=== PATIENT | female | born 1945 | race Caucasian/White ===

== ENCOUNTER → 2019-08-09 12:19 | Outpatient (BNVA) | payer MEDICARE, SELFPAY | PROVIDERS: Family Provider Nurse Practitioner Family; Visit Provider Nurse Practitioner Family | DX: I10 Essential (primary) hypertension (principal) | CPT/HCPCS: 80053; 85025 ==

== ENCOUNTER → 2020-01-08 10:55 | Outpatient (BNVA) | payer MEDICARE, SELFPAY | PROVIDERS: Family Provider Nurse Practitioner Family; Visit Provider Nurse Practitioner Family | DX: I10 Essential (primary) hypertension (principal); F41.9 Anxiety disorder, unspecified | CPT/HCPCS: 80053; 80061; 84443; 85025 ==

== ENCOUNTER → 2020-04-21 11:12 | Outpatient (BNVA) | payer MEDICARE, SELFPAY | PROVIDERS: Family Provider Nurse Practitioner Family; Visit Provider Nurse Practitioner Family | DX: M19.032 Primary osteoarthritis, left wrist (principal); M25.432 Effusion, left wrist; M25.532 Pain in left wrist; M79.602 Pain in left arm | CPT/HCPCS: 73080; 73110 ==

== ENCOUNTER → 2020-10-07 10:42 | Outpatient (BNVA) | payer MEDICARE, SELFPAY | PROVIDERS: Family Provider Nurse Practitioner Family; PCP Nurse Practitioner Family; Visit Provider Nurse Practitioner Family | DX: I10 Essential (primary) hypertension (principal); F41.9 Anxiety disorder, unspecified; M79.89 Other specified soft tissue disorders; R01.1 Cardiac murmur, unspecified; M15.9 Polyosteoarthritis, unspecified; R26.81 Unsteadiness on feet | CPT/HCPCS: 80053; 80061; 83880; 84443; 85025 ==

== ENCOUNTER 2020-11-03 10:57 | Outpatient (CLI) | payer MEDICARE, SELFPAY ==
--- NOTE | 2020-11-03 11:00 | USCV_ITS ---
Deyanira Yoon Age: 75 Gender: F : 1945 Exam Date: 11/03/2020 11:18 Ordering Phys: Alisa Garcia FOUNTAIN ATTENDANT-Schuyler Technologist: Kiera Philip Exam Location: [facility] [place] Indication: HTN BP: 132 / 56 HR: 68 Rhythm: Sinus Technical Quality: Good MEASUREMENTS (Male / Female) Normal Values 2D ECHO LV Diastolic Diameter PLAX 4.9 cm 4.2 - 5.9 / 3.9 - 5.3 cm LV Systolic Diameter PLAX 2.6 cm IVS Diastolic Thickness 1.1 cm 0.6 - 1.0 / 0.6 - 0.9 cm IVS Systolic Thickness 1.8 cm LVPW Diastolic Thickness 0.8 cm 0.6 - 1.0 / 0.6 - 0.9 cm LVPW Systolic Thickness 1.5 cm LVOT Diameter 2.0 cm LV Ejection Fraction 2D Teich 78.9 % LV Ejection Fraction MOD 2C 73.0 % LV Ejection Fraction 2C AL 73.3 % LA Diameter 3.3 cm LA Width 2.7 cm LA Height 3.6 cm RA Width 3.2 cm RA Height 2.9 cm Aorta at Sinotubular Diameter 2.9 cm M-MODE LV Diastolic Diameter MM 5.2 cm 4.2 - 5.9 / 3.9 - 5.3 cm LV Systolic Diameter MM 2.8 cm LV Ejection Fraction MM Teich 77.3 % IVS Diastolic Thickness MM 0.8 cm 0.6 - 1.0 / 0.6 - 0.9 cm IVS Systolic Thickness MM 1.6 cm LVPW Diastolic Thickness MM 1.0 cm 0.6 - 1.0 / 0.6 - 0.9 cm LVPW Systolic Thickness MM 1.5 cm Aortic Annulus Diameter 2.5 cm LA Ao Ratio MM 1.5 MV E Point Septal Separation 0.1 cm DOPPLER AV Peak Velocity 245.0 cm/s LVOT Peak Velocity 96.0 cm/s AV Area Cont Eq vti 1.5 cm squared AV Area Cont Eq pk 1.3 cm squared MV Area PHT 2.9 cm squared Mitral E to A Ratio 1.0 MV E' Velocity 70.8 cm/s Mitral E to MV E' Ratio 20.0 Mitral E to LV E' Lateral Ratio 26.1 Mitral E to LV E' Septal Ratio 16.4 TR Peak Velocity 262.0 cm/s TR Peak Gradient 27.5 mmHg TV Peak E Velocity 47.0 cm/s Right Atrial Pressure 3.0 mmHg Pulmonary Artery Systolic Pressu 30.5 mmHg PV Peak Velocity 123.0 cm/s RV Acceleration Time 0.1 s RV Ejection Time 0.3 s RV AcT/ET 0.3 FINDINGS Left Ventricle Normal left ventricular size and systolic function, EF 72 %. No regional wall motion abnormalities. Right Ventricle The right ventricle is normal in size and function. Right Atrium The right atrium is normal in size. Left Atrium The left atrium is normal in size. Mitral Valve Trace mitral valve regurgitation. Aortic Valve Thickened aortic valve. Trace to mild aortic valve regurgitation. Tricuspid Valve [id number] tricuspid valve regurgitation. Estimated pulmonary artery peak systolic pressure of 31 mmHg Pulmonic Valve Structurally normal pulmonic valve without significant stenosis. There is no pulmonic regurgitation. Pericardium Normal pericardium without effusion. Aorta Normal ascending aorta dimension. CONCLUSIONS Normal left ventricular size and systolic function, EF 72 %. No regional wall motion abnormalities. Thickened aortic valve. Trace to mild aortic valve regurgitation. Trace mitral valve regurgitation. [id number] tricuspid valve regurgitation. Estimated pulmonary artery peak systolic pressure of 31 mmHg. There is no pericardial effusion. There are no intracardiac masses. No previous study is available for comparison. Dr Alexandr Parry MD [facility] (Electronically Signed) Final Date: 09 Nov 2020 09:05 S
== END 2020-11-03 10:58 | disposition home or self-care (01) ==
LOC: RAD 11:01
PROVIDERS: PCP Nurse Practitioner Family; Visit Provider Nurse Practitioner Family
DX: I10 Essential (primary) hypertension (principal); R01.1 Cardiac murmur, unspecified; M79.89 Other specified soft tissue disorders; I08.3 Combined rheumatic disorders of mitral, aortic and tricuspid valves
CPT/HCPCS: 80053; 80061; 83880; 84443; 85025; 93306

== ENCOUNTER → 2021-01-13 15:32 | Outpatient (BNVA) | payer MEDICARE, SELFPAY | PROVIDERS: PCP Nurse Practitioner Family; Visit Provider Nurse Practitioner | DX: K59.00 Constipation, unspecified (principal); I10 Essential (primary) hypertension | CPT/HCPCS: 74018; 85025 ==

== ENCOUNTER → 2021-01-25 14:18 | Outpatient (BNVA) | payer MEDICARE, SELFPAY | PROVIDERS: PCP Nurse Practitioner Family; Visit Provider Nurse Practitioner | DX: K92.1 Melena (principal); R19.5 Other fecal abnormalities | CPT/HCPCS: 74018 ==

== ENCOUNTER → 2021-02-03 11:42 | Outpatient (BNVA) | payer MEDICARE, SELFPAY | PROVIDERS: PCP Nurse Practitioner Family; Visit Provider Nurse Practitioner | DX: R19.5 Other fecal abnormalities (principal); M19.90 Unspecified osteoarthritis, unspecified site; F41.9 Anxiety disorder, unspecified; I10 Essential (primary) hypertension; M47.894 Other spondylosis, thoracic region; M47.896 Other spondylosis, lumbar region; K56.7 Ileus, unspecified | CPT/HCPCS: 72072; 72100; 74018 ==

== ENCOUNTER 2021-02-21 11:39 | Emergency (ER) | payer MEDICARE, SELFPAY ==
[2021-02-21 11:58] VITALS: BP 119/67; PULSE 80; RESP 18; TEMP 36.9; O2SAT 98; BMI 24.7
[2021-02-21 12:28] VITALS: BP 111/70; PULSE 72; RESP 18; O2SAT 98
--- NOTE | 2021-02-21 12:28 | ED_ITS ---
HPI - General Adult General: Chief complaint: GI Bleed Stated complaint: ABDOMINAL PAIN/ GI BLEEDING Time Seen by Provider: 02/21/21 11:42 History of Present Illness: HPI narrative: Patient is a 75-year-old female with history of anxiety, hypertension, on aspirin who presents the emergency room with complaints of rectal bleeding and passage of clots x1 day. Patient says that over the last month, she has had some lower abdominal pain and she thinks that my bladder in my rectum is hurting. Earlier today, patient says that she cannot control her urine bladder and accidentally released herself. In addition, shortly after, she had the episode of rectal bleeding with bright red blood and dark stool. Patient denies any hemoptysis, melena/abdominal pain, nausea/vomiting, any anticoagulation use. Onset:1 day acutely, 1 month chronically Duration:1 day acutely Location:home Severity:mild/moderate Review of Systems Narrative: Constitutional: No fever, no chills. HEENT: No vision changes CV: No chest pain, no palpitations PULM: no cough, no dyspnea. GI: +lower abdominal pain, no N/V/D. +rectal bleeding : No dysuria, +polyuria MSKEL: No muscle pain SKIN: No new rashes, no lesions. NEURO: No headache, no focal weakness. HEME: No visible bruises PSYCH: Normal mood PFSH ED PFSH: Medical History Anxiety Arthritis Environmental and seasonal allergies Essential hypertension Surgical History Hx of cholecystectomy Hx of hernia repair Hx of total hysterectomy 1996 Family History Mother Diabetes Cancer ovarian, breast, Grandmother Diabetes Father Congestive heart failure Social History Second hand smoke exposure: No Smoking risk assessment/counseling performed?: No Alcohol intake: never Desire information about alcohol rehabilitation?: No Counseling given: No Desire information about substance/drug rehabilitation?: No Counseling given: No Adopted: No Caregiver/support person: No Lives independently: Yes Household members: none Housing: House Marital status: / service: No Current occupational status: retired History of recent travel: No Current gender identity: Female Female Reproductive History: Date of last menstrual period: 09/03/20 Physical Exam Narrative: EXAM NARRATIVE: Head: Atraumatic Eyes: PERRL, conjunctiva without injection ENT: Mucous membrane moist NECK: Supple, ROM intact LUNGS: LCTAB, no crackles/rhonchi CV: RRR ABDOMEN: Soft, +mild lower abdominal tenderness. NO guarding rebound, guarding, rigidity. No CVA tenderness to percussion. Neg Wiseman/Neg McBurney's point tenderness, no suprabupic tenderness to palpation. EXTREMITY: Normal ROM SKIN: No rash or erythema NEURO: Awake and alert, no focal motor deficits PSYCH: Normal mood and affect RECTAL: Rectal exam without evidence of hemorrhoids, fissures. No prostatic enlargment, no tenderness of prostate. +bright blood per rectum Course Vital Signs: Vital signs: Vital Signs Temperature 98.5 F 02/21/21 11:58 Pulse Rate 71 02/21/21 15:29 Respiratory Rate 18 02/21/21 12:28 Blood Pressure 131/72 02/21/21 15:29 Pulse Oximetry 99 02/21/21 15:29 MDM - General Adult MDM Narrative: Medical decision making narrative: 75-year-old female presenting to the emergency room with complaints of lower abdominal pain, blood in stool, and concern for dark stool. On exam, patient is hemodynamically stable with mild tenderness to palpation of the lower abdomen. On rectal exam, patient is noted to have bright red blood. No signs of melena. On reassessment, HDS without any signs of pain or bleeding. Findings of rectal mass concerning for cancer discussed extensively with patient. I discussed case with Dr. Buchanan, who recommended outpatient followup tomorrow morning in his clinic to establish care for for proctoscopy and biopsy. I have discussed this option and have given patient the provider's clinic phone number and contact information. Patient also has Dr. Sims with whom she is scheduled for colonoscopy on 03/11/2021. I also explained to the patient that she can follow upw ith Dr. Sims should she chose to. A copy of her CT report is included in her discharge paperwork. Disposition: Discharge. Patient is given return precautions for any signs of worsening bleed, abdominal complaints, vomiting, dehydration, lightheadedness, or any new or concerning complaints. Lab Data: Labs: Lab Results 02/21/21 02/21/21 02/21/21 Range/Units 11:55 11:55 11:55 WBC 4.9 (4.0-10.0) 10^3/ uL RBC 3.88 L (4.1-5.3) 10^6/u L Hgb 11.8 (11.5-15.3) g/dL Hct 37.1 (37.0-47.0) % MCV 95.6 (81-99) fl MCH 30.4 (28.0-34.0) pg MCHC 31.8 (30.0-36.0) g/dL RDW 14.3 (12.1-15.1) % Plt Count 245 (130-400) 10^3/c mm MPV 9.7 (7.4-10.4) fL Neut % (Auto) 77.7 % Lymph % (Auto) 14.2 % Claiborne % (Auto) 6.7 % Eos % (Auto) 0.8 % Baso % (Auto) 0.4 % Neut # (Auto) 3.82 (1.8-7.7) 10^3/u L Lymph # (Auto) 0.7 L (0.8-4.8) 10^3/u L Claiborne # (Auto) 0.3 (0.2-0.9) 10^3/u L Eos # (Auto) 0.0 (0.0-0.8) 10^3/u L Baso # (Auto) 0.0 (0.0-0.1) 10^3/u L Nucleated RBC % (a uto) 0 % Nucleated RBCs # 0.0 /100WBC PT 14.00 (12.1-14.9) SECO NDS INR 1.05 (0.8-1.2) APTT 28.5 (23.9-36.7) SECO NDS Sodium 140 (136-145) mmol/L Potassium 3.9 (3.5-5.1) mmol/L Chloride 105 (98-107) mmol/L Carbon Dioxide 25 (22-29) mmol/L Anion Gap 13.9 (5-19) BUN 12 (8-23) mg/dL Creatinine 0.4 L (0.5-0.9) mg/dL GFR Calculation Not Reportable Glucose 81 (65-115) mg/dL Calculated Osmolal ity 289 (285-295) mOsm/k g Calcium 8.6 (8.5-10.5) mg/dL Total Bilirubin 0.6 (0.15-1.2) mg/dL AST 17 (0-32) U/L ALT 10 (0-33) U/L Alkaline Phosphata se 63 (35-105) IU/L Total Protein 6.1 L (6.6-8.7) g/dL Albumin 3.5 (3.5-5.2) g/dL Globulin 2.6 (1.3-4.6) g/dL Lipase 29 (13-60) U/L Urine Color (Yellow) Urine Appearance (CLEAR) Urine pH (5-7) Ur Specific Gravit y (1.005-1.030) Urine Protein (Negative) Urine Glucose (UA) (Normal) Urine Ketones (Negative) Urine Blood (Negative) Urine Nitrate (Negative) Urine Bilirubin (Negative) Urine Urobilinogen (Negative) mg/dL Ur Leukocyte Kiki ase (Negative) Urine RBC (0-2) /hpf Urine WBC (0-5) /hpf Ur Squamous Epith Cells (0-5) /hpf Amorphous Sediment Urine Bacteria (NONE) /hpf Blood Type Rho(D) Type Antibody Screen 02/21/21 02/21/21 Range/Units 11:55 14:14 WBC (4.0-10.0) 10^3/ uL RBC (4.1-5.3) 10^6/u L Hgb (11.5-15.3) g/dL Hct (37.0-47.0) % MCV (81-99) fl MCH (28.0-34.0) pg MCHC (30.0-36.0) g/dL RDW (12.1-15.1) % Plt Count (130-400) 10^3/c mm MPV (7.4-10.4) fL Neut % (Auto) % Lymph % (Auto) % Claiborne % (Auto) % Eos % (Auto) % Baso % (Auto) % Neut # (Auto) (1.8-7.7) 10^3/u L Lymph # (Auto) (0.8-4.8) 10^3/u L Claiborne # (Auto) (0.2-0.9) 10^3/u L Eos # (Auto) (0.0-0.8) 10^3/u L Baso # (Auto) (0.0-0.1) 10^3/u L Nucleated RBC % (a uto) % Nucleated RBCs # /100WBC PT (12.1-14.9) SECO NDS INR (0.8-1.2) APTT (23.9-36.7) SECO NDS Sodium (136-145) mmol/L Potassium (3.5-5.1) mmol/L Chloride (98-107) mmol/L Carbon Dioxide (22-29) mmol/L Anion Gap (5-19) BUN (8-23) mg/dL Creatinine (0.5-0.9) mg/dL GFR Calculation Glucose (65-115) mg/dL Calculated Osmolal ity (285-295) mOsm/k g Calcium (8.5-10.5) mg/dL Total Bilirubin (0.15-1.2) mg/dL AST (0-32) U/L ALT (0-33) U/L Alkaline Phosphata se (35-105) IU/L Total Protein (6.6-8.7) g/dL Albumin (3.5-5.2) g/dL Globulin (1.3-4.6) g/dL Lipase (13-60) U/L Urine Color Yellow (Yellow) Urine Appearance Clear (CLEAR) Urine pH 7 (5-7) Ur Specific Gravit y 1.005 (1.005-1.030) Urine Protein Neg (Negative) Urine Glucose (UA) Norm (Normal) Urine Ketones 1+ H (Negative) Urine Blood 3+ H (Negative) Urine Nitrate Negative (Negative) Urine Bilirubin Neg (Negative) Urine Urobilinogen 1 H (Negative) mg/dL Ur Leukocyte Kiki ase Negative (Negative) Urine RBC Rare (0-2) /hpf Urine WBC 0-4 H (0-5) /hpf Ur Squamous Epith Cells 0-4 H (0-5) /hpf Amorphous Sediment Not Reportable Urine Bacteria Trace (NONE) /hpf Blood Type O Positive Rho(D) Type Positive Antibody Screen Negative Imaging Data^: Other Imaging: Radiologist's impression: [facility] [place], [place] [address] Scan ReportSigned Patient: Andreas Yoon #: [id number]: 1945cct#:[id number]/Sex: 75 / FADM Date: 02/21/21Loc: ERRoom/Bed:Attending Dr: Ordering Provider/Ordering MD: Riley Steele MD Date of Service: 02/21/21 Procedure(s): CT abdomen pelvis w con* [id number] Accession Number(s): [id number] Report Number: [id number] PROCEDURE INFORMATION: Exam: CT Abdomen And Pelvis With Contrast Exam date and time: 02/21/2021 12:27 PM Age: 75 years old Clinical indication: Abdominal pain; Colic; Patient HX: Hematochezia; Additional info: Rule out diverticulosis TECHNIQUE: Imaging protocol: Computed tomography of the abdomen and pelvis with contrast. Radiation optimization: All CT scans at this facility use at least one of these dose optimization techniques: automated exposure control; mA and/or kV adjustment per patient size (includes targeted exams where dose is matched to clinical indication); or iterative reconstruction. Contrast material: OMNIPAQUE 300; Contrast volume: 95 ml; Contrast route: INTRAVENOUS (IV); COMPARISON: CR XR abdomen 1V* [id number] 02/03/2021 11:44 AM RADIATION DOSE METRICS: Total DLP (mGy-cm): 1111.14 FINDINGS: Liver: No mass. Gallbladder and bile ducts: Cholecystectomy. Minimal nonspecific extrahepatic ductal dilatation. Pancreas: Normal. No ductal dilation. Spleen: Normal. No splenomegaly. Adrenal glands: Normal. No mass. Kidneys and ureters: Normal. No hydronephrosis. Stomach and bowel: Probably ulcerated rectal mass, approximately 6 cm maximum diameter. Direct extension posteriorly from the mass into the presacral space, no adjacent sacral or coccygeal destruction. The proximal colon is minimally dilated, there is a moderate amount of fecal material. Colonic diverticulosis without acute diverticulitis. Appendix: No evidence of appendicitis. Intraperitoneal space: No free air. No significant fluid collection. Vasculature: No abdominal aortic aneurysm. Lymph nodes: No significant adenopathy. Urinary bladder: Unremarkable as visualized. Reproductive: Unremarkable as visualized. Bones/joints: No acute findings. Lower lumbar fusion. No acute fracture. Soft tissues: No acute findings. Postoperative change in the groin. CT/CT abdomen pelvis w con* [id number] IMPRESSION: Ulcerative rectal mass consistent with carcinoma, direct soft tissue extension posteriorly from the rectal mass into the presacral space. Correlate with proctoscopy. Radiation Dose CTDIVOL = (mGy): DLP = 1111.14 (mGy-cm) Dictated By:Juan Carlos Collier MDSigned By:Juan Carlos Collier MDSigned Date/Time:02/21/21 1441DD/ 1439 Discharge Plan Discharge Patient Disposition: Home Clinical Impression: Abdominal pain, Blood per rectum Condition: Stable Prescriptions: No Action aspirin [Adult Low Dose Aspirin] 81 mg tablet,delayed release (DR/EC) 81 mg PO DAILY RF: 0 loratadine [Claritin] 10 mg tablet 10 mg PO DAILY PRN (Reason: Allergy Symptoms) RF: 0 ibuprofen 200 mg tablet 200 mg PO Q6H PRN (Reason: Pain) RF: 0 Hold Instructions: Doctor's Order metoprolol succinate 25 mg tablet extended release 24 hr 25 mg PO DAILY 90 Days Qty: 90 RF: 1 hydroxyzine pamoate 25 mg capsule 25 mg PO BID PRN (Reason: anxiety) Qty: 60 RF: 2 losartan [Cozaar] 100 mg tablet 100 mg PO DAILY Qty: 30 RF: 2 citalopram 10 mg tablet 10 mg PO DAILY MDD see pharmacy comment RF: 0 Discharge Orders: Discharge ED (Routine); Ordered 02/21/21 Ordered By: Riley Steele Referrals: Alisa Garcia FNP-C [Primary Care Provider] - Patient Instructions: Abdominal Pain (ED) Activity Restrictions/Additional Instructions: Call Dr. Mckeon tomorrow morning to schedule for an appointment. His number is [phone]. Alternatively you can follow up with Dr. Sims. Come back to the emergency room if your symptoms worsen if you have any more rectal bleeding, any other concerning complaints. Here's your CT report: [facility] [place], [place] [address] Scan ReportSigned Patient: Andreas Yoon #: [id number]: 1946Acct#:[id number]/Sex: 75 / FADM Date: 02/21/21Loc: ERRoom/Bed:Attending Dr: Ordering Provider/Ordering MD: Riley Steele MD Date of Service: 02/21/21 Procedure(s): CT abdomen pelvis w con* [id number] Accession Number(s): [id number] Report Number: [id number] PROCEDURE INFORMATION: Exam: CT Abdomen And Pelvis With Contrast Exam date and time: 02/21/2021 12:27 PM Age: 75 years old Clinical indication: Abdominal pain; Colic; Patient HX: Hematochezia; Additional info: Rule out diverticulosis TECHNIQUE: Imaging protocol: Computed tomography of the abdomen and pelvis with contrast. Radiation optimization: All CT scans at this facility use at least one of these dose optimization techniques: automated exposure control; mA and/or kV adjustment per patient size (includes targeted exams where dose is matched to clinical indication); or iterative reconstruction. Contrast material: OMNIPAQUE 300; Contrast volume: 95 ml; Contrast route: INTRAVENOUS (IV); COMPARISON: CR XR abdomen 1V* [id number] 02/03/2021 11:44 AM RADIATION DOSE METRICS: Total DLP (mGy-cm): 1111.14 FINDINGS: Liver: No mass. Gallbladder and bile ducts: Cholecystectomy. Minimal nonspecific extrahepatic ductal dilatation. Pancreas: Normal. No ductal dilation. Spleen: Normal. No splenomegaly. Adrenal glands: Normal. No mass. Kidneys and ureters: Normal. No hydronephrosis. Stomach and bowel: Probably ulcerated rectal mass, approximately 6 cm maximum diameter. Direct extension posteriorly from the mass into the presacral space, no adjacent sacral or coccygeal destruction. The proximal colon is minimally dilated, there is a moderate amount of fecal material. Colonic diverticulosis without acute diverticulitis. Appendix: No evidence of appendicitis. Intraperitoneal space: No free air. No significant fluid collection. Vasculature: No abdominal aortic aneurysm. Lymph nodes: No significant adenopathy. Urinary bladder: Unremarkable as visualized. Reproductive: Unremarkable as visualized. Bones/joints: No acute findings. Lower lumbar fusion. No acute fracture. Soft tissues: No acute findings. Postoperative change in the groin. CT/CT abdomen pelvis w con* [id number] IMPRESSION: Ulcerative rectal mass consistent with carcinoma, direct soft tissue extension posteriorly from the rectal mass into the presacral space. Correlate with proctoscopy. Radiation Dose CTDIVOL = (mGy): DLP = 1111.14 (mGy-cm) Dictated By:Juan Carlos Collier MDSigned By:Juan Carlos Collier MDSigned Date/Time:02/21/21 1441DD/ 1439 Coding Level of Care Code ED Operations Project Manager for g Maryjane
--- NOTE | 2021-02-21 12:28 | W.ED.GIBLEED ---
HPI - GI Bleed General: Chief complaint: GI Bleed Stated complaint: ABDOMINAL PAIN/ GI BLEEDING Time Seen by Provider: 02/21/21 11:42 [facility] ED PFSH: Medical History Anxiety Arthritis Environmental and seasonal allergies Essential hypertension Surgical History Hx of cholecystectomy Hx of hernia repair Hx of total hysterectomy 1996 Family History Mother Diabetes Cancer ovarian, breast, Grandmother Diabetes Father Congestive heart failure Social History Second hand smoke exposure: No Smoking risk assessment/counseling performed?: No Alcohol intake: never Desire information about alcohol rehabilitation?: No Counseling given: No Desire information about substance/drug rehabilitation?: No Counseling given: No Adopted: No Caregiver/support person: No Lives independently: Yes Household members: none Housing: House Marital status: / service: No Current occupational status: retired History of recent travel: No Current gender identity: Female Course Vital Signs: Vital signs: Vital Signs Temperature 98.5 F 02/21/21 11:58 Pulse Rate 80 02/21/21 11:58 Respiratory Rate 18 02/21/21 11:58 Blood Pressure 119/67 02/21/21 11:58 Pulse Oximetry 98 02/21/21 11:58 Discharge Plan Discharge Prescriptions: No Action aspirin [Adult Low Dose Aspirin] 81 mg tablet,delayed release (DR/EC) 81 mg PO DAILY RF: 0 loratadine [Claritin] 10 mg tablet 10 mg PO DAILY PRNRF: 0 ibuprofen 200 mg tablet 200 mg PO Q6H PRNRF: 0 Hold Instructions: Doctor's Order metoprolol succinate 25 mg tablet extended release 24 hr 25 mg PO DAILY 90 Days Qty: 90 RF: 1 citalopram [Celexa] 40 mg tablet 20 mg PO DAILY Qty: 30 RF: 2 hydroxyzine pamoate 25 mg capsule 25 mg PO BID PRN (Reason: anxiety) Qty: 60 RF: 2 furosemide 20 mg tablet 20 mg PO DAILY Qty: 30 RF: 2 losartan [Cozaar] 100 mg tablet 100 mg PO DAILY Qty: 30 RF: 2 Coding Level of Care Code ED Panel Saw Operator for Sofi Wesley
[2021-02-21 12:46] LABS: INR 1.05 (0.8-1.2)
[2021-02-21 12:47] LABS: Partial Thromboplastin Time 28.5 SECONDS (23.9-36.7)
[2021-02-21 12:51] LABS: Alanine Aminotransferase 10 U/L (0-33); Albumin Level 3.5 g/dL (3.5-5.2); Alkaline Phosphatase 63 IU/L (35-105); Anion Gap 13.9 (5-19); Aspartate Amino Transferase 17 U/L (0-32); Blood Urea Nitrogen 12 mg/dL (8-23); Calcium 8.6 mg/dL (8.5-10.5); Carbon Dioxide 25 mmol/L (22-29); Chloride 105 mmol/L (98-107); Globulin 2.6 g/dL (1.3-4.6); Glucose 81 mg/dL (65-115); Lipase 29 U/L (13-60); Osmolality Calculated 289 mOsm/kg (285-295); Potassium 3.9 mmol/L (3.5-5.1); Sodium 140 mmol/L (136-145); Total Bilirubin 0.6 mg/dL (0.15-1.2); Total Protein 6.1 g/dL (6.6-8.7)
[2021-02-21 12:56] LABS: Basophils % 0.4 %; Eosinophils % 0.8 %; Hematocrit 37.1 % (37.0-47.0); Hemoglobin 11.8 g/dL (11.5-15.3); Lymphocytes # 0.7 10^3/uL (0.8-4.8); Lymphocytes % 14.2 %; Mean Corpuscular HGB Conc 31.8 g/dL (30.0-36.0); Mean Corpuscular Hemoglobin 30.4 pg (28.0-34.0); Mean Corpuscular Volume 95.6 fl (81-99); Mean Platelet Volume 9.7 fL (7.4-10.4); Monocytes # 0.3 10^3/uL (0.2-0.9); Monocytes % 6.7 %; Neutrophils # 3.82 10^3/uL (1.8-7.7); Neutrophils % 77.7 %; Nucleated Red Blood Cells % 0 %; Platelet Count 245 10^3/cmm (130-400); Red Blood Count 3.88 10^6/uL (4.1-5.3); Red Cell Distribution Width 14.3 % (12.1-15.1); White Blood Count 4.9 10^3/uL (4.0-10.0)
[2021-02-21] MEDS: iohexol 300 mg/mL 100 mL Btl IV (13:19)
[2021-02-21 15:29] VITALS: BP 131/72; PULSE 71; O2SAT 99
[2021-02-21 15:30] LABS: Glucose Urine UA Norm (Normal); Ketones Urine 1+ (Negative); Protein Urine Neg (Negative); Specific Gravity, Urine 1.005 (1.005-1.030); Urine Appearance Clear (CLEAR); Urine Color Yellow (Yellow); pH Urine 7 (5-7)
[2021-02-21 15:31] LABS: Add Urine Culture? No; Add Urine Microscopic? YES; Bacteria Urine TRACE /hpf; Bilirubin Urine Neg (Negative); Blood Urine 3+ (Negative); Leukocyte Esterase Urine Negative (Negative); Nitrate Urine Negative (Negative); RBC Urine RARE /hpf (0-2); Squamous Epithelial Cell Urine 0-4 /hpf (0-5); Urobilinogen Urine 1 mg/dL (Negative); WBC Urine 0-4 /hpf (0-5)
--- NOTE | 2021-02-22 10:36 | DCPLANNER ---
care transition manager had message to schedule a follow up appointment for patient with GI specialist. care transition manager spoke with patient and she would like for business case analyst to fax patients information to the office of Dr. Sims. care transition manager faxed patients information to the office of Dr. Sims, who will call patient with appointment information.
--- NOTE | 2021-03-02 14:40 | DCPLANNER ---
power plant operations manager called and spoke with Hannah at the office of Dr. Sims, to confirm that patient has been seen. power plant operations manager was told that patient was seen by provider.
== END 2021-02-21 15:29 | disposition home or self-care (01) ==
PROVIDERS: Emergency Provider Emergency Medicine; PCP Nurse Practitioner Family
DX: K62.5 Hemorrhage of anus and rectum (principal); R10.9 Unspecified abdominal pain; Z79.82 Long term (current) use of aspirin; I10 Essential (primary) hypertension
CPT/HCPCS: 74177; 80053; 81001; 83690; 85025; 85610; 85730; 86850; 86900; 99283; Q9967

== ENCOUNTER 2021-03-11 09:55 | Outpatient (CLI) | payer MEDICARE, SELFPAY ==
--- NOTE | 2021-03-11 13:49 | ONC CON_ITS ---
Dr. Amaral New Patient Note Patient: Deyanira Yoon Unit #: [id number]: 1945 Dicatated By: Ana Amaral M.D.Date of Visit: Mar 11, 2021 Onc MED New Patient/Consult Referring Physician: Dr. Radhames Sims M.D. History of Present Illness: Ms. Car Mcmillan, is a 75-year-old female with history of progressive constipation/abdominal fullness due to that weight loss about 30 pounds over the period of 3 months, also occasionally fresh blood in the stool but denies any hemoptysis hematemesis, Went to [facility] on February 21, 2021 with abdominal pain and bleeding per rectum and passing some clots of 1 day duration, she underwent CT scan of abdomen pelvis on February 21, 2021 which showed ulcerative rectal mass consistent with carcinoma, direct soft tissue extension posteriorly from the rectal mass into the presacral space no intra-abdominal lymphadenopathy no splenomegaly or any abnormality in the liver. Patient was referred to Dr. Sims and on February 25, 2021 she underwent colonoscopy which showed in the mid transverse colon, a sessile polyp 7 mm in diameter, was not bleeding. It was completely excised by snare. 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 Patient denies any history of recurrent infections, denies any history of opportunistic infections, denies any history of high risk behavior. Denies any history of jaundice denies any history of immunosuppression therapy. Past Medical History: Ms. Bobo medical history consists of anxiety, arthritis, depression, heart palpitations, hypertension, and renal calculi. Past Surgical History: Ms. Bobo surgical/procedural history consists of back surgery, cholecystectomy, hernia repair, and hysterectomy/bilateral salpingectomy-oophorectomy. Medications: Acetaminophen , Adult Aspirin EC Low Strength 1 Tablet (of 81 mg) Tablet, enteric coated Oral daily, Cholecalciferol 1 Caplet (of 250 mcg ) Capsule Oral daily, Citalopram Hydrobromide 1 Tablet (of 20 mg) Oral daily, Furosemide 1 Tablet (of 20 mg) Oral daily PRN, hydrOXYzine HCl 1 Tablet (of 25 mg) Oral b.i.d. PRN, Ibuprofen 1 Tablet (of 200 mg) Capsule Oral PRN, Loratadine (10 mg) Capsule Oral daily, Losartan Potassium 1 Tablet (of 100 mg) Oral daily, Metoprolol Succinate ER 1 Tablet (of 25 mg) Tablet SR 24 HR Oral daily, Vitamin C 1 Caplet (of 500 mg) Capsule Oral daily Allergies: Lovastatin Social History: Ms. Yoon is . Ms. Yoon has never smoked. She has no history of drinking. Family History: Ms. Yoon's mother at age 73: breast cancer, and type II diabetes. Ms. Yoon's father at age 73: congestive heart failure, and osteoporosis. Ms. Yoon's maternal grandmother is : type II diabetes. Her paternal grandmother is : lung cancer. Review Of Symptoms: Review of Systems is not available for this patient. Vital Signs: Performed on Mar 11, 2021 11:10: 0, 0, 96 %, 64 /min, 18 /min, 153/77 mm(hg) (HIGH), and 99.1 F (HIGH). Performance Status: 1 - No physically strenuous activity, but ambulatory and able to carry out light or sedentary work (e.g. office work, light house work). (ECOG) Physical Examination: ENMT - No mouth sores, no thrush, no jaundice no cervical lymphadenopathy no axillary lymphadenopathy, Respiratory - Lungs are clear to auscultation, Cardiovascular - Regular rate and rhythm of heart, Abdomen - Soft, bowel sounds present, Extremities - No visible edema. Lab/Imaging: Most recent lab results are not available for this patient. Impression: Aggressive B-cell lymphoma per rectal biopsy done on February 25, 2021 CT scan of the abdomen pelvis done on February 21, 2021 shows ulcerative rectal mass consistent with carcinoma, direct soft tissue extension posteriorly from the rectal mass into the presacral space. No abdominal/pelvic lymphadenopathy no splenomegaly no hepatic abnormality. History of hypertension, Anxiety/depression Arthritis Kidney stone. Plan: Discussed with patient regarding her disease status and further work-up and treatment options, case was discussed with pathology this morning, molecular profiling to confirm double hit or triple hit is pending., At this point, we will consider staging work-up with CT PET scan and also request Dr. Sims for Port-A-Cath placement. Consider prechemotherapy echocardiogram. Considering rectal lymphoma being exceedingly rare diagnosis, we will refer her to lymphoma clinic at [facility] in [place] for evaluation for clinical trial or for second opinion. We will also obtain baseline CBC CMP and LDH and patient return to clinic 1 week after her evaluation at [facility]. Signed By: Ana Amaral M.D. <<Signature on File>>
== END 2021-03-11 09:56 | disposition home or self-care (01) ==
LOC: ONCMED 10:04
PROVIDERS: PCP Nurse Practitioner Family; Visit Provider Internal Medicine Hematology & Oncology
DX: C83.30 Diffuse large B-cell lymphoma, unspecified site (principal); I10 Essential (primary) hypertension; F41.9 Anxiety disorder, unspecified; F32.9 Major depressive disorder, single episode, unspecified; M19.90 Unspecified osteoarthritis, unspecified site; N20.0 Calculus of kidney; Z79.899 Other long term (current) drug therapy
CPT/HCPCS: 99205

== ENCOUNTER 2021-03-17 08:42 | Outpatient (CLI) | payer MEDICARE, SELFPAY ==
--- NOTE | 2021-03-17 08:49 | USCV_ITS ---
Deyanira Yoon Age: 75 Gender: F : 1945 Exam Date: 03/17/2021 09:26 Ordering Phys: Ana Amaral MD Technologist: Kiera Philip [place] [facility] [facility] [place]ication: BASELINE, HIGH RISK MEDICATION BP: 140 / 70 HR: 55 Rhythm: Sinus Technical Quality: Adequate MEASUREMENTS (Male / Female) Normal Values 2D ECHO LV Diastolic Diameter PLAX 5.1 cm 4.2 - 5.9 / 3.9 - 5.3 cm LV Systolic Diameter PLAX 3.1 cm IVS Diastolic Thickness 1.3 cm 0.6 - 1.0 / 0.6 - 0.9 cm IVS Systolic Thickness 1.8 cm LVPW Diastolic Thickness 1.1 cm 0.6 - 1.0 / 0.6 - 0.9 cm LVPW Systolic Thickness 1.7 cm LVOT Diameter 2.0 cm LV Ejection Fraction 2D Teich 70.0 % LA Diameter 2.9 cm LA Width 2.9 cm LA Height 5.5 cm RA Width 4.6 cm RA Height 4.6 cm Aorta at Sinotubular Diameter 2.4 cm M-MODE Aortic Annulus Diameter 2.3 cm LA Ao Ratio MM 1.4 MV E Point Septal Separation 0.6 cm FINDINGS Left Ventricle Normal left ventricular size and systolic function, EF 70%.no regional wall motion abnormalities. Mild left ventricular hypertrophy. Right Ventricle Normal right ventricular size and systolic function. Right Atrium Mildly increased right atrial size. Left Atrium Normal left atrial size. Mitral Valve Thickened mitral valve. Aortic Valve Thickened aortic valve with restricted mobility. Tricuspid Valve Gross abnormalities noted Pulmonic Valve No gross abnormalities noted Pericardium Normal pericardium without effusion. Aorta Normal ascending aorta dimension. CONCLUSIONS Normal left ventricular size and systolic function, EF 70%.no regional wall motion abnormalities. Mild left ventricular hypertrophy. Thickened aortic valve with restricted mobility. Thickened mitral valve. Mildly increased right atrial size. Normal right ventricular size and systolic function. There is no pericardial effusion. There are no intracardiac masses. Dr Alexandr Parry MD [facility] (Electronically Signed) Final Date: 17 March 2021 10:19 S
== END 2021-03-17 08:43 | disposition home or self-care (01) ==
LOC: RAD 08:44
PROVIDERS: PCP Nurse Practitioner Family; Visit Provider Internal Medicine Hematology & Oncology
DX: Z79.899 Other long term (current) drug therapy (principal); I08.0 Rheumatic disorders of both mitral and aortic valves
CPT/HCPCS: 93308

== ENCOUNTER → 2021-04-01 11:33 | Outpatient (BNVA) | payer MEDICARE, SELFPAY | PROVIDERS: PCP Nurse Practitioner Family; Visit Provider Surgery | DX: Z01.812 Encounter for preprocedural laboratory examination (principal); Z20.822 Contact with and (suspected) exposure to COVID-19 | CPT/HCPCS: 87635 ==

== ENCOUNTER 2021-04-02 10:16 | Outpatient (CLI) | payer MEDICARE, SELFPAY ==
[2021-04-02 11:13] LABS: Basophils % 0.2 %; Eosinophils % 0.4 %; Hematocrit 36.9 % (37.0-47.0); Hemoglobin 11.8 g/dL (11.5-15.3); Lymphocytes % 18.6 %; Mean Corpuscular Hemoglobin 30.8 pg (28.0-34.0); Mean Corpuscular Volume 96.3 fl (81-99); Mean Platelet Volume 9.3 fL (7.4-10.4); Monocytes # 0.5 10^3/uL (0.2-0.9); Monocytes % 9.4 %; Neutrophils # 3.71 10^3/uL (1.8-7.7); Neutrophils % 71.2 %; Nucleated Red Blood Cells % 0 %; Platelet Count 265 10^3/cmm (130-400); Red Blood Count 3.83 10^6/uL (4.1-5.3); Red Cell Distribution Width 14.6 % (12.1-15.1); White Blood Count 5.2 10^3/uL (4.0-10.0)
[2021-04-02 11:35] LABS: Alanine Aminotransferase 10 U/L (0-33); Albumin Level 3.9 g/dL (3.5-5.2); Alkaline Phosphatase 62 IU/L (35-105); Anion Gap 12.6 (5-19); Aspartate Amino Transferase 15 U/L (0-32); Blood Urea Nitrogen 16 mg/dL (8-23); Calcium 9.5 mg/dL (8.5-10.5); Carbon Dioxide 27 mmol/L (22-29); Chloride 103 mmol/L (98-107); Globulin 2.7 g/dL (1.3-4.6); Glucose 83 mg/dL (65-115); Lactate Dehydrogenase 233 U/L (135-214); Osmolality Calculated 288 mOsm/kg (285-295); Potassium 3.6 mmol/L (3.5-5.1); Sodium 139 mmol/L (136-145); Total Bilirubin 0.6 mg/dL (0.15-1.2); Total Protein 6.6 g/dL (6.6-8.7)
[2021-04-02 12:05] LABS: Hepatitis A Antibody IgM Non-Reactive (Nonreactive); Hepatitis B Core AB, Total Non-Reactive (Nonreactive); Hepatitis B Surface AB 3.5 (11.5-1000); Hepatitis B Surface Antigen Non-Reactive (Nonreactive); Hepatitis C Virus Antibody Non-Reactive (Nonreactive)
== END 2021-04-02 10:17 | disposition home or self-care (01) ==
LOC: ONCMED 10:17
PROVIDERS: PCP Nurse Practitioner Family; Visit Provider Internal Medicine Hematology & Oncology
DX: C83.39 Diffuse large B-cell lymphoma, extranodal and solid organ sites (principal); D64.9 Anemia, unspecified; Z79.899 Other long term (current) drug therapy; Z51.81 Encounter for therapeutic drug level monitoring
CPT/HCPCS: 36415; 80053; 83615; 85025; 86705; 86706; 86709; 86803; 87340

== ENCOUNTER 2021-04-05 14:56 | Outpatient (CLI) | payer MEDICARE, SELFPAY ==
--- NOTE | 2021-04-05 20:03 | ONC CON_ITS ---
Dr. Munoz New Patient Note Patient: Deyanira Yoon Unit #: [id number]: 1945 Dicatated By: Rob Munoz M.D.Date of Visit: Apr 05, 2021 Onc MED New Patient/Consult Referring Physician: Dr. Radhames Sims M.D. Chief Complaint: Lymphoma. 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 She had presented with constipation, change in bowel habit, and weight loss. Her colonoscopy on 02/25/2021 showed a malignant appearing mass in the rectum, biopsy of which was consistent with high-grade large B-cell lymphoma, germinal center immunophenotype. Her CT abdomen/pelvis showed a rectal mass measuring 6 cm with direct extension into the presacral space. There was no associated adenopathy. PET/CT on 03/27/2021 showed FDG avid eccentric rectal wall thickening measuring 3.2 x 47.7 cm, SUV 47.7. There was some prominent cecal uptake which was thought to likely be physiologic. There was no evidence of raman disease or other areas of involvement. She had second opinion evaluation with Dr. Bustillo at [facility] on 03/31/2021. The overall findings were consistent with diffuse large B-cell lymphoma, germinal center phenotype, stage I E. She was recommended to undergo treatment with 4 cycles of R-CHOP chemotherapy followed by consolidation radiation as indicated. She was recommended to begin on immediate steroid therapy with prednisone 80 mg daily and it was also recommended that with her first cycle of treatment the rituximab be administered 7 to 14 days prior to the CHOP chemotherapy. She is seen now for a follow-up visit. She began on her prednisone therapy last week. She did have a bowel movement after the first dosage, and since then she has continued to have constipation. She has had no further rectal bleeding, though. She has limited activity tolerance, that seems to be due largely to chronic knee pain. She is able to live independently and care for an invalid daughter. Her ECOG score is 1. Her appetite has been okay. She has been eating smaller meals more frequently. She does not have fever or night sweats. She has not had sore mouth or throat. She has no shortness of breath, cough, or chest pain. She is not having any nausea or acid reflux symptoms. She does word having some burning across her lower abdomen/perineal area. Her urination has been more frequent. She does not complain of headache or dizziness. She has had some numbness in both hands. Past Medical History: Her medical history includes anxiety, arthritis, depression, heart palpitations, hypertension, and renal calculi. Past Surgical History: Her surgical/procedural history includes back surgery, cholecystectomy, hernia repair, and hysterectomy/bilateral salpingectomy-oophorectomy. Medications: Acetaminophen , Adult Aspirin EC Low Strength 1 Tablet (of 81 mg) Tablet, enteric coated Oral daily, Cholecalciferol 1 Caplet (of 250 mcg ) Capsule Oral daily, Citalopram Hydrobromide 1 Tablet (of 20 mg) Oral daily, Furosemide 1 Tablet (of 20 mg) Oral daily PRN, hydrOXYzine HCl 1 Tablet (of 25 mg) Oral b.i.d. PRN, Ibuprofen 1 Tablet (of 200 mg) Capsule Oral PRN, Loratadine (10 mg) Capsule Oral daily, Losartan Potassium 1 Tablet (of 100 mg) Oral daily, Metoprolol Succinate ER 1 Tablet (of 25 mg) Tablet SR 24 HR Oral daily, Vitamin C 1 Caplet (of 500 mg) Capsule Oral daily Allergies: Lovastatin Social History: Ms. Yoon is . Ms. Yoon has never smoked. She has no history of drinking. Family History: Ms. Yoon's mother at age 73: breast cancer, and type II diabetes. Ms. Yoon's father at age 73: congestive heart failure, and osteoporosis. Ms. Yoon's maternal grandmother is : type II diabetes. Her paternal grandmother is : lung cancer. Vital Signs: Performed on Apr 05, 2021 15:18: 3, 0, 24.64, 1.58 sq.m, 61 in, 95 % (LOW), 54 /min (LOW), 18 /min, 139/70 mm(hg), 97.4 F (LOW), and 130.4 lbs (HIGH). Physical Examination: Constitutional - She does not appear acutely ill, Eyes - Sclerae nonicteric. Conjunctivae clear, ENMT - No lesions noted in the oral cavity, Hematologic/Lymphatic - No cervical, clavicular, or axillary adenopathy, Respiratory - Lungs are clear with good air movement bilaterally, Cardiovascular - Heart rhythm is regular. There is no murmur, gallop, or rub noted, Abdomen - Soft. Liver and spleen are not enlarged. There is no abdominal mass or ascites noted and there is no inguinal adenopathy, Extremities - Slight edema, Neurologic - No focal neurologic deficits noted. Lab/Imaging: CBC shows hemoglobin 11.8 g, white blood cell count 5200, and platelet count 265,000. Comprehensive metabolic profile shows normal renal function with BUN 16 and creatinine 0.5 mg/dL. Bilirubin and liver enzymes are normal. LDH is just slightly elevated at 233/214 U/L. Problem List: 1. Diffuse large B-cell lymphoma, germinal center subtype, involving the rectum, by clinical evaluation stage IE. 2. Hypertension. 3. Degenerative arthritis. 4. Anxiety/depression. Problems Addressed with this Encounter and Plan: Patient with diffuse large B-cell lymphoma, germinal center subtype, involving the rectum, by clinical evaluation stage IE. She has had second opinion evaluation at [facility], and she has been advised to undergo treatment with 4 cycles of R-CHOP chemotherapy followed by consolidation radiation, as indicated. She has started treatment with prednisone 80 mg daily. She will return tomorrow to begin her cycle 1 rituximab 375 mg/m??? by IV infusion. With cycle 1 it is recommended to be administered 7 to 14 days prior to the chemotherapy. She is scheduled to undergo placement of Port-A-Cath venous access device later this week. Her baseline echocardiogram showed normal LV function. I reviewed anticipated side effects with the rituximab, mainly the risk of fever/chills or other symptoms of infusion reaction. She is advised that it may cause a low blood count and it may cause some suppression of her immune system which will put her at increased risk of infection and it will impair her ability to respond to vaccinations. We previously had an extensive discussion as to whether she should have COVID-19 vaccination prior to starting treatment. She opted against it as she did not want to cause any further delays in her treatment. I also reviewed anticipated side effects with the CHOP chemotherapy which may include nausea/vomiting, fatigue, alopecia, low blood counts, and neuropathy, among others. She is advised that the steroid therapy may increase her blood sugar, and I will have that rechecked tomorrow when she comes in for treatment. She initially was given a prescription to continue prednisone 80 mg daily for 7 days, I will have that continued at 40 mg daily until she returns for the CHOP chemotherapy, at which time she also will have a follow-up visit with Dr. Amaral. Signed By: Rob Munoz M.D. <<Signature on File>>
== END 2021-04-05 14:57 | disposition home or self-care (01) ==
LOC: ONCMED 15:00
PROVIDERS: PCP Nurse Practitioner Family; Visit Provider Internal Medicine Medical Oncology
DX: C83.35 Diffuse large B-cell lymphoma, lymph nodes of inguinal region and lower limb (principal); I10 Essential (primary) hypertension; M19.90 Unspecified osteoarthritis, unspecified site; F41.9 Anxiety disorder, unspecified; F32.9 Major depressive disorder, single episode, unspecified; Z79.899 Other long term (current) drug therapy
CPT/HCPCS: 99215

== ENCOUNTER 2021-04-06 08:01 | Outpatient (CLI) | payer MEDICARE, SELFPAY ==
[2021-04-06] MEDS: acetaminophen 325 mg Tablet 650 MG PO (09:25)
[2021-04-06] MEDS: diphenhydrAMINE 50 mg/mL SDV 1mL IVP (09:27)
[2021-04-06] MEDS: sodium chloride 0.9% 500 ML 999 ML IV (09:27)
== END 2021-04-06 08:02 | disposition home or self-care (01) ==
PROVIDERS: PCP Nurse Practitioner Family; Visit Provider Internal Medicine Medical Oncology
DX: Z51.12 Encounter for antineoplastic immunotherapy (principal); C83.35 Diffuse large B-cell lymphoma, lymph nodes of inguinal region and lower limb
CPT/HCPCS: 96375; 96413; 96415; J1200; J7040; J9312

== ENCOUNTER 2021-04-08 07:23 | Day surgery (SDC) | payer MEDICARE, SELFPAY ==
[2021-04-07 13:22] VITALS: BMI 24.5
--- NOTE | 2021-04-08 | SC_ITS ---
WS: [id number] Exam: C-arm FL for CVA [id number] Date/Time of Exam: 04/08/2021 12:00 AM Reason For Exam: Portacath Single limited anterior-posterior C-arm image of the upper left chest is submitted for evaluation. A left subclavian port has been placed and appears to end in the midportion of the SVC in good positi on. No pneumothorax or other obvious complication noted on this limited study.
--- NOTE | 2021-04-08 | SCC_ITS ---
Procedure Done: Portacath placement into the left subclavian vein with intraoperative fluoroscopy interpretation. 3.4 seconds of fluoroscopic guidance, for a cumulative dose of .049 mGy, was provided to Dr. Sims by the radiology department. C-arm images of the chest were saved for the patient's permanent record. [place]
[2021-04-08 07:57] VITALS: BP 184/90; PULSE 63; RESP 18; TEMP 37.1; O2SAT 98
[2021-04-08] MEDS: sodium chloride 0.9% 1,000 ML 30 ML IV (08:14)
--- NOTE | 2021-04-08 08:31 | ANES.PREANE2 ---
Pre-Anesthetic Assessment Pre-Anesthetic Assessment: Height/Weight: Height 1.55 m Weight 58.967 kg Temp Pulse Resp BP Pulse Ox 98.8 F 63 18 184/90 98 04/08/21 07:57 04/08/21 07:57 04/08/21 07:57 04/08/21 07:57 04/08/21 07:57 Proposed Procedure: Operation Date: 04/08/21 09:00 Proposed Procedures p Portacath Placement 23621 C85.10(Not Applicable) - Radhames Sims MD Was Beta Christopher taken within 24 hours: Yes Was Clonidine taken within 24 hours: N/A Last intake: Intake Last Liquid Date 04/07/21 Last Liquid Time 18:00 Last Solid Date 04/07/21 Last Solid Time 18:00 Social: Social History: No tobacco Exam: Pre-Anes Outpt Exam: alert, oriented x 3, clear to auscultation bilaterally and regular rate & rhythm Airway: Submandibular: WNL Cervical ROM: WNL MP: 2 Dentition: Chipped Additional comments: Broken & Missing teeth CV/HEM: CV/HEM: HTN Anesthetic Plan: ASA status: 3 Anesthesia: Anesthesia Evaluation and MAC Risk of > 500 ml blood loss (7ml/kg in children): No Meds/Allergies Current Medications: Current Medications Generic Name Dose Route Start Last Admin Trade Name Freq PRN Reason Stop Dose Admin Sodium Chloride 1,000 mls @ 30 ml s/hr 04/08/21 07:45 04/08/21 08:14 Sodium Chloride 0.9% IV 04/09/21 07:44 30 mls/hr .Q24H MARIAM Administration PFSH Anesthesia PFSH: Medical History Anxiety Arthritis Environmental and seasonal allergies Essential hypertension Surgical History Hx of cholecystectomy Hx of hernia repair Hx of total hysterectomy 1996 Family History Mother Diabetes Cancer ovarian, breast, Grandmother Diabetes Father Congestive heart failure Social History Second hand smoke exposure: No Smoking risk assessment/counseling performed?: No Alcohol intake: never Desire information about alcohol rehabilitation?: No Counseling given: No Desire information about substance/drug rehabilitation?: No Counseling given: No Adopted: No Caregiver/support person: No Lives independently: Yes Household members: none Housing: House Marital status: / service: No Current occupational status: retired History of recent travel: No Current gender identity: Female Female Reproductive History: Date of last menstrual period: 09/03/20 Data Anesthesia Cardiac Studies: No Data to Display
--- NOTE | 2021-04-08 09:37 | W.PM.OPSUD ---
Surgery/Procedure H&P Update DATE OF PROCEDURE: April 08, 2021 DATE H&P PERFORMED: 03/23/21 H&P UPDATE INFORMATION: No changes to prior documentation PREOP DIAGNOSIS: Rectal B-cell lymphoma. PLANNED PROCEDURE: Operation Date: 04/08/21 09:00 Proposed Procedures p Portacath Placement 83862 C85.10(Not Applicable) - Radhames Sims MD
--- NOTE | 2021-04-08 09:38 | PM.OP ---
Operative Report Date of procedure: April 08, 2021 Pre-op Diagnosis: Rectal B-cell lymphoma. Post-op diagnosis: same Procedure Done: Portacath placement into the left subclavian vein with intraoperative fluoroscopy interpretation. Pathology: none sent Surgeon: Radhames Sims Anesthesia: MAC Estimated blood loss (mL): 2 Complications: None. Condition: stable Disposition: same day Procedure: The patient was brought to the Operating Room and was placed in a supine position on the operating room table. A monitored anesthetic was induced. The shoulders were extended by means of a posterior shoulder roll. The anterior surface of the chest and neck were prepped and draped in a sterile fashion. 1% lidocaine was used to anesthetize a small area underneath the left clavicle. The subclavian vein was accessed on the first pass with a needle and syringe as evidenced by the return of dark nonpulsatile blood. The J-wire was passed down the needle and the needle was removed. The C-arm was positioned and showed the wire extending down the vena cava. A site just inferiorly on the chest wall was anesthetized using a combination of 1% lidocaine and 0.5% bupivacaine with 1:200,000 parts of epinephrine. A transverse incision was made and an inferior pocket was created in the subcutaneous layer using cautery in preparation for port placement. The Port-A-Cath tubing was passed from the incision through the subcutaneous layer to the exit point of the J-wire. The tubing was attached to the port and was cut to an appropriate length. The introducer and sheath were passed over the J-wire, and the introducer and J-wire were removed. The Port-A-Cath tubing was passed down the sheath, which was torn away. The C-arm was positioned and showed good placement of the Port-A-Cath tubing tip in the superior vena cava. The port aspirated easily and flushed well with hep flush solution. The port was sewn in place with some interrupted sutures of 3-0 PDS. The transverse incision was closed at the dermis using a single inverted suture of 3-0 Vicryl and the skin was approximated using a running subcuticular suture of 4-0 Vicryl. The small incision under the clavicle at the previous insertion site of the J wire was closed using a single inverted suture of 4-0 Vicryl. Benzoin and Steri-Strips were placed over the incisions and a sterile bandage followed. The patient was taken to the recovery area in stable condition postoperatively. INTRAOPERATIVE FLUOROSCOPY interpretation: FINDINGS: Intraoperative fluoroscopic images of a Port-A-Cath placement were reviewed. An initial image reveals a J-wire entering the left subclavian vein and extending down the vena cava. Subsequent images reveal a Port-A-Cath on that side of the chest with its tubing tip in good location in the superior vena cava. No obvious pneumothorax is identified.
[2021-04-08 09:42] VITALS: BP 123/63; PULSE 58; RESP 16; TEMP 36.2; O2SAT 92
[2021-04-08 09:45] VITALS: BP 127/64; PULSE 61; RESP 17; TEMP 36.5; O2SAT 94
[2021-04-08 09:52] VITALS: BP 138/74; PULSE 58; RESP 18; TEMP 36.2; O2SAT 98
[2021-04-08 10:07] VITALS: BP 157/71; PULSE 59; RESP 18; TEMP 36.7; O2SAT 98
--- NOTE | 2021-04-08 15:34 | ANE.PACU2 ---
Inpatient post-anesthesia follow up: Airway intact: Yes Vital signs: Temperature 98.1 F Pulse Rate 59 Respiratory Rate 18 Blood Pressure 157/71 Pulse Oximetry 98 Oxygen Delivery Me thod Room Air Oxygen Flow Rate Fraction of Inspir ed Oxygen Hydration adequate: Yes Nausea and vomiting: No Pain level: 1 Mental status: Baseline
== END 2021-04-08 10:44 | disposition home or self-care (01) ==
PROVIDERS: PCP Nurse Practitioner Family; Visit Provider Surgery
PROC: (CPT 36571; principal; 2021-04-08 09:00)
DX: C85.10 Unspecified B-cell lymphoma, unspecified site (principal); I10 Essential (primary) hypertension; Z86.010 Personal history of colon polyps; Z90.49 Acquired absence of other specified parts of digestive tract; Z79.82 Long term (current) use of aspirin; Z80.0 Family history of malignant neoplasm of digestive organs
CPT/HCPCS: 36571; 77001; 96365; C1788; J0690; J2704; J3010; J3490; J7030

== ENCOUNTER 2021-04-19 14:10 | Outpatient (CLI) | payer MEDICARE, SELFPAY ==
[2021-04-19 15:50] LABS: Hematocrit 36.9 % (37.0-47.0); Hemoglobin 11.8 g/dL (11.5-15.3); Lymphocytes # 0.2 10^3/uL (0.8-4.8); Lymphocytes % 2.9 %; Mean Corpuscular Hemoglobin 30.8 pg (28.0-34.0); Mean Corpuscular Volume 96.3 fl (81-99); Mean Platelet Volume 9.8 fL (7.4-10.4); Monocytes # 0.2 10^3/uL (0.2-0.9); Monocytes % 2.3 %; Neutrophils % 94.3 %; Nucleated Red Blood Cells % 0 %; Platelet Count 249 10^3/cmm (130-400); Red Blood Count 3.83 10^6/uL (4.1-5.3); Red Cell Distribution Width 15.7 % (12.1-15.1); White Blood Count 6.6 10^3/uL (4.0-10.0)
[2021-04-19 16:21] LABS: Alanine Aminotransferase 14 U/L (0-33); Albumin Level 3.6 g/dL (3.5-5.2); Alkaline Phosphatase 69 IU/L (35-105); Anion Gap 12.3 (5-19); Aspartate Amino Transferase 16 U/L (0-32); Blood Urea Nitrogen 15 mg/dL (8-23); Calcium 8.7 mg/dL (8.5-10.5); Carbon Dioxide 26 mmol/L (22-29); Chloride 103 mmol/L (98-107); Globulin 2.2 g/dL (1.3-4.6); Glucose 117 mg/dL (65-115); Osmolality Calculated 286 mOsm/kg (285-295); Potassium 4.3 mmol/L (3.5-5.1); Sodium 137 mmol/L (136-145); Total Bilirubin 0.5 mg/dL (0.15-1.2); Total Protein 5.8 g/dL (6.6-8.7)
== END 2021-04-19 14:11 | disposition home or self-care (01) ==
LOC: ONCMED 14:12
PROVIDERS: PCP Nurse Practitioner Family; Visit Provider Internal Medicine Hematology & Oncology
DX: C83.39 Diffuse large B-cell lymphoma, extranodal and solid organ sites (principal)
CPT/HCPCS: 36415; 36593; 80053; 85025; 96374

== ENCOUNTER 2021-04-20 06:27 | Outpatient (CLI) | payer MEDICARE, SELFPAY ==
[2021-04-20] MEDS: sodium chloride 0.9% 250 ML 75 ML IV (10:00)
[2021-04-20] MEDS: diphenhydrAMINE 50 mg/mL SDV 1mL 25 MG IV (10:00)
[2021-04-20] MEDS: palonosetron 0.25 mg/5 mL SDV IV (10:04)
[2021-04-20] MEDS: fosaprepitant 150 MG in sodium chloride 0.9% 150 ML 300 MG IV (10:21)
[2021-04-20] MEDS: pegfilgrastim 6 mg/0.6 mL Kit (onpro) SUBCUT (13:00)
--- NOTE | 2021-04-25 19:28 | ONC FU_ITS ---
Dr. 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 She had presented with constipation, change in bowel habit, and weight loss. Her colonoscopy on 02/25/2021 showed a malignant appearing mass in the rectum, biopsy of which was consistent with high-grade large B-cell lymphoma, germinal center immunophenotype. Her CT abdomen/pelvis showed a rectal mass measuring 6 cm with direct extension into the presacral space. There was no associated adenopathy. PET/CT on 03/27/2021 showed FDG avid eccentric rectal wall thickening measuring 3.2 x 47.7 cm, SUV 47.7. There was some prominent cecal uptake which was thought to likely be physiologic. There was no evidence of raman disease or other areas of involvement. She had second opinion evaluation with Dr. Bustillo at [facility] on 03/31/2021. The overall findings were consistent with diffuse large B-cell lymphoma, germinal center phenotype, stage I E. She was recommended to undergo treatment with 4 cycles of R-CHOP chemotherapy followed by consolidation radiation as indicated. She was recommended to begin on immediate steroid therapy with prednisone 80 mg daily and it was also recommended that with her first cycle of treatment the rituximab be administered 7 to 14 days prior to the CHOP chemotherapy., She received her first dose of Rituxan on April 06, 2021 and first dose of chemotherapy with CHOP on April 19, 2021 Came for follow-up, denies any specific complaints, no fever chills, no nausea or vomiting, no diarrhea and her constipation is improving since she is on steroids overall feeling much better with prednisone and also tolerated Rituxan well, now to proceed with systemic chemotherapy with CHOP regimen Medications: Acetaminophen , Adult Aspirin EC Low Strength 1 Tablet (of 81 mg) Tablet, enteric coated Oral daily, Allopurinol 1 Tablet (of 100 mg) Oral daily, Cholecalciferol 1 Caplet (of 250 mcg ) Capsule Oral daily, Citalopram Hydrobromide 1 Tablet (of 20 mg) Oral daily, Loratadine (10 mg) Capsule Oral daily, Losartan Potassium 1 Tablet (of 100 mg) Oral daily, Metoprolol Succinate ER 1 Tablet (of 25 mg) Tablet SR 24 HR Oral daily, Vitamin C 1 Caplet (of 500 mg) Capsule Oral daily Allergies: Lovastatin Review of Systems: Review of Systems is not available for this patient. Vital Signs: Performed on Apr 20, 2021 14:14 Height - 61.00 in Weight - 129.6 lbs (LOW) BSA - 1.57 sq.m BMI - 24.49 Temperature - 98.3 F (LOW) Pulse - 66 /min Respiration - 18 /min BP - 151/70 mm(hg) (HIGH) O2 Sat - 98 % Pain - 7 Fatigue - 0 Performance Status: 0 - Fully active, able to carry on all predisease activities without restrictions. (ECOG) Physical Examination: ENMT - No mouth sores, no thrush, no jaundice no cervical lymphadenopathy, Respiratory - Lungs are clear to auscultation, Cardiovascular - Regular rate and rhythm of heart, Abdomen - Soft, bowel sounds present, Extremities - No visible edema. Lab/Imaging: Most recent lab results are not available for this patient. Impression: 1. Diffuse large B-cell lymphoma, germinal center subtype, involving the rectum, by clinical evaluation stage IE. 2. Hypertension. 3. Degenerative arthritis. 4. Anxiety/depression. Started on Prednisone 80 mg p.o. daily For 1 week Then decrease to 40 mg because of progressive constipation due to lymphoma involving the rectum and R-CHOP on April 06, 2021, patient received rituximab alone on April 06, 2021 and chemotherapy was started on April 19, 2021, Planning is to give her 4 cycles of R-CHOP followed by radiation therapy to the involved field Plan: .Discussed with patient regarding her labs white blood count 6.6 hemoglobin 11.8 hematocrit 36.9 platelets 249,000 CMP within normal limits Clinically, patient is doing well with no new signs symptoms in fact her constipation is improving since she is on prednisone and also received a dose of Rituxan about 2 weeks ago, today we will proceed with her first cycle of CHOP minus prednisone with this cycle only as patient has been taking prednisone initially 80 mg p.o. daily for 1 week now 40 mg p.o. daily and she will stop taking prednisone in 4 days. She will return to clinic in 1 week with CBC CMP Signed By: Ana Amaral M.D. <<Signature on File>>
== END 2021-04-20 06:28 | disposition home or self-care (01) ==
LOC: ONCMED 06:27
PROVIDERS: PCP Nurse Practitioner Family; Visit Provider Internal Medicine Hematology & Oncology
DX: Z51.12 Encounter for antineoplastic immunotherapy (principal); Z51.11 Encounter for antineoplastic chemotherapy; C83.39 Diffuse large B-cell lymphoma, extranodal and solid organ sites; I10 Essential (primary) hypertension; M19.90 Unspecified osteoarthritis, unspecified site; F41.9 Anxiety disorder, unspecified; F32.9 Major depressive disorder, single episode, unspecified; Z79.52 Long term (current) use of systemic steroids; Z79.899 Other long term (current) drug therapy
CPT/HCPCS: 96367; 96372; 96375; 96377; 96411; 96413; 96417; 99215; J1100; J1200; J1453; J2469; J2505; J7040; J7050; J9000; J9070; J9370

== ENCOUNTER 2021-05-11 06:28 | Outpatient (RCR) | payer MEDICARE, SELFPAY ==
[2021-04-26] MEDS: alteplase 1 mg/mL SDV 2 mL 2 MG IV (14:55)
[2021-04-26 15:16] LABS: Hematocrit 34.3 % (37.0-47.0); Hemoglobin 11.1 g/dL (11.5-15.3); Lymphocytes # 0.1 10^3/uL (0.8-4.8); Mean Corpuscular HGB Conc 32.4 g/dL (30.0-36.0); Mean Corpuscular Hemoglobin 30.7 pg (28.0-34.0); Mean Corpuscular Volume 94.8 fl (81-99); Mean Platelet Volume 10.4 fL (7.4-10.4); Nucleated Red Blood Cells % 0 %; Platelet Count 103 10^3/cmm (130-400); Red Blood Count 3.62 10^6/uL (4.1-5.3); Red Cell Distribution Width 14.3 % (12.1-15.1)
[2021-04-26 15:35] LABS: Alanine Aminotransferase 19 U/L (0-33); Albumin Level 3.7 g/dL (3.5-5.2); Alkaline Phosphatase 76 IU/L (35-105); Anion Gap 15.9 (5-19); Aspartate Amino Transferase 18 U/L (0-32); Blood Urea Nitrogen 13 mg/dL (8-23); Calcium 8.6 mg/dL (8.5-10.5); Carbon Dioxide 24 mmol/L (22-29); Chloride 101 mmol/L (98-107); Glucose 132 mg/dL (65-115); Osmolality Calculated 286 mOsm/kg (285-295); Potassium 3.9 mmol/L (3.5-5.1); Sodium 137 mmol/L (136-145); Total Bilirubin 0.4 mg/dL (0.15-1.2); Total Protein 5.7 g/dL (6.6-8.7)
[2021-04-26 15:39] LABS: Neutrophils # 0.08 10^3/uL (1.8-7.7); White Blood Count 0.2 10^3/uL (4.0-10.0)
[2021-04-26 15:40] LABS: Slide Review Slide Review Perform
[2021-04-27] MEDS: levofloxacin-dextrose 5 % 500 MG/100 ML PREMIX 100 MG IV (09:45)
[2021-05-04] MEDS: alteplase 1 mg/mL SDV 2 mL 2 MG IV (10:03)
[2021-05-04 10:15] LABS: Basophils # 0.1 10^3/uL (0.0-0.1); Basophils % 0.5 %; Hematocrit 35.9 % (37.0-47.0); Hemoglobin 12.1 g/dL (11.5-15.3); Lymphocytes # 0.2 10^3/uL (0.8-4.8); Lymphocytes % 1.3 %; Mean Corpuscular HGB Conc 33.7 g/dL (30.0-36.0); Mean Corpuscular Hemoglobin 31.3 pg (28.0-34.0); Mean Platelet Volume 9.3 fL (7.4-10.4); Monocytes # 0.3 10^3/uL (0.2-0.9); Monocytes % 2.4 %; Neutrophils # 11.64 10^3/uL (1.8-7.7); Neutrophils % 90.4 %; Nucleated Red Blood Cells % 0 %; Platelet Count 248 10^3/cmm (130-400); Red Blood Count 3.86 10^6/uL (4.1-5.3); Red Cell Distribution Width 15.5 % (12.1-15.1); White Blood Count 12.9 10^3/uL (4.0-10.0)
[2021-05-04 10:39] LABS: Slide Review Slide Review Perform
[2021-05-04 10:40] LABS: Alanine Aminotransferase 18 U/L (0-33); Albumin Level 3.7 g/dL (3.5-5.2); Alkaline Phosphatase 69 IU/L (35-105); Aspartate Amino Transferase 19 U/L (0-32); Blood Urea Nitrogen 11 mg/dL (8-23); Calcium 8.8 mg/dL (8.5-10.5); Carbon Dioxide 27 mmol/L (22-29); Chloride 98 mmol/L (98-107); Globulin 2.1 g/dL (1.3-4.6); Glucose 116 mg/dL (65-115); Osmolality Calculated 278 mOsm/kg (285-295); Sodium 134 mmol/L (136-145); Total Bilirubin 0.3 mg/dL (0.15-1.2); Total Protein 5.8 g/dL (6.6-8.7)
--- NOTE | 2021-05-10 14:47 | ONC FU_ITS ---
[facility] Patient Note Patient: Deyanira Yoon Unit #: [id number]: 1945 Dictated By: Oliva EnriquezDate of Visit: Apr 27, 2021 Onc MED Follow-Up/Prog Note Chief Complaint: Lymphoma. 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 She had presented with constipation, change in bowel habit, and weight loss. Her colonoscopy on 02/25/2021 showed a malignant appearing mass in the rectum, biopsy of which was consistent with high-grade large B-cell lymphoma, germinal center immunophenotype. Her CT abdomen/pelvis showed a rectal mass measuring 6 cm with direct extension into the presacral space. There was no associated adenopathy. PET/CT on 03/27/2021 showed FDG avid eccentric rectal wall thickening measuring 3.2 x 47.7 cm, SUV 47.7. There was some prominent cecal uptake which was thought to likely be physiologic. There was no evidence of raman disease or other areas of involvement. She had second opinion evaluation with Dr. Bustillo at [facility] on 03/31/2021. The overall findings were consistent with diffuse large B-cell lymphoma, germinal center phenotype, stage I E. She was recommended to undergo treatment with 4 cycles of R-CHOP chemotherapy followed by consolidation radiation as indicated. She was recommended to begin on immediate steroid therapy with prednisone 80 mg daily and it was also recommended that with her first cycle of treatment the rituximab be administered 7 to 14 days prior to the CHOP chemotherapy. She received her first dose of Rituxan on April 06, 2021 and first dose of chemotherapy with CHOP on April 19, 2021. Ms. Yoon is here today for follow-up. She completed her first cycle of R-CHOP on 04/20/2021. She did receive Neulasta support. She did have Rituxan on 04/06/2021. She did have a placement of a left subclavian venous access device with a Port-A-Cath per Dr. Sims on April 08, 2021. Ms. Yoon tolerated her first cycle of chemotherapy well. She states that her eating is down some due to taste concerns. She states she does not have much taste in her appetite is minimal. She states however her bowels are moving much better already. She states she had a large bowel movement on Monday that was not painful and was relatively soft. She denies any nausea or vomiting. She denies any vision changes, headaches. She states she has not had any fever or chills. She denies any signs of infection. She states her breathing is the same and does not have any new shortness of breath orthopnea. She denies any chest pain or palpitations. She denies any diarrhea. She states her energy is marginal but she feels overall it is better. She states she feels some better overall. Her ECOG is 1. Past Medical History: Anxiety Arthritis Depression Heart palpitations Hypertension Renal calculi Past Surgical History: Back surgery Cholecystectomy Hernia repair Hysterectomy/bilateral salpingectomy-oophorectomy Allergies: Lovastatin Medications: Acetaminophen Adult Aspirin EC Low Strength 1 Tablet (of 81 mg) Tablet, enteric coated Oral daily Allopurinol 1 Tablet (of 300 mg) Oral daily Cholecalciferol 1 Caplet (of 250 mcg ) Capsule Oral daily Citalopram Hydrobromide 1 Tablet (of 20 mg) Oral daily Furosemide 1 Tablet (of 20 mg) Oral daily hydrOXYzine Pamoate 1 Tablet (of 25 mg) Capsule Oral daily PRN Loratadine (10 mg) Capsule Oral daily Losartan Potassium 1 Tablet (of 100 mg) Oral daily Metoprolol Succinate ER 1 Tablet (of 25 mg) Tablet SR 24 HR Oral daily predniSONE 2 Tablet (of 20 mg) Oral daily Vitamin C 1 Caplet (of 500 mg) Capsule Oral daily Family History: Ms. Yoon's mother at age 73: breast cancer, and type II diabetes. Ms. Yoon's father at age 73: congestive heart failure, and osteoporosis. Ms. Yoon's maternal grandmother is : type II diabetes. Her paternal grandmother is : lung cancer. Social History: Ms. Yoon is . Ms. Yoon has never smoked. She has no history of drinking. Review Of Symptoms: <See Above> Vital Signs: Performed on Apr 27, 2021 08:43 Height - 61.00 in Weight - 121.2 lbs (LOW) BSA - 1.53 sq.m BMI - 22.90 Temperature - 97.9 F (LOW) Pulse - 66 /min Respiration - 18 /min BP - 129/72 mm(hg) O2 Sat - 99 % Pain - 4 Fatigue - 7,1 - No physically strenuous activity, but ambulatory and able to carry out light or sedentary work (e.g. office work, light house work). (ECOG) Physical Examination: Constitutional Alert, oriented, no acute distress. Skin pink, warm and dry. Head Normocephalic; atraumatic. Eyes Conjunctivae and sclerae are clear and without icterus. Pupils are reactive and equal. Neck Supple without masses or thyromegaly. No jugular venous distension. Hematologic/Lymphatic No petechiae or purpura. No tender or palpable lymph nodes in the cervical or supraclavicular areas. Respiratory Lungs are clear to auscultation without rhonchi or wheezing. Cardiovascular Regular rate and rhythm of heart without murmurs,clicks, gallops or rubs. Chest Chest is symmetric without chest wall deformities. Left chest wall venous access device insertion site is unremarkable. Abdomen Non-tender, non-distended, no masses or ascites. Good bowel sounds noted in all quads. No guarding or rebound tenderness. No pulsatile masses. Back/Spine Non-tender to palpation. Extremities No visible deformities, no cyanosis, clubbing or edema. Musculoskeletal No tenderness or swelling, normal range of motion without obvious weakness. Integumentary No rashes or lesions. Neurologic No sensory or motor deficits, normal cerebellar function, normal gait. Psychiatric Alert and oriented times three. Coherent speech. Verbalizes understanding of our discussions today. Laboratory: Impression: 1. Diffuse large B-cell lymphoma, germinal center subtype, involving the rectum, by clinical evaluation stage IE. 2. Hypertension. 3. Degenerative arthritis. 4. Anxiety/depression. Plan/Problems Addressed at this Visit: 1. Diffuse large B-cell lymphoma, germinal center subtype, involving the rectum, by clinical evaluation stage IE. She has had second opinion evaluation at [facility], and she has been advised to undergo treatment with 4 cycles of R-CHOP chemotherapy followed by consolidation radiation, as indicated. She has started treatment with prednisone 80 mg daily on 04/05/2021. She began cycle 1 rituximab 375 mg/m??? by IV infusion on 04/06/2021. With cycle 1 it is recommended to be administered 7 to 14 days prior to the chemotherapy. She began her first dose of CHOP on 04/20/2021. She was supported with Neulasta. Her baseline echocardiogram showed normal LV function. She had a left venous access device placed on 04/08/[address] Sims. A. April 26, 2021 labs reviewed in detail discussed with Ms. Yoon and a copy was given to her. WBC 0.2 hemoglobin 11.1 platelets 103,000, ANC is 80. Potassium 3.9 random glucose 132 creatinine 0.4 LFTs are normal. Her weight is down 8 pounds to 121.2. B. Given her severe neutropenia and Neulasta support we will start her with levofloxacin 500 mg IV today. I did offer her hydration but she did not feel that she needed at this time. C. Tomorrow she will start Levaquin 750 mg daily for 6 days given her severe neutropenia. D. She is been advised to report any signs or symptoms of infection to include fever 100.4 or greater, productive cough, discolored sinus drainage, UTI symptoms or any concerns. E. We will plan to recheck her CBC CMP in 1 week. F. We will plan to see her back in 2 weeks with CBC CMP LDH for consideration of cycle 2 R-CHOP. G. Mrs. Yoon has been instructed to contact us in the interim should questions or problems arise. H. Total time spent face to face in regards of her plan of care review of labs and answering questions as well as previsit chart review and post visit documentation was 60 minutes. Signed By: Oliva Enriquez-, [facility] Ana Amaral MD <<Signature on File>>
[2021-05-11 08:42] LABS: Basophils # 0.1 10^3/uL (0.0-0.1); Basophils % 1.1 %; Eosinophils % 0.3 %; Hematocrit 33.8 % (37.0-47.0); Hemoglobin 11.3 g/dL (11.5-15.3); Lymphocytes # 0.7 10^3/uL (0.8-4.8); Lymphocytes % 9.2 %; Mean Corpuscular HGB Conc 33.4 g/dL (30.0-36.0); Mean Corpuscular Hemoglobin 31.7 pg (28.0-34.0); Mean Corpuscular Volume 94.9 fl (81-99); Monocytes # 0.7 10^3/uL (0.2-0.9); Monocytes % 9.6 %; Neutrophils # 5.86 10^3/uL (1.8-7.7); Neutrophils % 79.1 %; Nucleated Red Blood Cells % 0 %; Platelet Count 330 10^3/cmm (130-400); Red Blood Count 3.56 10^6/uL (4.1-5.3); Red Cell Distribution Width 15.7 % (12.1-15.1); White Blood Count 7.4 10^3/uL (4.0-10.0)
[2021-05-11 09:13] LABS: Alanine Aminotransferase 16 U/L (0-33); Albumin Level 3.4 g/dL (3.5-5.2); Alkaline Phosphatase 53 IU/L (35-105); Anion Gap 15.3 (5-19); Aspartate Amino Transferase 15 U/L (0-32); Blood Urea Nitrogen 9 mg/dL (8-23); Calcium 8.5 mg/dL (8.5-10.5); Carbon Dioxide 23 mmol/L (22-29); Chloride 104 mmol/L (98-107); Globulin 1.6 g/dL (1.3-4.6); Glucose 76 mg/dL (65-115); Lactate Dehydrogenase 219 U/L (135-214); Osmolality Calculated 283 mOsm/kg (285-295); Potassium 4.3 mmol/L (3.5-5.1); Sodium 138 mmol/L (136-145); Total Bilirubin 0.3 mg/dL (0.15-1.2)
[2021-05-11] MEDS: sodium chloride 0.9% 500 ML 999 ML IV (10:50)
[2021-05-11] MEDS: diphenhydrAMINE 50 mg/mL SDV 1mL 25 MG IV (10:50)
[2021-05-11] MEDS: sodium chloride 0.9% 250 ML 75 ML IV (10:50)
[2021-05-11] MEDS: acetaminophen 325 mg Tablet 650 MG PO (10:50)
[2021-05-11] MEDS: fosaprepitant 150 MG in sodium chloride 0.9% 150 ML 300 MG IV (14:15)
[2021-05-11 14:24] LABS: Add Urine Microscopic? NO; Charge for UA Resulting for Rev
[2021-05-11 14:29] LABS: Bilirubin Urine Neg (Negative); Blood Urine Neg (Negative); Glucose Urine UA Norm (Normal); Ketones Urine Negative (Negative); Leukocyte Esterase Urine Negative (Negative); Nitrate Urine Negative (Negative); Protein Urine Neg (Negative); Specific Gravity, Urine 1.005 (1.005-1.030); Urine Appearance Clear (CLEAR); Urine Color Yellow (Yellow); Urobilinogen Urine Norm (Negative); pH Urine 7 (5-7)
[2021-05-11] MEDS: palonosetron 0.25 mg/5 mL SDV IV (14:45)
--- NOTE | 2021-05-11 15:36 | ONC FU_ITS ---
Dr. 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 She had presented with constipation, change in bowel habit, and weight loss. Her colonoscopy on 02/25/2021 showed a malignant appearing mass in the rectum, biopsy of which was consistent with high-grade large B-cell lymphoma, germinal center immunophenotype. Her CT abdomen/pelvis showed a rectal mass measuring 6 cm with direct extension into the presacral space. There was no associated adenopathy. PET/CT on 03/27/2021 showed FDG avid eccentric rectal wall thickening measuring 3.2 x 47.7 cm, SUV 47.7. There was some prominent cecal uptake which was thought to likely be physiologic. There was no evidence of raman disease or other areas of involvement. She had second opinion evaluation with Dr. Bustillo at [facility] on 03/31/2021. The overall findings were consistent with diffuse large B-cell lymphoma, germinal center phenotype, stage I E. She was recommended to undergo treatment with 4 cycles of R-CHOP chemotherapy followed by consolidation radiation as indicated. She was recommended to begin on immediate steroid therapy with prednisone 80 mg daily and it was also recommended that with her first cycle of treatment the rituximab be administered 7 to 14 days prior to the CHOP chemotherapy. She received her first dose of Rituxan on April 06, 2021 and . She completed her first cycle of R-CHOP on 04/20/2021. She did receive Neulasta support. Came for follow-up, denies any specific complaint except generalized weakness and fatigue as per patient 3 to 4 days after chemotherapy, she did well up generalized weakness and fatigue and then progressive bone pain in the hips, ribs and chest wall and then the back felt like something expanding in the bones, it was self-limiting and about 1 week later it improved. Patient was also having some mild nausea but responded well to antiemetics and also developed constipation 3 to 4 days, finally responded to Senokot. Also noted mouth sores especially in the right side, as per patient she has bad dentition may be rubbing on her inner cheek and today she denies any fever chills denies any nausea or vomiting denies any bony pain denies any night sweats, denies any melena hematochezia or hemoptysis or hematemesis or night sweats or peripheral neuropathy. Medications: Acetaminophen , Adult Aspirin EC Low Strength 1 Tablet (of 81 mg) Tablet, enteric coated Oral daily, Allopurinol 1 Tablet (of 300 mg) Oral daily, Cholecalciferol 1 Caplet (of 250 mcg ) Capsule Oral daily, Citalopram Hydrobromide 1 Tablet (of 20 mg) Oral daily, hydrOXYzine Pamoate 1 Tablet (of 25 mg) Capsule Oral daily PRN, Loratadine (10 mg) Capsule Oral daily, Losartan Potassium 1 Tablet (of 100 mg) Oral daily, Metoprolol Succinate ER 1 Tablet (of 25 mg) Tablet SR 24 HR Oral daily, predniSONE 2 Tablet (of 20 mg) Oral daily PRN, Vitamin C 1 Caplet (of 500 mg) Capsule Oral daily Allergies: Lovastatin Review of Systems: Review of Systems is not available for this patient. Vital Signs: Performed on May 11, 2021 15:02 Height - 61.00 in Weight - 115.8 lbs (LOW) BSA - 1.50 sq.m BMI - 21.88 Temperature - 98.4 F Pulse - 63 /min Respiration - 16 /min BP - 150/75 mm(hg) (HIGH) O2 Sat - 98 % Pain - 5 Fatigue - 4 Performance Status: 1 - No physically strenuous activity, but ambulatory and able to carry out light or sedentary work (e.g. office work, light house work). (ECOG) Physical Examination: ENMT - No mouth sores, no thrush, no jaundice, no cervical lymphadenopathy, Respiratory - Lungs are clear to auscultation, Cardiovascular - Regular rate and rhythm of heart, Abdomen - Soft, bowel sounds present, Extremities - No visible edema. Lab/Imaging: Most recent lab results are not available for this patient. Impression: 1. Diffuse large B-cell lymphoma, germinal center subtype, involving the rectum, by clinical evaluation stage IE. 2. Hypertension. 3. Degenerative arthritis. 4. Anxiety/depression. Plan: Discussed with patient regarding her labs white blood count 7.4 hemoglobin 11.3 hematocrit 33.8 platelets 330,000 CMP within normal limits LDH 219 Clinically, patient doing reasonably well, will proceed with cycle #2/4 treatment with R-CHOP with Neulasta today and then she will return to clinic in 2 weeks with CBC CMP Patient was advised that her posttreatment symptoms could be due to bone marrow expansion due to Neulasta, she was advised to try Claritin or take Percocet on as-needed basis and maintain good hydration and also advised to maintain good oral hygiene. Signed By: Ana Amaral M.D. <<Signature on File>>
[2021-05-11] MEDS: pegfilgrastim 6 mg/0.6 mL Kit (onpro) SUBCUT (16:45)
== END 2021-05-11 23:59 | disposition home or self-care (01) ==
LOC: ONCMED 06:28
PROVIDERS: PCP Nurse Practitioner Family; Visit Provider Internal Medicine Hematology & Oncology
DX: Z51.12 Encounter for antineoplastic immunotherapy (principal); Z51.11 Encounter for antineoplastic chemotherapy; C83.39 Diffuse large B-cell lymphoma, extranodal and solid organ sites; I10 Essential (primary) hypertension; M19.90 Unspecified osteoarthritis, unspecified site; F41.9 Anxiety disorder, unspecified; F32.9 Major depressive disorder, single episode, unspecified; Z79.899 Other long term (current) drug therapy
CPT/HCPCS: 36415; 36593; 80053; 81003; 83615; 85025; 96365; 96367; 96374; 96375; 96377; 96411; 96413; 96415; 96417; 99215; J1100; J1200; J1453; J1956; J2469; J2505; J2997; J7040; J7050; J9000; J9070; J9312; J9370

== ENCOUNTER 2021-06-07 06:23 | Outpatient (RCR) | payer MEDICARE, SELFPAY ==
[2021-05-18 14:20] LABS: Eosinophils % 4.5 %; Hematocrit 29.1 % (37.0-47.0); Hemoglobin 9.9 g/dL (11.5-15.3); Lymphocytes # 0.1 10^3/uL (0.8-4.8); Lymphocytes % 27.3 %; Mean Corpuscular Volume 94.2 fl (81-99); Mean Platelet Volume 10.2 fL (7.4-10.4); Monocytes # 0.1 10^3/uL (0.2-0.9); Monocytes % 27.3 %; Neutrophils % 40.9 %; Nucleated Red Blood Cells % 0 %; Platelet Count 108 10^3/cmm (130-400); Red Blood Count 3.09 10^6/uL (4.1-5.3); Red Cell Distribution Width 14.7 % (12.1-15.1)
[2021-05-18 14:48] LABS: Alanine Aminotransferase 22 U/L (0-33); Albumin Level 3.6 g/dL (3.5-5.2); Alkaline Phosphatase 66 IU/L (35-105); Anion Gap 16.1 (5-19); Aspartate Amino Transferase 14 U/L (0-32); Blood Urea Nitrogen 15 mg/dL (8-23); Calcium 8.4 mg/dL (8.5-10.5); Carbon Dioxide 23 mmol/L (22-29); Chloride 99 mmol/L (98-107); Globulin 1.6 g/dL (1.3-4.6); Glucose 105 mg/dL (65-115); Osmolality Calculated 279 mOsm/kg (285-295); Potassium 4.1 mmol/L (3.5-5.1); Sodium 134 mmol/L (136-145); Total Bilirubin 0.4 mg/dL (0.15-1.2); Total Protein 5.2 g/dL (6.6-8.7)
[2021-05-18 14:49] LABS: Slide Review Slide Review Perform
[2021-05-18 14:51] LABS: Neutrophils # 0.09 10^3/uL (1.8-7.7); White Blood Count 0.2 10^3/uL (4.0-10.0)
[2021-05-20 09:33] LABS: Basophils # 0.1 10^3/uL (0.0-0.1); Basophils % 1.7 %; Eosinophils % 0.2 %; Hematocrit 29.6 % (37.0-47.0); Hemoglobin 9.8 g/dL (11.5-15.3); Lymphocytes # 0.2 10^3/uL (0.8-4.8); Lymphocytes % 3.6 %; Mean Corpuscular HGB Conc 33.1 g/dL (30.0-36.0); Mean Corpuscular Hemoglobin 31.4 pg (28.0-34.0); Mean Corpuscular Volume 94.9 fl (81-99); Mean Platelet Volume 10.1 fL (7.4-10.4); Monocytes # 0.5 10^3/uL (0.2-0.9); Monocytes % 10.1 %; Neutrophils # 4.09 10^3/uL (1.8-7.7); Neutrophils % 77.7 %; Nucleated Red Blood Cells % 0.4 %; Platelet Count 134 10^3/cmm (130-400); Red Blood Count 3.12 10^6/uL (4.1-5.3); Red Cell Distribution Width 14.9 % (12.1-15.1); White Blood Count 5.3 10^3/uL (4.0-10.0)
[2021-05-20 10:18] LABS: Slide Review Slide Review Perform
--- NOTE | 2021-05-21 08:42 | ONC FU_ITS ---
Dr. 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 She had presented with constipation, change in bowel habit, and weight loss. Her colonoscopy on 02/25/2021 showed a malignant appearing mass in the rectum, biopsy of which was consistent with high-grade large B-cell lymphoma, germinal center immunophenotype. Her CT abdomen/pelvis showed a rectal mass measuring 6 cm with direct extension into the presacral space. There was no associated adenopathy. PET/CT on 03/27/2021 showed FDG avid eccentric rectal wall thickening measuring 3.2 x 47.7 cm, SUV 47.7. There was some prominent cecal uptake which was thought to likely be physiologic. There was no evidence of raman disease or other areas of involvement. She had second opinion evaluation with Dr. Bustillo at [facility] on 03/31/2021. The overall findings were consistent with diffuse large B-cell lymphoma, germinal center phenotype, stage I E. She was recommended to undergo treatment with 4 cycles of R-CHOP chemotherapy followed by consolidation radiation as indicated. She was recommended to begin on immediate steroid therapy with prednisone 80 mg daily and it was also recommended that with her first cycle of treatment the rituximab be administered 7 to 14 days prior to the CHOP chemotherapy. She received her first dose of Rituxan on April 06, 2021 and . She completed her first cycle of R-CHOP on 04/20/2021. She did receive Neulasta support. Came for follow-up, denies any specific complaint fever chills, no nausea or vomiting, no diarrhea or constipation, no abdominal pain, no jaundice, no peripheral neuropathy, no mouth sores, tolerating R-CHOP well otherwise. Her labs checked on May 18, 2021 showed severe neutropenia/leukopenia her white blood count was 200, she was started on Levaquin as prophylaxis, but patient never spiked any fever Medications: Acetaminophen , Adult Aspirin EC Low Strength 1 Tablet (of 81 mg) Tablet, enteric coated Oral daily, Citalopram Hydrobromide 1 Tablet (of 10 mg) Oral daily, [facility] Tablet Oral PRN, Levaquin 1 Tablet (of 500 mg) Oral daily for 7 days, Loratadine (10 mg) Capsule Oral daily, Losartan Potassium 1 Tablet (of 100 mg) Oral daily, Metoprolol Succinate ER 1 Tablet (of 25 mg) Tablet SR 24 HR Oral daily, predniSONE 3 Tablet (of 20 mg) Oral daily PRN, Vitamin C 1 Caplet (of 500 mg) Capsule Oral daily Allergies: Lovastatin Review of Systems: Review of Systems is not available for this patient. Vital Signs: Performed on May 20, 2021 09:39 Height - 61.00 in Temperature - 98.4 F Pulse - 71 /min Respiration - 16 /min BP - 124/70 mm(hg) O2 Sat - 96 % Pain - 9 Fatigue - 5 Performance Status: 1 - No physically strenuous activity, but ambulatory and able to carry out light or sedentary work (e.g. office work, light house work). (ECOG) Physical Examination: ENMT - No mouth sores, no thrush, no jaundice, no cervical lymphadenopathy, Respiratory - Lungs are clear to auscultation, Cardiovascular - Regular rate and rhythm of heart, Abdomen - Soft, bowel sounds present, Extremities - No visible edema. Lab/Imaging: Most recent lab results are not available for this patient. Impression: 1. Diffuse large B-cell lymphoma, germinal center subtype, involving the rectum, by clinical evaluation stage IE. 2. Hypertension. 3. Degenerative arthritis. 4. Anxiety/depression. Plan: Discussed with patient regarding her labs white blood count 5.3 hemoglobin 9.8 hematocrit 29.6 platelets 134,000 ANC 4090 Clinically, patient is doing well with no new signs symptom her repeat CBC done today shows resolution of severe neutropenia/leukopenia, at this point we will discontinue her Levaquin. Patient is due for her next chemotherapy on June 01, 2021 but patient is requesting if she can take her next cycle after [place] so she will return to clinic on June 07, 2021 with CBC CMP for cycle #3/4 R-CHOP. As far as anemia is a concern, hemoglobin is stable, etiology could be multifactorial, will check iron studies B12 folic acid, if needed will supplement otherwise monitor. Signed By: Ana Amaral M.D. <<Signature on File>>
[2021-06-07] MEDS: alteplase 1 mg/mL SDV 2 mL 2 MG INTRACATH (08:35)
[2021-06-07 08:41] LABS: Basophils % 0.1 %; Eosinophils % 0.3 %; Hematocrit 32.6 % (37.0-47.0); Hemoglobin 10.6 g/dL (11.5-15.3); Lymphocytes # 0.6 10^3/uL (0.8-4.8); Mean Corpuscular HGB Conc 32.5 g/dL (30.0-36.0); Mean Corpuscular Hemoglobin 31.9 pg (28.0-34.0); Mean Corpuscular Volume 98.2 fl (81-99); Mean Platelet Volume 9.3 fL (7.4-10.4); Monocytes # 0.9 10^3/uL (0.2-0.9); Monocytes % 7.9 %; Neutrophils # 10.07 10^3/uL (1.8-7.7); Neutrophils % 86.1 %; Nucleated Red Blood Cells % 0 %; Platelet Count 232 10^3/cmm (130-400); Red Blood Count 3.32 10^6/uL (4.1-5.3); Red Cell Distribution Width 17.3 % (12.1-15.1); White Blood Count 11.7 10^3/uL (4.0-10.0)
[2021-06-07 09:02] LABS: Alanine Aminotransferase 15 U/L (0-33); Albumin Level 3.4 g/dL (3.5-5.2); Alkaline Phosphatase 62 IU/L (35-105); Anion Gap 11.6 (5-19); Aspartate Amino Transferase 15 U/L (0-32); Blood Urea Nitrogen 15 mg/dL (8-23); Calcium 8.3 mg/dL (8.5-10.5); Carbon Dioxide 26 mmol/L (22-29); Chloride 104 mmol/L (98-107); Globulin 1.8 g/dL (1.3-4.6); Glucose 84 mg/dL (65-115); Osmolality Calculated 286 mOsm/kg (285-295); Potassium 3.6 mmol/L (3.5-5.1); Sodium 138 mmol/L (136-145); Total Bilirubin 0.4 mg/dL (0.15-1.2); Total Protein 5.2 g/dL (6.6-8.7)
[2021-06-07] MEDS: diphenhydrAMINE 50 mg/mL SDV 1mL 25 MG IV (10:28)
[2021-06-07] MEDS: sodium chloride 0.9% 1,000 ML 999 ML IV (10:30)
[2021-06-07] MEDS: acetaminophen 325 mg Tablet 650 MG PO (10:30)
[2021-06-07] MEDS: sodium chloride 0.9% 500 ML 999 ML IV (10:30)
[2021-06-07] MEDS: palonosetron 0.25 mg/5 mL SDV IV (10:35)
[2021-06-07] MEDS: fosaprepitant 150 MG in sodium chloride 0.9% 150 ML 300 MG IV (11:00)
--- NOTE | 2021-06-07 15:35 | ONC FU_ITS ---
Dr. 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 She had presented with constipation, change in bowel habit, and weight loss. Her colonoscopy on 02/25/2021 showed a malignant appearing mass in the rectum, biopsy of which was consistent with high-grade large B-cell lymphoma, germinal center immunophenotype. Her CT abdomen/pelvis showed a rectal mass measuring 6 cm with direct extension into the presacral space. There was no associated adenopathy. PET/CT on 03/27/2021 showed FDG avid eccentric rectal wall thickening measuring 3.2 x 47.7 cm, SUV 47.7. There was some prominent cecal uptake which was thought to likely be physiologic. There was no evidence of raman disease or other areas of involvement. She had second opinion evaluation with Dr. Bustillo at [facility] on 03/31/2021. The overall findings were consistent with diffuse large B-cell lymphoma, germinal center phenotype, stage I E. She was recommended to undergo treatment with 4 cycles of R-CHOP chemotherapy followed by consolidation radiation as indicated. She was recommended to begin on immediate steroid therapy with prednisone 80 mg daily and it was also recommended that with her first cycle of treatment the rituximab be administered 7 to 14 days prior to the CHOP chemotherapy. She received her first dose of Rituxan on April 06, 2021 and . She completed her first cycle of R-CHOP on 04/20/2021. She did receive Neulasta support. Came for follow-up, denies any specific complaints, no fever chills, no nausea or vomiting, no diarrhea, as per patient her constipation is gone, now the best ever daily bowel movement since November 2020. No new bony pains, no mouth sores, no thrush, no jaundice, tolerating systemic therapy with R-CHOP well Medications: Acetaminophen , Adult Aspirin EC Low Strength 1 Tablet (of 81 mg) Tablet, enteric coated Oral daily, Citalopram Hydrobromide 1 Tablet (of 10 mg) Oral daily, [facility] Senna Tablet Oral PRN, Levaquin 1 Tablet (of 500 mg) Oral daily for 7 days, Loratadine (10 mg) Capsule Oral daily, Losartan Potassium 1 Tablet (of 100 mg) Oral daily, Metoprolol Succinate ER 1 Tablet (of 25 mg) Tablet SR 24 HR Oral daily, predniSONE 3 Tablet (of 20 mg) Oral daily PRN, Vitamin C 1 Caplet (of 500 mg) Capsule Oral daily Allergies: Lovastatin Review of Systems: Review of Systems is not available for this patient. Vital Signs: Performed on Jun 07, 2021 09:40 Height - 61.00 in Weight - 125.8 lbs (HIGH) BSA - 1.55 sq.m BMI - 23.77 Temperature - 97.8 F (LOW) Pulse - 62 /min Respiration - 18 /min BP - 142/72 mm(hg) (HIGH) O2 Sat - 98 % Pain - 5 Fatigue - 7 Performance Status: 0 - Fully active, able to carry on all predisease activities without restrictions. (ECOG) Physical Examination: ENMT - No mouth, no thrush, no jaundice, Respiratory - Lungs are clear to auscultation, Cardiovascular - Regular rate and rhythm of heart, Abdomen - Soft, bowel sounds present, Extremities - 1+ edema bilaterally. Lab/Imaging: Most recent lab results are not available for this patient. Impression: 1. Diffuse large B-cell lymphoma, germinal center subtype, involving the rectum, by clinical evaluation stage IE. 2. Hypertension. 3. Degenerative arthritis. 4. Anxiety/depression. Plan: Discussed with patient regarding her labs white blood count 11.7 hemoglobin 10.6 hematocrit 32.6 platelets 222,000 CMP within normal limits Clinically, patient doing well with no new signs symptom suggestive of disease progression. In fact, she is feeling much better, her constipation has resolved, at this point, we will proceed with cycle #3/4 with R-CHOP followed by Marina and then return to clinic in 2 weeks with CBC CMP. And will consider follow-up CT PET scan after 4 cycles of R-CHOP. Patient has mild to moderate bilateral lower extremity edema, which is chronic as per patient she was given diuretics by PMD but she is not taking on a regular basis, patient was advised to take diuretics as prescribed by PMD and keep legs elevated while in bed and also cut down her salt intake, will monitor Signed By: Ana Amaral M.D. <<Signature on File>>
[2021-06-07] MEDS: pegfilgrastim 6 mg/0.6 mL Kit (onpro) SUBCUT (16:25)
== END 2021-06-11 23:59 | disposition home or self-care (01) ==
LOC: ONCMED 06:23
PROVIDERS: PCP Nurse Practitioner Family; Visit Provider Internal Medicine Hematology & Oncology
DX: Z51.12 Encounter for antineoplastic immunotherapy (principal); Z51.11 Encounter for antineoplastic chemotherapy; C83.35 Diffuse large B-cell lymphoma, lymph nodes of inguinal region and lower limb; I10 Essential (primary) hypertension; M19.90 Unspecified osteoarthritis, unspecified site; F41.9 Anxiety disorder, unspecified; F32.9 Major depressive disorder, single episode, unspecified; R60.0 Localized edema; Z79.899 Other long term (current) drug therapy
CPT/HCPCS: 36415; 36591; 36593; 80053; 85025; 96367; 96368; 96372; 96375; 96411; 96413; 96415; 96417; 99214; 99215; J1100; J1200; J1453; J2469; J2505; J2997; J7030; J7040; J9000; J9070; J9370

== ENCOUNTER 2021-07-05 08:09 | Outpatient (RCR) | payer MEDICARE, SELFPAY ==
[2021-07-05] MEDS: alteplase 1 mg/mL SDV 2 mL 2 MG IV (08:39)
[2021-07-05 08:53] LABS: Basophils % 0.3 %; Eosinophils # 0.1 10^3/uL (0.0-0.8); Eosinophils % 0.6 %; Hematocrit 32.8 % (37.0-47.0); Hemoglobin 10.5 g/dL (11.5-15.3); Lymphocytes # 0.7 10^3/uL (0.8-4.8); Lymphocytes % 6.7 %; Mean Corpuscular Hemoglobin 32.9 pg (28.0-34.0); Mean Corpuscular Volume 102.8 fl (81-99); Mean Platelet Volume 9.2 fL (7.4-10.4); Monocytes # 0.7 10^3/uL (0.2-0.9); Monocytes % 6.9 %; Neutrophils # 8.95 10^3/uL (1.8-7.7); Neutrophils % 84.8 %; Nucleated Red Blood Cells % 0 %; Platelet Count 236 10^3/cmm (130-400); Red Blood Count 3.19 10^6/uL (4.1-5.3); Red Cell Distribution Width 16.3 % (12.1-15.1); White Blood Count 10.6 10^3/uL (4.0-10.0)
[2021-07-05 09:19] LABS: Alanine Aminotransferase 17 U/L (0-33); Albumin Level 3.4 g/dL (3.5-5.2); Alkaline Phosphatase 67 IU/L (35-105); Anion Gap 15.2 (5-19); Aspartate Amino Transferase 24 U/L (0-32); Blood Urea Nitrogen 18 mg/dL (8-23); Calcium 9.4 mg/dL (8.5-10.5); Carbon Dioxide 25 mmol/L (22-29); Chloride 104 mmol/L (98-107); Globulin 1.8 g/dL (1.3-4.6); Glucose 84 mg/dL (65-115); Osmolality Calculated 291 mOsm/kg (285-295); Potassium 4.2 mmol/L (3.5-5.1); Sodium 140 mmol/L (136-145); Total Bilirubin 0.3 mg/dL (0.15-1.2); Total Protein 5.2 g/dL (6.6-8.7)
[2021-07-05] MEDS: acetaminophen 325 mg Tablet 650 MG PO (10:50)
[2021-07-05] MEDS: diphenhydrAMINE 50 mg/mL SDV 1mL 25 MG IV (10:51)
[2021-07-05] MEDS: palonosetron 0.25 mg/5 mL SDV IV (10:53)
[2021-07-05] MEDS: fosaprepitant 150 MG in sodium chloride 0.9% 150 ML 300 MG IV (11:11)
[2021-07-05] MEDS: sodium chloride 0.9% 500 ML 999 ML IV (11:37)
[2021-07-05] MEDS: pegfilgrastim 6 mg/0.6 mL Kit (onpro) SUBCUT (15:43)
== END 2021-07-12 23:59 | disposition home or self-care (01) ==
LOC: ONCMED 08:09
PROVIDERS: Nurse Practitioner Family; PCP Nurse Practitioner Family; Visit Provider Internal Medicine Hematology & Oncology
DX: Z51.12 Encounter for antineoplastic immunotherapy (principal); Z51.11 Encounter for antineoplastic chemotherapy; C83.39 Diffuse large B-cell lymphoma, extranodal and solid organ sites; I10 Essential (primary) hypertension; M19.90 Unspecified osteoarthritis, unspecified site; F41.9 Anxiety disorder, unspecified; F32.9 Major depressive disorder, single episode, unspecified; Z79.899 Other long term (current) drug therapy
CPT/HCPCS: 80053; 85025; 96367; 96372; 96375; 96377; 96411; 96413; 96415; 96417; 99215; J1100; J1200; J1453; J2469; J2506; J2997; J7040; J9000; J9070; J9312; J9370

== ENCOUNTER 2021-07-26 07:48 | Outpatient (RCR) | payer MEDICARE, SELFPAY ==
--- NOTE | 2021-07-26 | IR_ITS ---
WS: [id number] Fluoroscopy device check. HISTORY: LEFT subclavian Mediport not aspirating well. Fluoroscopy time: 0.3 minutes. There is some oncology access the Mediport and injected Omnipaque 300. The injection was performed wi thout difficulty. Contrast is noted flowing from the distal tip of the Mediport into the SVC. No thro mbus or occlusion. The tip of the Mediport is now in the mid SVC. IR/[place] [id number] IMPRESSION: 1. No MediPort or occlusion. 2. Tip of the Mediport terminates in the mid SVC. Mediport has slightly retract ed since the placement on 04/08/2021. Mediport port tubing has become more redu ndant and the tip has retracted.
[2021-07-26] MEDS: alteplase 1 mg/mL SDV 2 mL 2 MG IV ×2 (08:25→09:40)
[2021-07-26 08:54] LABS: Basophils % 0.3 %; Eosinophils % 0.1 %; Hematocrit 34.5 % (37.0-47.0); Hemoglobin 10.5 g/dL (11.5-15.3); Lymphocytes # 0.7 10^3/uL (0.8-4.8); Lymphocytes % 5.8 %; Mean Corpuscular HGB Conc 30.4 g/dL (30.0-36.0); Mean Corpuscular Hemoglobin 32.6 pg (28.0-34.0); Mean Corpuscular Volume 107.1 fl (81-99); Mean Platelet Volume 9.1 fL (7.4-10.4); Monocytes # 0.9 10^3/uL (0.2-0.9); Monocytes % 7.4 %; Neutrophils # 10.68 10^3/uL (1.8-7.7); Neutrophils % 85.4 %; Nucleated Red Blood Cells % 0 %; Platelet Count 281 10^3/cmm (130-400); Red Blood Count 3.22 10^6/uL (4.1-5.3); Red Cell Distribution Width 15.2 % (12.1-15.1); White Blood Count 12.5 10^3/uL (4.0-10.0)
[2021-07-26 09:20] LABS: Alanine Aminotransferase 38 U/L (0-33); Albumin Level 3.4 g/dL (3.5-5.2); Alkaline Phosphatase 68 IU/L (35-105); Anion Gap 12.7 (5-19); Aspartate Amino Transferase 28 U/L (0-32); Blood Urea Nitrogen 26 mg/dL (8-23); Calcium 9.3 mg/dL (8.5-10.5); Carbon Dioxide 25 mmol/L (22-29); Chloride 105 mmol/L (98-107); Globulin 2.2 g/dL (1.3-4.6); Glucose 89 mg/dL (65-115); Osmolality Calculated 292 mOsm/kg (285-295); Potassium 3.7 mmol/L (3.5-5.1); Sodium 139 mmol/L (136-145); Total Bilirubin 0.2 mg/dL (0.15-1.2); Total Protein 5.6 g/dL (6.6-8.7)
[2021-07-26] MEDS: iohexol 300 mg/mL 50 mL Btl IV (13:05)
--- NOTE | 2021-07-26 18:17 | ONC FU_ITS ---
Dr. 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 She had presented with constipation, change in bowel habit, and weight loss. Her colonoscopy on 02/25/2021 showed a malignant appearing mass in the rectum, biopsy of which was consistent with high-grade large B-cell lymphoma, germinal center immunophenotype. Her CT abdomen/pelvis showed a rectal mass measuring 6 cm with direct extension into the presacral space. There was no associated adenopathy. PET/CT on 03/27/2021 showed FDG avid eccentric rectal wall thickening measuring 3.2 x 4.7 cm, SUV 47.7. There was some prominent cecal uptake which was thought to likely be physiologic. There was no evidence of raman disease or other areas of involvement. She had second opinion evaluation with Dr. Bustillo at [facility] on 03/31/2021. The overall findings were consistent with diffuse large B-cell lymphoma, germinal center phenotype, stage I E. She was recommended to undergo treatment with 4 cycles of R-CHOP chemotherapy followed by consolidation radiation as indicated. She was recommended to begin on immediate steroid therapy with prednisone 80 mg daily and it was also recommended that with her first cycle of treatment the rituximab be administered 7 to 14 days prior to the CHOP chemotherapy. She received her first dose of Rituxan on April 06, 2021 and Completed recommended 4 cycles of R-CHOP on July 05, 2021. Came for follow-up, complaining of persistent bilateral lower extremities edema, now being treated with diuretics, as per patient she was seen by her PMD who gave her antibiotics and now lower extremity edema/swelling is improving. No melena or hematochezia, no mouth sores, no jaundice, no abdominal pain, no peripheral lymphadenopathy, no numbness, no chest pain, no palpitation or shortness of breath at rest., Has completed recommended 4 cycles of chemotherapy with R-CHOP, well Medications: Acetaminophen , Adult Aspirin EC Low Strength 1 Tablet (of 81 mg) Tablet, enteric coated Oral daily, Citalopram Hydrobromide 1 Tablet (of 10 mg) Oral daily, [employer] Senna Tablet Oral PRN, Levaquin 1 Tablet (of 500 mg) Oral daily for 7 days, Loratadine (10 mg) Capsule Oral daily, Losartan Potassium 1 Tablet (of 100 mg) Oral daily, Metoprolol Succinate ER 1 Tablet (of 25 mg) Tablet SR 24 HR Oral daily, predniSONE 3 Tablet (of 20 mg) Oral daily PRN, Vitamin C 1 Caplet (of 500 mg) Capsule Oral daily Allergies: Lovastatin Review of Systems: Review of Systems is not available for this patient. Vital Signs: Performed on Jul 26, 2021 12:59 Height - 61.00 in Weight - 117.4 lbs (LOW) BSA - 1.51 sq.m BMI - 22.18 Temperature - 98.4 F Pulse - 74 /min Respiration - 16 /min BP - 130/70 mm(hg) O2 Sat - 97 % Pain - 7 Fatigue - 7 Performance Status: 2 - Ambulatory/capable of all self-care, unable to perform any work activities. Up and about more than 50% of waking hours. (ECOG) Physical Examination: ENMT - No mouth sores, no thrush, no jaundice, Respiratory - Lungs are clear to auscultation, Cardiovascular - Regular rate and rhythm of heart, Abdomen - Soft, bowel sounds present, Extremities - 3+ edema bilaterally. Lab/Imaging: Test performed on Jul 05, 2021 07:41 Glucose 84 mg/dL BUN 18 mg/dL Creatinine 0.4 mg/dL Cr Clearance (Est) 107.09 mL/min Sodium 140 mmol/L Potassium 4.2 mmol/L Chloride 104 mmol/L CO2 25 mmol/L Calcium 9.4 mg/dL Protein, Total 5.2 g/dL Albumin 3.4 g/dL Globulin 1.8 g/dL Bilirubin, Total 0.3 mg/dL Alkaline Phosphatase 67 International Units/L AST (SGOT) 24 International Units/L ALT (SGPT) 17 International Units/L WBC 10.6 10^9/L RBC 3.19 10^12/L HGB 10.5 g/dL HCT 32.8 % MCV 102.8 fl MCH 32.9 pg MCHC 32.0 g/dL RDW 16.3 % Platelet Count 236 10^9/L MPV 9.2 fL Neutrophils (Gran) 8.95 10^9/L Lymphocytes 0.7 10^9/L Monocytes 0.7 10^9/L Eosinophils 0.0 10^9/L Basophils 0.0 10^9/L Impression: 1. Diffuse large B-cell lymphoma, germinal center subtype, involving the rectum, by clinical evaluation stage IE. Status post 4 cycles of chemotherapy with R-CHOP ,Completed on July 05, 2021 Follow-up CT PET scan done on July 10, 2021 shows resolution of rectal wall thickening and uptake consistent with complete response to therapy resolution of probable physiological sickle activity. 2. Hypertension. 3. Degenerative arthritis. 4. Anxiety/depression. Plan: Discussed with patient regarding her labs white blood count 12.5 hemoglobin 10.5 hematocrit 34.5 platelets 281,000 ANC 10,680, CMP within normal limit except ALT 38 compared to 17 previously Follow-up CT PET scan done on July 10, 2021 shows resolution of rectal wall thickening and uptake, consistent with a complete response to therapy Clinically, patient is doing well, with persistent but improving bilateral lower extremity edema, etiology unclear, could be bilateral DVT, will check venous Doppler study and also consider echocardiogram to rule out Adriamycin induced cardiotoxicity. Patient return to clinic after above-mentioned work-up with CBC CMP As far as mild anemia is concerned, will consider anemia work-up including iron studies, B12 folic acid. As patient has completed recommended 4 cycles of chemotherapy with R-CHOP for diffuse large B-cell lymphoma involving rectum only, We will refer her to radiation oncology for evaluation for consolidation radiation therapy to rectum if needed^, As patient presented with progressive constipation indicating ?bulky disease] Signed By: Ana Amaral M.D. <<Signature on File>>
[2021-07-26 21:31] LABS: Ferritin 366 ng/mL (15-150); Iron 53 ug/dL (37-145); Percent Saturation 25.2 % (20-50); Total Iron Binding Capacity 210 mcg/dl; Unsaturated Iron Binding 157 ug/dL (112-347)
[2021-07-26 21:46] LABS: Vitamin B12 1089 pg/mL (232-1245)
== END 2021-08-09 23:59 | disposition home or self-care (01) ==
LOC: ONCMED 07:48
PROVIDERS: PCP Nurse Practitioner Family; Visit Provider Internal Medicine Hematology & Oncology
DX: C83.35 Diffuse large B-cell lymphoma, lymph nodes of inguinal region and lower limb (principal); I10 Essential (primary) hypertension; M19.90 Unspecified osteoarthritis, unspecified site; F41.9 Anxiety disorder, unspecified; F32.9 Major depressive disorder, single episode, unspecified; Z79.899 Other long term (current) drug therapy; Z92.21 Personal history of antineoplastic chemotherapy
CPT/HCPCS: 36593; 36598; 80053; 82607; 82728; 83540; 83550; 85025; 96374; 96376; 99215; J2997; Q9967

== ENCOUNTER 2021-08-16 11:43 | Outpatient (CLI) | payer MEDICARE, SELFPAY ==
--- NOTE | 2021-08-16 07:15 | USCV_ITS ---
Deyanira Yoon Age: 76 Gender: F : 1945 Exam Date: 08/16/2021 13:01 Ordering Phys: Jonathan Pearl Technologist: SARAY Exam Location: [facility] [place] Indication: right and left leg pain PROCEDURES: Venous duplex imaging was performed in only the right lower extremity. Bilaterally, the common femoral, superficial femoral, profunda femoral, popliteal, posterior tibial, greater saphenous veins, and the peroneal trunk were identified and interrogated in the standard fashion. FINDINGS: There is thrombus within the right proximal greater saphenous vein. There is also thrombus noted in the right proximal femoral vein. Complex cystic mass with low level echos and no vascularity measuring 2.3 x 4.4 in the right popliteal fossa. There is also thrombus noted within the left gsv junction extedning to the thigh. All other veins appear free of thrombus at this time. Bilateral subcutaneous edema. CONCLUSIONS Bilateral superficial thrombophlebitis. Within a few centimeters of the CFV's. Right Farr cysst. Dr. Vania Abdul DO (Electronically Signed) Final Date: 16 August 2021 15:22 S
== END 2021-08-16 11:44 | disposition home or self-care (01) ==
LOC: RAD 11:45
PROVIDERS: PCP Nurse Practitioner Family; Visit Provider Nurse Practitioner
DX: I80.03 Phlebitis and thrombophlebitis of superficial vessels of lower extremities, bilateral (principal); M71.21 Synovial cyst of popliteal space [Baker], right knee; M79.661 Pain in right lower leg; M79.662 Pain in left lower leg
CPT/HCPCS: 93970

== ENCOUNTER 2021-08-19 09:33 | Outpatient (CLI) | payer MEDICARE, SELFPAY ==
--- NOTE | 2021-08-19 09:47 | USCV_ITS ---
Deyanira Yoon Age: 76 Gender: F : 1945 Exam Date: 08/19/2021 10:05 Ordering Phys: Ana Amaral MD Technologist: CA Exam Location: [facility] [place] Indication: B CELL BP: 135 / 60 HR: 59 Rhythm: Sinus Technical Quality: Adequate MEASUREMENTS (Male / Female) Normal Values 2D ECHO LV Diastolic Diameter PLAX 4.0 cm 4.2 - 5.9 / 3.9 - 5.3 cm LV Systolic Diameter PLAX 2.4 cm IVS Diastolic Thickness 1.6 cm 0.6 - 1.0 / 0.6 - 0.9 cm IVS Systolic Thickness 1.8 cm LVPW Diastolic Thickness 1.2 cm 0.6 - 1.0 / 0.6 - 0.9 cm LVPW Systolic Thickness 1.6 cm LVOT Diameter 2.0 cm LV Ejection Fraction 2D Teich 71.7 % LV Ejection Fraction MOD 2C 75.0 % LV Ejection Fraction 2C AL 74.7 % LA Diameter 2.3 cm LA Width 2.6 cm LA Height 4.8 cm RA Width 4.3 cm RA Height 5.1 cm Aorta at Sinotubular Diameter 2.3 cm M-MODE Aortic Annulus Diameter 2.5 cm LA Ao Ratio MM 1.0 MV E Point Septal Separation 0.2 cm DOPPLER AV Peak Velocity 285.5 cm/s LVOT Peak Velocity 111.0 cm/s AV Area Cont Eq vti 1.4 cm squared AV Area Cont Eq pk 1.2 cm squared MV Peak Velocity 118.0 cm/s MV Area PHT 2.9 cm squared Mitral E to A Ratio 0.6 MV E' Velocity 36.0 cm/s Mitral E to MV E' Ratio 11.7 Mitral E to LV E' Lateral Ratio 15.8 Mitral E to LV E' Septal Ratio 9.3 TR Peak Velocity 283.6 cm/s TR Peak Gradient 32.2 mmHg TR Mean Velocity 210.1 cm/s TR Mean Gradient 19.4 mmHg TR Velocity Time Integral 84.0 cm TV Peak E Velocity 53.0 cm/s Right Atrial Pressure 3.0 mmHg Pulmonary Artery Systolic Pressu 35.2 mmHg PV Peak Velocity 108.0 cm/s RV Acceleration Time 0.1 s RV Ejection Time 0.3 s RV AcT/ET 0.4 FINDINGS Left Ventricle Normal left ventricular size. LV systolic function is normal with EF of 55-60%. No regional wall motion abnormalities. Grade 1 diastolic dysfunction Right Ventricle The right ventricle is normal in size and function. Right Atrium The right atrium is normal in size. Left Atrium The left atrium is normal in size. Mitral Valve Structurally normal mitral valve without significant stenosis or prolapse. There is trace mitral regurgitation. Aortic Valve Aortic valve is thickened. Mild aortic stenosis is noted. Mean gradient across aortic valve is 15.9 mmHg with aortic valve area of 1.41 cm squared.There is mild aortic regurgitation. Tricuspid Valve Structurally normal tricuspid valve without significant stenosis. Mild Tricuspid regurgitation. RVSP is 35-40mmHg. Mild pulmonary hypertension Pulmonic Valve Structurally normal pulmonic valve without significant stenosis. There is no pulmonic regurgitation. Pericardium Normal pericardium without effusion. Aorta Normal ascending aorta dimension. CONCLUSIONS LV systolic function is normal with EF 55 to 60%. Grade 1 diastolic dysfunction. Trace mitral regurgitation. Aortic valve is thickened. Mild aortic stenosis is noted. Mean gradient across aortic valve is 15.9 mmHg with aortic valve area of 1.41 cm squared. There is mild aortic regurgitation. Mild tricuspid regurgitation. Mild pulmonary hypertension. Compared to prior echocardiogram from 11/03/2020, patient now has mild aortic stenosis. Jacobo Greenberg MD (Electronically Signed) Final Date: 20 August 2021 16:44 S
== END 2021-08-19 09:34 | disposition home or self-care (01) ==
LOC: RAD 09:34
PROVIDERS: PCP Nurse Practitioner Family; Visit Provider Internal Medicine Hematology & Oncology
DX: C83.39 Diffuse large B-cell lymphoma, extranodal and solid organ sites (principal); I27.20 Pulmonary hypertension, unspecified; I08.2 Rheumatic disorders of both aortic and tricuspid valves
CPT/HCPCS: 93306

== ENCOUNTER 2021-08-23 08:08 | Outpatient (RCR) | payer MEDICARE, SELFPAY ==
[2021-08-23 08:41] LABS: Basophils % 0.1 %; Eosinophils % 0.1 %; Hematocrit 35.1 % (37.0-47.0); Hemoglobin 10.7 g/dL (11.5-15.3); Lymphocytes # 0.6 10^3/uL (0.8-4.8); Lymphocytes % 5.8 %; Mean Corpuscular HGB Conc 30.5 g/dL (30.0-36.0); Mean Corpuscular Hemoglobin 31.3 pg (28.0-34.0); Mean Corpuscular Volume 102.6 fl (81-99); Monocytes # 0.4 10^3/uL (0.2-0.9); Monocytes % 4.1 %; Neutrophils # 8.48 10^3/uL (1.8-7.7); Neutrophils % 88.7 %; Nucleated Red Blood Cells % 0 %; Platelet Count 273 10^3/cmm (130-400); Red Blood Count 3.42 10^6/uL (4.1-5.3); Red Cell Distribution Width 13.9 % (12.1-15.1); White Blood Count 9.6 10^3/uL (4.0-10.0)
[2021-08-23 08:59] LABS: Alanine Aminotransferase 21 U/L (0-33); Albumin Level 3.4 g/dL (3.5-5.2); Alkaline Phosphatase 84 IU/L (35-105); Anion Gap 14.7 (5-19); Aspartate Amino Transferase 17 U/L (0-32); Blood Urea Nitrogen 17 mg/dL (8-23); Calcium 8.1 mg/dL (8.5-10.5); Carbon Dioxide 24 mmol/L (22-29); Chloride 104 mmol/L (98-107); Globulin 1.7 g/dL (1.3-4.6); Glucose 110 mg/dL (65-115); Osmolality Calculated 290 mOsm/kg (285-295); Potassium 3.7 mmol/L (3.5-5.1); Sodium 139 mmol/L (136-145); Total Bilirubin 0.3 mg/dL (0.15-1.2); Total Protein 5.1 g/dL (6.6-8.7)
--- NOTE | 2021-08-23 16:11 | ONC FU_ITS ---
Dr. 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 She had presented with constipation, change in bowel habit, and weight loss. Her colonoscopy on 02/25/2021 showed a malignant appearing mass in the rectum, biopsy of which was consistent with high-grade large B-cell lymphoma, germinal center immunophenotype. Her CT abdomen/pelvis showed a rectal mass measuring 6 cm with direct extension into the presacral space. There was no associated adenopathy. PET/CT on 03/27/2021 showed FDG avid eccentric rectal wall thickening measuring 3.2 x 47.7 cm, SUV 47.7. There was some prominent cecal uptake which was thought to likely be physiologic. There was no evidence of raman disease or other areas of involvement. She had second opinion evaluation with Dr. Bustillo at [facility] on 03/31/2021. The overall findings were consistent with diffuse large B-cell lymphoma, germinal center phenotype, stage I E. She was recommended to undergo treatment with 4 cycles of R-CHOP chemotherapy followed by consolidation radiation as indicated. She was recommended to begin on immediate steroid therapy with prednisone 80 mg daily and it was also recommended that with her first cycle of treatment the rituximab be administered 7 to 14 days prior to the CHOP chemotherapy. She received her first dose of Rituxan on April 06, 2021 and Completed recommended 4 cycles of R-CHOP on July 05, 2021. , Patient was referred to radiation oncology for evaluation for consolidation radiation therapy to the involved field, as per patient, due to bad weather she could not go to radiation oncology clinic but did talk to Dr. Anaya on the phone and as per patient it was concluded not to consider radiation therapy rather observation. Her follow-up echocardiogram done on August 20, 2021 showed ejection fraction within normal range e.g. 55 to 60% no wall motion abnormality seen. Because of bilateral lower extremity edema, patient's PMD did a venous Doppler study on August 16, 2021 which showed bilateral superficial thrombophlebitis, as per patient she was started on Xarelto for 3 months and a repeat study, now being followed by PMD. Came for follow-up, complaining of generalized weakness and fatigue but no nausea or vomiting, no diarrhea constipation, no fever chills, no mouth sores, no jaundice, no night sweats, no weight loss, no recurrent fever, still has persistent lower extremity edema but now improving, she was recently diagnosed with superficial thrombophlebitis involving lower extremities and now being treated with Xarelto per PMD. Medications: Acetaminophen , Adult Aspirin EC Low Strength 1 Tablet (of 81 mg) Tablet, enteric coated Oral daily, Citalopram Hydrobromide 1 Tablet (of 10 mg) Oral daily, Furosemide 1 Tablet (of 20 mg) Oral daily PRN, Loratadine (10 mg) Capsule Oral daily, Losartan Potassium 1 Tablet (of 100 mg) Oral daily, Metoprolol Succinate ER 1 Tablet (of 25 mg) Tablet SR 24 HR Oral daily, predniSONE 3 Tablet (of 20 mg) Oral daily PRN, Vitamin C 1 Caplet (of 500 mg) Capsule Oral daily, Xarelto 1 Tablet (of 10 mg) Oral daily Allergies: Lovastatin Review of Systems: Review of Systems is not available for this patient. Vital Signs: Performed on Aug 23, 2021 11:47 Height - 61.00 in Weight - 117.2 lbs (LOW) BSA - 1.51 sq.m BMI - 22.14 Temperature - 98.4 F Pulse - 82 /min Respiration - 16 /min BP - 144/81 mm(hg) (HIGH) O2 Sat - 99 % Pain - 8 Fatigue - 5 Performance Status: 2 - Ambulatory/capable of all self-care, unable to perform any work activities. Up and about more than 50% of waking hours. (ECOG) Physical Examination: ENMT - No mouth sores, no thrush, no jaundice, Respiratory - Lungs are clear to auscultation, Cardiovascular - Regular rate and rhythm of heart, Abdomen - Soft, bowel sounds present, Extremities - No visible edema. Lab/Imaging: Test performed on Jul 05, 2021 07:41 Glucose 84 mg/dL BUN 18 mg/dL Creatinine 0.4 mg/dL Cr Clearance (Est) 107.09 mL/min Sodium 140 mmol/L Potassium 4.2 mmol/L Chloride 104 mmol/L CO2 25 mmol/L Calcium 9.4 mg/dL Protein, Total 5.2 g/dL Albumin 3.4 g/dL Globulin 1.8 g/dL Bilirubin, Total 0.3 mg/dL Alkaline Phosphatase 67 International Units/L AST (SGOT) 24 International Units/L ALT (SGPT) 17 International Units/L WBC 10.6 10^9/L RBC 3.19 10^12/L HGB 10.5 g/dL HCT 32.8 % MCV 102.8 fl MCH 32.9 pg MCHC 32.0 g/dL RDW 16.3 % Platelet Count 236 10^9/L MPV 9.2 fL Neutrophils (Gran) 8.95 10^9/L Lymphocytes 0.7 10^9/L Monocytes 0.7 10^9/L Eosinophils 0.0 10^9/L Basophils 0.0 10^9/L Impression: 1. Diffuse large B-cell lymphoma, germinal center subtype, involving the rectum, by clinical evaluation stage IE. Status post 4 cycles of chemotherapy with R-CHOP ,Completed on July 05, 2021, Was referred to radiation oncology for evaluation for involved field radiation therapy, as per patient she did discuss her case with Dr. Anaya, radiation oncologist on phone and it was concluded not to consider radiation therapy rather observation Follow-up CT PET scan done on July 10, 2021 shows resolution of rectal wall thickening and uptake consistent with complete response to therapy resolution of probable physiological sickle activity. Bilateral lower extremity edema, venous Doppler study done on August 16, 2021 showed evidence of superficial thrombophlebitis, patient was started on Xarelto per PMD and planning to continue for 3 months and then reevaluate. Anemia, anemia work-up inconclusive, could be multifactorial including underlying MDS 2. Hypertension. 3. Degenerative arthritis. 4. Anxiety/depression. Plan: Discussed with patient regarding her labs white blood count 9.6 hemoglobin 10.7 g compared to 10.5 g previously hematocrit 35.1 platelets 273 MCV 102.6 anemia work-up done on July 26, 2021 showed iron studies including B12 within normal range Follow-up echocardiogram done on August 19, 2021 showed ejection fraction within normal range at 55 to 60% Clinically, patient doing well with no new signs suggestive of recurrence of disease, no B symptoms her lab work-up is within normal range except persistent mild anemia, anemia work-up was inconclusive, we will continue to monitor, considering her age underlying myelodysplasia cannot be ruled out Her posttreatment echocardiogram shows ejection fraction within normal range Recently diagnosed with superficial thrombophlebitis involving lower extremities and now being treated with Xarelto per PMD. We will continue monthly port maintenance and she will return to clinic in 1 month with CBC and for port maintenance, if her hemoglobin continue to improve we will monitor otherwise may consider bone marrow evaluation to rule out underlying MDS. Signed By: Ana Amaral M.D. <<Signature on File>>
== END 2021-09-09 23:59 | disposition home or self-care (01) ==
LOC: ONCMED 08:08
PROVIDERS: PCP Nurse Practitioner Family; Visit Provider Internal Medicine Hematology & Oncology
DX: C83.35 Diffuse large B-cell lymphoma, lymph nodes of inguinal region and lower limb (principal); R60.0 Localized edema; I80.3 Phlebitis and thrombophlebitis of lower extremities, unspecified; D64.9 Anemia, unspecified; I10 Essential (primary) hypertension; M19.90 Unspecified osteoarthritis, unspecified site; F41.9 Anxiety disorder, unspecified; F32.9 Major depressive disorder, single episode, unspecified; Z79.01 Long term (current) use of anticoagulants; Z79.899 Other long term (current) drug therapy
CPT/HCPCS: 80053; 85025; 96523; 99214

== ENCOUNTER 2021-10-04 06:55 | Outpatient (RCR) | payer MEDICARE, SELFPAY ==
[2021-09-23 11:30] LABS: Basophils % 0.7 %; Eosinophils % 0.9 %; Hematocrit 34.2 % (37.0-47.0); Hemoglobin 10.4 g/dL (11.5-15.3); Lymphocytes # 1.3 10^3/uL (0.8-4.8); Lymphocytes % 30.1 %; Mean Corpuscular HGB Conc 30.4 g/dL (30.0-36.0); Mean Corpuscular Hemoglobin 29.7 pg (28.0-34.0); Mean Corpuscular Volume 97.7 fl (81-99); Mean Platelet Volume 9.1 fL (7.4-10.4); Monocytes # 0.5 10^3/uL (0.2-0.9); Monocytes % 12.1 %; Neutrophils # 2.21 10^3/uL (1.8-7.7); Neutrophils % 52.4 %; Nucleated Red Blood Cells % 0 %; Platelet Count 239 10^3/cmm (130-400); Red Cell Distribution Width 13.3 % (12.1-15.1); White Blood Count 4.2 10^3/uL (4.0-10.0)
[2021-09-23 11:57] LABS: Alanine Aminotransferase 14 U/L (0-33); Albumin Level 3.7 g/dL (3.5-5.2); Alkaline Phosphatase 103 IU/L (35-105); Aspartate Amino Transferase 19 U/L (0-32); Blood Urea Nitrogen 21 mg/dL (8-23); Calcium 9.2 mg/dL (8.5-10.5); Carbon Dioxide 25 mmol/L (22-29); Chloride 103 mmol/L (98-107); Globulin 1.8 g/dL (1.3-4.6); Glucose 92 mg/dL (65-115); Osmolality Calculated 287 mOsm/kg (285-295); Sodium 137 mmol/L (136-145); Total Bilirubin 0.2 mg/dL (0.15-1.2); Total Protein 5.5 g/dL (6.6-8.7)
--- NOTE | 2021-09-23 16:15 | ONC FU_ITS ---
Trudy Clemnos Progress Note Patient: Deyanira Yoon Unit #: [id number]: 1945 Dicatated By: Trudy Clemons N.P.Date of Visit:Sep 23, 2021 Onc MED Follow-up/Prog Note Chief Complaint: Lymphoma. 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 She had presented with constipation, change in bowel habit, and weight loss. Her colonoscopy on 02/25/2021 showed a malignant appearing mass in the rectum, biopsy of which was consistent with high-grade large B-cell lymphoma, germinal center immunophenotype. Her CT abdomen/pelvis showed a rectal mass measuring 6 cm with direct extension into the presacral space. There was no associated adenopathy. PET/CT on 03/27/2021 showed FDG avid eccentric rectal wall thickening measuring 3.2 x 47.7 cm, SUV 47.7. There was some prominent cecal uptake which was thought to likely be physiologic. There was no evidence of raman disease or other areas of involvement. She had second opinion evaluation with Dr. Bustillo at [facility] on 03/31/2021. The overall findings were consistent with diffuse large B-cell lymphoma, germinal center phenotype, stage I E. She was recommended to undergo treatment with 4 cycles of R-CHOP chemotherapy followed by consolidation radiation as indicated. She was recommended to begin on immediate steroid therapy with prednisone 80 mg daily and it was also recommended that with her first cycle of treatment the rituximab be administered 7 to 14 days prior to the CHOP chemotherapy. She received her first dose of Rituxan on April 06, 2021 and Completed recommended 4 cycles of R-CHOP on July 05, 2021. , Patient was referred to radiation oncology for evaluation for consolidation radiation therapy to the involved field, as per patient, due to bad weather she could not go to radiation oncology clinic but did talk to Dr. Anaya on the phone and as per patient it was concluded not to consider radiation therapy rather observation. Her follow-up echocardiogram done on August 20, 2021 showed ejection fraction within normal range e.g. 55 to 60% no wall motion abnormality seen. Because of bilateral lower extremity edema, patient's PMD did a venous Doppler study on August 16, 2021 which showed bilateral superficial thrombophlebitis, as per patient she was started on Xarelto for 3 months and a repeat study, now being followed by PMD. Patient presents today for follow-up complaining of generalized weakness and fatigue. She states her appetite is good. No fever, chills, night sweats. No sinus drainage or mouth sores. No shortness of breath, cough, chest pain. No nausea or vomiting. No joint or muscle pain. She does have bilateral lower extremity edema secondary to bilateral superficial thrombophlebitis and is being followed by her PCP. Review Of Symptoms: See above. Past Medical History: Anxiety Arthritis Depression Heart palpitations Hypertension Renal calculi Past Surgical History: Back surgery Cholecystectomy Hernia repair Hysterectomy/bilateral salpingectomy-oophorectomy Allergies: Lovastatin Medications: Acetaminophen Adult Aspirin EC Low Strength 1 Tablet (of 81 mg) Tablet, enteric coated Oral daily Citalopram Hydrobromide 1 Tablet (of 10 mg) Oral daily Furosemide 1 Tablet (of 20 mg) Oral daily PRN Loratadine (10 mg) Capsule Oral daily Losartan Potassium 1 Tablet (of 100 mg) Oral daily Metoprolol Succinate ER 1 Tablet (of 25 mg) Tablet SR 24 HR Oral daily predniSONE 3 Tablet (of 20 mg) Oral daily PRN Vitamin C 1 Caplet (of 500 mg) Capsule Oral daily Xarelto 1 Tablet (of 10 mg) Oral daily Xarelto 1 Tablet (of 10 mg) Oral daily Family History: Ms. Yoon's mother at age 73: breast cancer, and type II diabetes. Ms. Yoon's father at age 73: congestive heart failure, and osteoporosis. Ms. Yoon's maternal grandmother is : type II diabetes. Her paternal grandmother is : lung cancer. Social History: Ms. Yoon is . Ms. Yoon has never smoked. She has no history of drinking. Physical Examination: Performed on Sep 23, 2021 13:18: Height - 61.00 in, Weight - 122.6 lbs (HIGH), BSA - 1.53 sq.m, BMI - 23.17, Temperature - 97.6 F (LOW), Pulse - 67 /min, Respiration - 18 /min, BP - 129/76 mm(hg), O2 Sat - 98 %, Pain - 0, and Fatigue - 5. Performance Status: 2 - Ambulatory/capable of all self-care, unable to perform any work activities. Up and about more than 50% of waking hours. (ECOG) Constitutional Alert, cooperative, oriented. Mood and affect appropriate. Appears close to chronological age. Well nourished. Well developed. Head Normocephalic; no scars. Respiratory Lungs are clear to auscultation without rhonchi or wheezing. Cardiovascular Regular rate and rhythm of heart without murmurs, gallops or rubs. Abdomen Non-tender, non-distended, no masses, ascites or hepatosplenomegaly. Good bowel sounds. No guarding or rebound tenderness. Extremities 2+ pitting edema bilateral lower extremities Musculoskeletal Generalized weakness. Able to ambulate short distances Psychiatric Alert and oriented times three. Coherent speech. Verbalizes understanding of our discussions today. Laboratory: Test performed on Sep 23, 2021 11:23 Sodium 137 mmol/L Potassium 4.0 mmol/L Chloride 103 mmol/L CO2 25 mmol/L Anion Gap 13.0 BUN 21 mg/dL Creatinine 0.4 mg/dL Cr Clearance (Est) 105.4700 mL/min Glucose 92 mg/dL Osmolality - Calculated 287 mOsm/kg Calcium 9.2 mg/dL Protein, Total 5.5 g/dL Albumin 3.7 g/dL Globulin 1.8 g/dL Bilirubin, Total 0.2 mg/dL ALT (SGPT) 14 U/L AST (SGOT) 19 U/L Alkaline Phosphatase 103 IU/L WBC 4.2 10 3/uL RBC 3.50 10 6/uL HGB 10.4 g/dL HCT 34.2 % MCV 97.7 fl MCH 29.7 pg MCHC 30.4 g/dL RDW 13.3 % Platelet Count 239 10 3/cmm MPV 9.1 fL Neutrophils 2.21 10 3/uL Lymphocytes 1.3 10 3/uL Monocytes 0.5 10 3/uL Eosinophils 0.0 10 3/uL Basophils 0.0 10 3/uL Neutrophil % 52.4 % Lymphocyte % 30.1 % Monocyte % 12.1 % Eosinophil % 0.9 % Basophils % 0.7 % NRBC % 0 % Impression: 1. Diffuse large B-cell lymphoma, germinal center subtype, involving the rectum, by clinical evaluation stage IE. Status post 4 cycles of chemotherapy with R-CHOP ,Completed on July 05, 2021, Was referred to radiation oncology for evaluation for involved field radiation therapy, as per patient she did discuss her case with Dr. Anaya, radiation oncologist on phone and it was concluded not to consider radiation therapy rather observation Follow-up CT PET scan done on July 10, 2021 shows resolution of rectal wall thickening and uptake consistent with complete response to therapy resolution of probable physiological sickle activity. Bilateral lower extremity edema, venous Doppler study done on August 16, 2021 showed evidence of superficial thrombophlebitis, patient was started on Xarelto per PMD and planning to continue for 3 months and then reevaluate. Anemia, anemia work-up inconclusive, could be multifactorial including underlying MDS 2. Hypertension. 3. Degenerative arthritis. 4. Anxiety/depression. Plan: Follow-up echocardiogram done on August 19, 2021 showed ejection fraction within normal range at 55 to 60% Labs were reviewed with patient. With hemoglobin at 10.4 and hematocrit at 34.2. We will recheck iron studies although they have been normal in the past. It was recommended that patient have a bone marrow biopsy to rule out MDS. Patient is agreeable. She will follow-up in 1 month to discuss results of bone marrow biopsy with a CBC and CMP. Recently diagnosed with superficial thrombophlebitis involving lower extremities and now being treated with Xarelto per PMD. Signed By: Trudy Clemons N.P. <<Signature on File>>
[2021-09-23 16:39] LABS: Iron 47 ug/dL (37-145); Percent Saturation 17.6 % (20-50); Total Iron Binding Capacity 266 mcg/dl; Unsaturated Iron Binding 219 ug/dL (112-347)
[2021-09-23 17:06] LABS: Ferritin 90 ng/mL (15-150)
== END 2021-10-09 23:59 | disposition home or self-care (01) ==
LOC: ONCMED 06:55
PROVIDERS: Nurse Practitioner Family; PCP Nurse Practitioner Family; Visit Provider Internal Medicine Hematology & Oncology
DX: C83.36 Diffuse large B-cell lymphoma, intrapelvic lymph nodes (principal); R60.0 Localized edema; I80.3 Phlebitis and thrombophlebitis of lower extremities, unspecified; D64.9 Anemia, unspecified; Z79.01 Long term (current) use of anticoagulants; Z79.899 Other long term (current) drug therapy
CPT/HCPCS: 36415; 80053; 82728; 83540; 83550; 85025; 96523; 99214

== ENCOUNTER 2021-10-04 10:56 | Day surgery (SDC) | payer MEDICARE, SELFPAY ==
[2021-10-01 12:24] VITALS: BMI 23.0
[2021-10-04 11:29] VITALS: PULSE 65; RESP 16; TEMP 36.3; O2SAT 97
[2021-10-04 12:05] LABS: Basophils % 0.9 %; Eosinophils # 0.1 10^3/uL (0.0-0.8); Eosinophils % 1.3 %; Hematocrit 34.8 % (37.0-47.0); Lymphocytes # 1.4 10^3/uL (0.8-4.8); Lymphocytes % 30.2 %; Mean Corpuscular HGB Conc 31.6 g/dL (30.0-36.0); Mean Corpuscular Hemoglobin 30.3 pg (28.0-34.0); Mean Corpuscular Volume 95.9 fl (81-99); Mean Platelet Volume 9.6 fL (7.4-10.4); Monocytes # 0.5 10^3/uL (0.2-0.9); Monocytes % 11.6 %; Neutrophils % 53.3 %; Nucleated Red Blood Cells % 0 %; Platelet Count 221 10^3/cmm (130-400); Red Blood Count 3.63 10^6/uL (4.1-5.3); Red Cell Distribution Width 13.4 % (12.1-15.1); White Blood Count 4.5 10^3/uL (4.0-10.0)
--- NOTE | 2021-10-04 12:10 | ANES.PREANE2 ---
Pre-Anesthetic Assessment Height/Weight: Height 1.55 m Weight 55.338 kg Temp Pulse Resp Pulse Ox 97.4 F L 65 16 97 10/04/21 11:29 10/04/21 11:29 10/04/21 11:29 10/04/21 11:29 Preop Diagnosis: Rectal B-cell lymphoma. Operation Date: 10/04/21 12:30 Proposed Procedures p Bone Marrow Biospy With Aspiration(Not Applicable) - Ana Amaral MD Familial anesthetic complications: none Was Beta Christopher taken within 24 hours: Yes Was Clonidine taken within 24 hours: N/A Last intake: Intake Last Liquid Date 10/03/21 Last Liquid Time 18:00 Last Solid Date 10/03/21 Last Solid Time 18:00 Last Intake: 18:00 Social No alcohol and No tobacco Exam alert, oriented x 3, clear to auscultation bilaterally and regular rate & rhythm Airway Submandibular: within normal limits Cervical ROM: within normal limits Mallampati: Class II Dentition: full (poor missing) Pulmonary None reported CV/HEM Anemia, Arrythmia, Hypertension, Murmur and Palpitations None reported Hepatic None reported GI None reported Metabolic None reported Musc/skel Lower Back Pain and Osteoarthritis/DJD Neuropsych Anxiety and Depression Anesthetic Plan ASA status: 3 Anesthesia: MAC Risk of > 500 ml blood loss (7ml/kg in children): No Medications/Allergies Home Medications Medication Instructions Recorded Confirmed Last Taken Type aspirin 81 mg tablet,delayed 81 mg PO DAILY 08/09/19 10/04/21 09/29/21 History release (Adult Low Dose Aspirin) loratadine 10 mg tablet (Claritin) 10 mg PO DAILY PRN 08/09/19 10/04/21 10/04/21 History metoprolol succinate 25 mg 25 mg PO DAILY 90 Days #90 tab 04/12/21 10/04/21 10/04/21 Rx tablet,extended release 24 hr losartan 100 mg tablet (Cozaar) 100 mg PO DAILY #90 tab 04/30/21 10/04/21 10/03/21 Rx rivaroxaban 10 mg tablet (Xarelto) 10 mg PO DAILY #30 tab 08/16/21 10/04/21 09/29/21 Rx furosemide 20 mg tablet 20 mg PO DAILY #30 tab 09/23/21 10/04/21 10/03/21 Rx potassium chloride 8 mEq 8 meq PO DAILY #30 cap 09/23/21 10/04/21 10/03/21 Rx capsule,extended release Allergies Allergy/AdvReac Type Severity Reaction Status Date / Time No Known Allergies Allergy Verified 10/04/21 11:38 [facility] Anesthesia Medical History (Updated 09/27/21 @ 11:36 by Alethea Nguyễn LPN) Anxiety Arthritis Colon cancer Diffuse large b-cell lymphoma, extranodal and solid organ sites Environmental and seasonal allergies Essential hypertension Surgical History Hx of cholecystectomy Hx of hernia repair Hx of total hysterectomy 1996 Family History Mother Diabetes Cancer ovarian, breast, Grandmother Diabetes Father Congestive heart failure Social History Smoking and tobacco status: never smoked Second hand smoke exposure: No Smoking risk assessment/counseling performed?: No Alcohol intake: never Desire information about alcohol rehabilitation?: No Counseling given: No Desire information about substance/drug rehabilitation?: No Counseling given: No Adopted: No Caregiver/support person: No Lives independently: Yes Household members: none Housing: House Marital status: / service: No Current occupational status: retired History of recent travel: No Current gender identity: Female Female Reproductive History Date of last menstrual period: 09/03/20 Data Anesthesia : 10/04/21 11:50 Short CBC 10/04/21 Range/Units 11:50 WBC 4.5 (4.0-10.0) 10^3/uL Hgb 11.0 L (11.5-15.3) g/dL Hct 34.8 L (37.0-47.0) % MCV 95.9 (81-99) fl Plt Count 221 (130-400) 10^3/cmm Neut % (Auto) 53.3 % Neut # (Auto) 2.40 (1.8-7.7) 10^3/uL Cardiac Studies: Echocardiogram 08/19/21 Echocardiogram Limited Views 03/17/21 Echocardiogram Ultrasound 11/03/20
[2021-10-04] MEDS: sodium chloride 0.9% 1,000 ML 30 ML IV (12:12)
--- NOTE | 2021-10-04 12:47 | W.PM.OPSUD ---
Surgery/Procedure H&P Update DATE OF PROCEDURE: October 04, 2021 DATE H&P PERFORMED: 08/23/21 PREOP DIAGNOSIS: Rectal B-cell lymphoma. PRIMARY INDICATION FOR PROCEDURE: History of lymphoma status post chemotherapy, now with persistent anemia, generalized weakness and fatigue PLANNED PROCEDURE: Operation Date: 10/04/21 12:30 Proposed Procedures p Bone Marrow Biospy With Aspiration(Not Applicable) - Ana Amaral MD
--- NOTE | 2021-10-04 13:08 | P.PCN_ITS ---
Bone Marrow Biopsy Bone Marrow Biopsy: I was consulted by [] office regarding bone marrow biopsy on []. Briefly, the patient is a [] year old [] with []. In the Outpatient Services Department, with nursing staff and laboratory technologists in attendance, the procedure was discussed with the patient. Appropriate consent form had been signed. Appropriate alternatives, benefits and risks of procedure were discussed with the patient and she was pre- operatively assessed with a history and physical by myself and cleared for the biopsy procedure. The patient did request IV sedation and that was provided by the Anesthesia Department. Under aseptic condition right posterior iliac area was cleaned and prepped, local anesthesia was given, about 15 cc of bone marrow aspirate and core biopsy was obtained, patient tolerated procedure well, specimen was sent for routine histopathology, flow cytometry/cytogenetics, FISH for MDS. Postprocedure nurse instruction were given Thank you for allowing me to participate in this patient's care and diagnosis. Coding Level of Care Code Acute Location Manager for Chg Fwd History Problem Focused Exam Problem Focused Medical Decision Making Straight Forward
[2021-10-04 13:11] VITALS: BP 86/48; PULSE 60; RESP 16; TEMP 36.5; O2SAT 100
[2021-10-04 13:26] VITALS: BP 97/53; PULSE 63; RESP 18; O2SAT 99
[2021-10-04 13:43] VITALS: BP 151/81; PULSE 62; RESP 18; O2SAT 99
--- NOTE | 2021-10-04 14:49 | ANE.PACU2 ---
Inpatient post-anesthesia follow up: Airway intact: Yes Vital signs: Temperature 97.7 F Pulse Rate 62 Respiratory Rate 18 Blood Pressure 151/81 Pulse Oximetry 99 Oxygen Delivery Me thod Room Air Oxygen Flow Rate 2 Fraction of Inspir ed Oxygen Hydration adequate: Yes Nausea and vomiting: No Pain level: 1 Mental status: Baseline
[2021-10-05 13:18] LABS: Leukemia Profile (BBPL) See Report; Lymphoma Profile (BBPL) See Report
[2021-10-12 13:23] LABS: Miscellaneous Test See Scanned Lab Rpt
[2021-10-15 08:16] LABS: Miscellaneous Test See Scanned Lab Rpt
== END 2021-10-04 14:00 | disposition home or self-care (01) ==
PROVIDERS: PCP Nurse Practitioner Family; Visit Provider Internal Medicine Hematology & Oncology
PROC: 07DT3ZX Extraction of Bone Marrow, Percutaneous Approach, Diagnostic (ICD-10-PCS; CPT 38222; principal; 2021-10-04 12:30)
DX: C83.39 Diffuse large B-cell lymphoma, extranodal and solid organ sites (principal); D64.9 Anemia, unspecified; I10 Essential (primary) hypertension; M19.90 Unspecified osteoarthritis, unspecified site; Z79.82 Long term (current) use of aspirin; F41.9 Anxiety disorder, unspecified; Z85.038 Personal history of other malignant neoplasm of large intestine
CPT/HCPCS: 36415; 38222; 85025; 88184; 88185; 88237; 88264; 88305; 88311; 88367; 88374; J2704; J7030

== ENCOUNTER → 2021-11-05 11:30 | Outpatient (BNVA) | payer MEDICARE, SELFPAY | PROVIDERS: PCP Nurse Practitioner Family; Visit Provider Nurse Practitioner | DX: C83.39 Diffuse large B-cell lymphoma, extranodal and solid organ sites (principal); I10 Essential (primary) hypertension | CPT/HCPCS: 80053; 80061; 82607; 84443; 85007; 85025 ==

== ENCOUNTER 2021-11-09 09:11 | Oncology outpatient (recurring) (ONCR) | payer MEDICARE, SELFPAY ==
[2021-11-09 09:55] LABS: Basophils % 0.8 %; Eosinophils # 0.1 10^3/uL (0.0-0.8); Eosinophils % 2.4 %; Hematocrit 34.4 % (37.0-47.0); Hemoglobin 11.1 g/dL (11.5-15.3); Lymphocytes # 1.1 10^3/uL (0.8-4.8); Lymphocytes % 30.1 %; Mean Corpuscular HGB Conc 32.3 g/dL (30.0-36.0); Mean Corpuscular Hemoglobin 29.5 pg (28.0-34.0); Mean Corpuscular Volume 91.5 fl (81-99); Mean Platelet Volume 9.3 fL (7.4-10.4); Monocytes # 0.5 10^3/uL (0.2-0.9); Monocytes % 12.5 %; Neutrophils # 1.87 10^3/uL (1.8-7.7); Neutrophils % 50.7 %; Nucleated Red Blood Cells % 0 %; Platelet Count 211 10^3/cmm (130-400); Red Blood Count 3.76 10^6/uL (4.1-5.3); Red Cell Distribution Width 13.9 % (12.1-15.1); White Blood Count 3.7 10^3/uL (4.0-10.0)
[2021-11-09 10:31] LABS: Alanine Aminotransferase 15 U/L (0-33); Albumin Level 3.9 g/dL (3.5-5.2); Alkaline Phosphatase 100 IU/L (35-105); Anion Gap 11.4 (5-19); Aspartate Amino Transferase 23 U/L (0-32); Blood Urea Nitrogen 23 mg/dL (8-23); Calcium 9.1 mg/dL (8.5-10.5); Carbon Dioxide 26 mmol/L (22-29); Chloride 102 mmol/L (98-107); Globulin 2.1 g/dL (1.3-4.6); Glucose 91 mg/dL (65-115); Osmolality Calculated 283 mOsm/kg (285-295); Potassium 4.4 mmol/L (3.5-5.1); Sodium 135 mmol/L (136-145); Total Bilirubin 0.3 mg/dL (0.15-1.2)
[2021-11-09] MEDS: cyanocobalamin 1,000 mcg/mL SDV 1000 MCG IM (12:26)
== END 2021-11-09 23:59 | disposition home or self-care (01) ==
PROVIDERS: Nurse Practitioner Family; PCP Nurse Practitioner Family; Visit Provider Internal Medicine Hematology & Oncology
DX: C83.39 Diffuse large B-cell lymphoma, extranodal and solid organ sites (principal); I82.813 Embolism and thrombosis of superficial veins of lower extremities, bilateral; Z79.01 Long term (current) use of anticoagulants; D64.9 Anemia, unspecified; D72.819 Decreased white blood cell count, unspecified; E53.8 Deficiency of other specified B group vitamins
CPT/HCPCS: 36415; 80053; 85025; 96372; 99214; 99999; J3420

== ENCOUNTER 2021-12-07 09:14 | Oncology outpatient (recurring) (ONCR) | payer MEDICARE, SELFPAY ==
[2021-12-07 09:49] LABS: Basophils % 0.6 %; Eosinophils # 0.1 10^3/uL (0.0-0.8); Eosinophils % 1.5 %; Hematocrit 33.5 % (37.0-47.0); Hemoglobin 11.1 g/dL (11.5-15.3); Lymphocytes % 20.6 %; Mean Corpuscular HGB Conc 33.1 g/dL (30.0-36.0); Mean Corpuscular Hemoglobin 30.2 pg (28.0-34.0); Mean Platelet Volume 9.5 fL (7.4-10.4); Monocytes # 0.5 10^3/uL (0.2-0.9); Monocytes % 9.9 %; Neutrophils # 3.16 10^3/uL (1.8-7.7); Neutrophils % 66.6 %; Nucleated Red Blood Cells % 0 %; Platelet Count 219 10^3/cmm (130-400); Red Blood Count 3.68 10^6/uL (4.1-5.3); Red Cell Distribution Width 14.6 % (12.1-15.1); White Blood Count 4.8 10^3/uL (4.0-10.0)
[2021-12-07 10:11] LABS: Alanine Aminotransferase 13 U/L (0-33); Albumin Level 3.8 g/dL (3.5-5.2); Alkaline Phosphatase 104 IU/L (35-105); Anion Gap 13.3 (5-19); Aspartate Amino Transferase 20 U/L (0-32); Blood Urea Nitrogen 19 mg/dL (8-23); Calcium 8.8 mg/dL (8.5-10.5); Carbon Dioxide 26 mmol/L (22-29); Chloride 102 mmol/L (98-107); Globulin 2.4 g/dL (1.3-4.6); Glucose 96 mg/dL (65-115); Osmolality Calculated 286 mOsm/kg (285-295); Potassium 4.3 mmol/L (3.5-5.1); Sodium 137 mmol/L (136-145); Total Bilirubin 0.4 mg/dL (0.15-1.2); Total Protein 6.2 g/dL (6.6-8.7)
[2021-12-07 12:02] VITALS: BP 163/68; PULSE 62; RESP 18; TEMP 36.4; O2SAT 99
[2021-12-07] MEDS: cyanocobalamin 1,000 mcg/mL SDV 1000 MCG IM (12:11)
[2021-12-07 12:12] VITALS: BP 152/50; PULSE 58; RESP 18; TEMP 36.4; O2SAT 98
== END 2021-12-09 23:59 | disposition home or self-care (01) ==
PROVIDERS: PCP Nurse Practitioner Family; Visit Provider Internal Medicine Hematology & Oncology
DX: C83.39 Diffuse large B-cell lymphoma, extranodal and solid organ sites (principal); I82.813 Embolism and thrombosis of superficial veins of lower extremities, bilateral; Z79.01 Long term (current) use of anticoagulants; D64.9 Anemia, unspecified; E53.8 Deficiency of other specified B group vitamins
CPT/HCPCS: 36415; 80053; 85025; 96372; 96523; 99214; J3420

== ENCOUNTER 2022-01-05 11:40 | Oncology outpatient (recurring) (ONCR) | payer MEDICARE, SELFPAY | END 2022-01-09 23:59 | disposition home or self-care (01) | LOC: ONCMED 11:41 | PROVIDERS: PCP Nurse Practitioner Family; Visit Provider Internal Medicine Hematology & Oncology | DX: Z45.2 Encounter for adjustment and management of vascular access device (principal) | CPT/HCPCS: 96523 ==

== ENCOUNTER 2022-03-10 08:52 | Oncology outpatient (recurring) (ONCR) | payer MEDICARE, SELFPAY ==
[2022-03-10 09:19] LABS: Basophils % 0.4 %; Eosinophils # 0.1 10^3/uL (0.0-0.8); Eosinophils % 1.5 %; Hematocrit 36.2 % (37.0-47.0); Hemoglobin 11.5 g/dL (11.5-15.3); Lymphocytes # 1.1 10^3/uL (0.8-4.8); Lymphocytes % 22.4 %; Mean Corpuscular HGB Conc 31.8 g/dL (30.0-36.0); Mean Corpuscular Hemoglobin 30.6 pg (28.0-34.0); Mean Corpuscular Volume 96.3 fl (81-99); Mean Platelet Volume 9.2 fL (7.4-10.4); Monocytes # 0.5 10^3/uL (0.2-0.9); Monocytes % 10.1 %; Neutrophils % 65.4 %; Nucleated Red Blood Cells % 0 %; Platelet Count 205 10^3/cmm (130-400); Red Blood Count 3.76 10^6/uL (4.1-5.3); Red Cell Distribution Width 14.2 % (12.1-15.1); White Blood Count 4.7 10^3/uL (4.0-10.0)
[2022-03-10 10:17] LABS: Alanine Aminotransferase 16 U/L (0-33); Albumin Level 3.6 g/dL (3.5-5.2); Alkaline Phosphatase 111 U/L (35-105); Anion Gap 13.2 (5-19); Aspartate Amino Transferase 23 U/L (0-32); Blood Urea Nitrogen 16 mg/dL (8-23); Calcium 9.2 mg/dL (8.5-10.5); Carbon Dioxide 27 mmol/L (22-29); Chloride 104 mmol/L (98-107); Globulin 2.6 g/dL (1.3-4.6); Glucose 86 mg/dL (65-115); Lactate Dehydrogenase 204 U/L (135-214); Osmolality Calculated 290 mOsm/kg (285-295); Potassium 4.2 mmol/L (3.5-5.1); Sodium 140 mmol/L (136-145); Total Bilirubin 0.3 mg/dL (0.15-1.2); Total Protein 6.2 g/dL (6.6-8.7)
[2022-03-10 10:32] LABS: Vitamin B12 324 pg/mL (232-1245)
== END 2022-03-11 23:59 | disposition home or self-care (01) ==
PROVIDERS: PCP Nurse Practitioner Family; Visit Provider Internal Medicine Hematology & Oncology
DX: C83.39 Diffuse large B-cell lymphoma, extranodal and solid organ sites (principal); D64.9 Anemia, unspecified; E80.6 Other disorders of bilirubin metabolism; Z86.718 Personal history of other venous thrombosis and embolism; Z79.899 Other long term (current) drug therapy; Z92.21 Personal history of antineoplastic chemotherapy; Z92.25 Personal history of immunosuppression therapy
CPT/HCPCS: 36415; 80053; 82607; 83615; 85025; 96523; 99214

== ENCOUNTER 2022-04-01 09:25 | Emergency (ER) | payer MEDICARE, SELFPAY ==
[2022-04-01 09:28] VITALS: BP 166/84; PULSE 74; RESP 16; TEMP 36.6; O2SAT 97; BMI 24.0
[2022-04-01 09:33] VITALS: BP 166/84; PULSE 67; RESP 18; TEMP 37.1; O2SAT 97
--- NOTE | 2022-04-01 09:38 | ECG_ITS ---
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 Measurements Intervals [place] Rate: 65 P: 53 [place]: 152 QRS: -8 QRSD: 89 T: 12 QT: 421 QTc: 439 Interpretive Statements SINUS RHYTHM Compared to ECG 03/05/2018 18:22:07 No significant changes Electronically Signed On 04-01-2022 16:49:21 CDT by Alexandr Parry M.D. [email or web address] ([id number]
--- NOTE | 2022-04-01 09:38 | PC.NURSE ---
C/O in lower legs due to neuropathy
--- NOTE | 2022-04-01 09:41 | CTR_ITS ---
PROCEDURE INFORMATION: Exam: CT Cervical Spine Without Contrast Exam date and time: 04/01/2022 9:53 AM Age: 76 years old Clinical indication: Fall with blunt trauma. TECHNIQUE: Imaging protocol: Computed tomography of the cervical spine without contrast. Radiation optimization: All CT scans at this facility use at least one of these dose optimization techniques: automated exposure control; mA and/or kV adjustment per patient size (includes targeted exams where dose is matched to clinical indication); or iterative reconstruction. COMPARISON: CT cervical spin wo con* [id number] 03/27/2017 12:36 PM RADIATION DOSE METRICS: Total DLP (mGy-cm): 194.8 FINDINGS: Grade 1 anterolisthesis of C2 and C3. C4, C5 and C6 are fused. 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 Probable degenerative cyst in the right glenoid. No prevertebral soft tissue swelling is seen. Moderate degenerative disc disease is seen in the cervical spine. No acute fracture is identified. The atlantoaxial interval and craniocervical junction are maintained. Small, scattered cervical lymph nodes are noted. The lung apices are unremarkable. Probable incompletely visualized left port. CT/CT cervical spin wo con* [id number] IMPRESSION: 1. No acute cervical fracture. 2. Moderate degenerative disc disease is seen in the cervical spine.
--- NOTE | 2022-04-01 09:42 | CTR_ITS ---
PROCEDURE INFORMATION: Exam: CT Head Without Contrast Exam date and time: 04/01/2022 9:53 AM Age: 76 years old Clinical indication: Fall with blunt trauma and closed head injury. TECHNIQUE: Imaging protocol: Computed tomography of the head without contrast. Radiation optimization: All CT scans at this facility use at least one of these dose optimization techniques: automated exposure control; mA and/or kV adjustment per patient size (includes targeted exams where dose is matched to clinical indication); or iterative reconstruction. COMPARISON: CT head wo con* [id number] 03/05/2018 6:33 PM RADIATION DOSE METRICS: Total DLP (mGy-cm): 194.8 FINDINGS: Brain: No acute intracranial hemorrhage. No mass, mass effect or midline shift. There is mild patchy subcortical and periventricular hypodensity, most commonly associated with small vessel ischemic disease of indeterminate age. The posterior fossa is grossly unremarkable; however, it is partially obscurred by beam hardening artifact. Cerebral ventricles: The ventricles are normal in configuration. Paranasal sinuses: The visualized paranasal sinuses are clear. Mastoid air cells: No mastoid effusion. Orbital cavities: The visualized orbits are unremarkable. Bones/joints: No acute fracture is seen. Soft tissues: Small left frontal scalp/bridge of nose hematoma. Vasculature: There is no evidence of acute large vessel infarct. CT/CT head wo con* [id number] IMPRESSION: 1. Small left frontal scalp/bridge of nose hematoma. 2. Mild presumed small vessel ischemic disease of indeterminate age. 3. No acute intracranial hemorrhage.
[2022-04-01 09:57] LABS: Basophils % 0.4 %; Eosinophils # 0.1 10^3/uL (0.0-0.8); Hematocrit 37.1 % (37.0-47.0); Hemoglobin 12.3 g/dL (11.5-15.3); Lymphocytes # 0.9 10^3/uL (0.8-4.8); Lymphocytes % 12.4 %; Mean Corpuscular HGB Conc 33.2 g/dL (30.0-36.0); Mean Corpuscular Hemoglobin 31.4 pg (28.0-34.0); Mean Corpuscular Volume 94.6 fl (81-99); Mean Platelet Volume 9.6 fL (7.4-10.4); Monocytes # 0.6 10^3/uL (0.2-0.9); Monocytes % 8.1 %; Neutrophils # 5.35 10^3/uL (1.8-7.7); Neutrophils % 77.8 %; Nucleated Red Blood Cells % 0 %; Platelet Count 226 10^3/cmm (130-400); Red Blood Count 3.92 10^6/uL (4.1-5.3); Red Cell Distribution Width 13.8 % (12.1-15.1); White Blood Count 6.9 10^3/uL (4.0-10.0)
--- NOTE | 2022-04-01 10:08 | W.ED.FALL ---
HPI - Fall General: Chief Complaint: Fall Stated Complaint: dizziness, fall Time Seen by Provider: 04/01/22 09:41 Source: patient Mode of arrival: ambulatory History of Present Illness: 76-year-old female who presents to the emergency room with complaints of falling out of bed this morning she fell out of bed and hit her head on the nightstand. There is no loss of consciousness. Patient states that since she had chemotherapy several years ago for rectal cancer she has had peripheral neuropathy and balance problems it was quite a bit worse this morning. There was no prolonged downtime. She does some bruising on her face but states that not really what is bothering her. She has some arthritic pain in her hips particularly her right hip that is unchanged. MD complaint: fall Onset (ago): hour(s) Fall from: out of bed Fall witnessed: no Place fall occurred: home Loss of consciousness: None Prolonged down time: unclear Symptoms prior to fall: none Context: tripped/slipped (Rolled out of bed) Location of injury: face Quality: dull Associated symptoms-after fall: Denies abdominal pain, chest pain, confusion, difficulty walking, headache(s), hematuria, lightheadedness, neck pain, numbness, short of breath, vertigo or weakness Review of Systems Const: Denies: fever(s), chills, body aches, change in appetite, fatigue or malaise ENMT: Denies: throat pain, ear or mastoid pain, nasal discharge or nasal congestion Card: Denies: chest pain, palpitations, irregular heart rhythm or lightheadedness Resp: Denies: dyspnea, productive cough, non-productive cough or wheezing GI: Denies: abdominal pain, nausea or vomiting : Denies: hematuria Musc: Denies: neck pain Skin/Breast: Denies: rash or pruritus Neuro: Denies: headache(s), difficulty walking, vertigo or confusion PFS ED PFSH: Medical History Anemia Anxiety Arthritis Colon cancer Diffuse large b-cell lymphoma, extranodal and solid organ sites Environmental and seasonal allergies Essential hypertension Scoliosis (and kyphoscoliosis), idiopathic Surgical History Hx of cholecystectomy Hx of hernia repair Hx of total hysterectomy 1996 Family History Mother Diabetes Cancer ovarian, breast, Grandmother Diabetes Father Congestive heart failure Social History Smoking and tobacco status: never smoked Second hand smoke exposure: No Smoking risk assessment/counseling performed?: No Alcohol intake: never Desire information about alcohol rehabilitation?: No Counseling given: No Desire information about substance/drug rehabilitation?: No Counseling given: No Adopted: No Caregiver/support person: No Lives independently: Yes Household members: none Housing: House Marital status: / service: No Current occupational status: retired History of recent travel: No Current gender identity: Female Female Reproductive History: Date of last menstrual period: 09/03/20 Physical Exam Const: COMMON NORMALS: no acute distress GENERAL APPEARANCE: cooperative and comfortable ORIENTATION/CONSCIOUSNESS: Yes awake, Yes oriented to person, Yes oriented to place and Yes oriented to time HENMT: COMMON NORMALS: normocephalic, hearing grossly normal bilaterally, external ears normal, EAC's normal, TM's normal bilaterally, Normal nasal mucous membranes and turbinates present, moist oral mucous membranes and oropharynx normal HEAD & SCALP: normocephalic NOSE: Normal nasal mucous membranes and turbinates present EXTERNAL EAR: Yes external ears normal EXTERNAL AUDITORY CANAL: EAC's normal TYMPANIC MEMBRANE: TM's normal bilaterally OTHER: Small area of ecchymosis no deformity no bony crepitus superior and inferior orbital ridge is intact Eye: COMMON NORMALS: Equal, round and reactive pupils present, EOMs intact bilaterally, conjunctivae normal and no scleral icterus CONJUNCTIVA: Yes conjunctivae normal PUPIL: Yes Equal, round and reactive pupils present Neck/C-Spine: COMMON NORMALS: full ROM, no lymphadenopathy and supple Resp: COMMON NORMALS: normal respiratory effort, No retractions, No use of accessory muscles and clear to auscultation bilaterally AUSCULTATION: clear to auscultation bilaterally Cardio: COMMON NORMALS: regular rate, regular rhythm and No murmurs present (Cardio) RATE: regular rate RHYTHM: regular rhythm GI: COMMON NORMALS: Soft to palpation and No hepatosplenomegaly present AUSCULTATION: Yes normoactive bowel sounds PALPATION: Yes Soft to palpation, No Tenderness to palpation present (GI), No Guarding due to palpation present (GI) and Yes No hepatosplenomegaly present Extremity: COMMON NORMALS: normal to inspection, capillary refill normal, no clubbing, cyanosis or edema, no calf tenderness and no pedal edema Neuro: SENSORIUM/ORIENTATION: Yes oriented to person, Yes oriented to place and Yes oriented to time Skin: COMMON NORMALS: no rashes or lesions noted GENERAL SKIN EXAM: no rashes or lesions noted Course Vital Signs: Vital signs: Vital Signs Temperature 98.7 F 04/01/22 09:33 Pulse Rate 68 04/01/22 10:28 Respiratory Rate 20 H 04/01/22 10:28 Blood Pressure 142/81 04/01/22 12:51 Pulse Oximetry 94 04/01/22 10:28 Oxygen Delivery Me thod 04/01/22 10:28 MDM - Fall Medical Decision Making Labs and imaging unremarkable and head CT negative discharge home. Patient has known pre-existing peripheral neuropathy which still causes difficulty with falls which occur relatively frequently. She has some dizziness suggestive labyrinthitis which is new. Meclizine to use as needed Medical Records I reviewed the patient's medical records. Lab Data I reviewed the patient's lab results. : 04/01/22 09:45 04/01/22 09:45 Radiology Impressions Cervical Spine CT 04/01/22 09:41 IMPRESSION: 1. No acute cervical fracture. 2. Moderate degenerative disc disease is seen in the cervical spine. Head CT 04/01/22 09:42 IMPRESSION: 1. Small left frontal scalp/bridge of nose hematoma. 2. Mild presumed small vessel ischemic disease of indeterminate age. 3. No acute intracranial hemorrhage. Laboratory Results WBC 6.9 10^3/uL (4.0-10.0) 04/01/22 09:45 RBC 3.92 10^6/uL (4.1-5.3) L 04/01/22 09:45 Hgb 12.3 g/dL (11.5-15.3) 04/01/22 09:45 Hct 37.1 % (37.0-47.0) 04/01/22 09:45 MCV 94.6 fl (81-99) 04/01/22 09:45 MCH 31.4 pg (28.0-34.0) 04/01/22 09:45 MCHC 33.2 g/dL (30.0-36.0) 04/01/22 09:45 RDW 13.8 % (12.1-15.1) 04/01/22 09:45 Plt Count 226 10^3/cmm (130-400) 04/01/22 09:45 MPV 9.6 fL (7.4-10.4) 04/01/22 09:45 Neut % (Auto) 77.8 % 04/01/22 09:45 Lymph % (Auto) 12.4 % 04/01/22 09:45 Bonner % (Auto) 8.1 % 04/01/22 09:45 Eos % (Auto) 1.0 % 04/01/22 09:45 Baso % (Auto) 0.4 % 04/01/22 09:45 Neut # (Auto) 5.35 10^3/uL (1.8-7.7) 04/01/22 09:45 Lymph # (Auto) 0.9 10^3/uL (0.8-4.8) 04/01/22 09:45 Bonner # (Auto) 0.6 10^3/uL (0.2-0.9) 04/01/22 09:45 Eos # (Auto) 0.1 10^3/uL (0.0-0.8) 04/01/22 09:45 Baso # (Auto) 0.0 10^3/uL (0.0-0.1) 04/01/22 09:45 Nucleated RBC % (auto) 0 % 04/01/22 09:45 Nucleated RBCs # 0.0 /100WBC 04/01/22 09:45 Sodium 138 mmol/L (136-145) 04/01/22 09:45 Potassium 4.0 mmol/L (3.5-5.1) 04/01/22 09:45 Chloride 103 mmol/L (98-107) 04/01/22 09:45 Carbon Dioxide 24 mmol/L (22-29) 04/01/22 09:45 Anion Gap 15.0 (5-19) 04/01/22 09:45 BUN 18 mg/dL (8-23) 04/01/22 09:45 Creatinine 0.4 mg/dL (0.5-0.9) L 04/01/22 09:45 GFR Calculation Not Reportable 04/01/22 09:45 Glucose 95 mg/dL (65-115) 04/01/22 09:45 Calculated Osmolality 288 mOsm/kg (285-295) 04/01/22 09:45 Calcium 9.4 mg/dL (8.5-10.5) 04/01/22 09:45 Total Bilirubin 0.4 mg/dL (0.15-1.2) 04/01/22 09:45 AST 24 U/L (0-32) 04/01/22 09:45 ALT 18 U/L (0-33) 04/01/22 09:45 Alkaline Phosphatase 113 U/L (35-105) H 04/01/22 09:45 Total Protein 6.5 g/dL (6.6-8.7) L 04/01/22 09:45 Albumin 3.8 g/dL (3.5-5.2) 04/01/22 09:45 Globulin 2.7 g/dL (1.3-4.6) 04/01/22 09:45 Discharge Plan Discharge Patient Disposition: Home Clinical Impression: Labyrinthitis, Peripheral neuropathy, Fall Condition: Stable Prescriptions: New meclizine 25 mg tablet 25 mg PO QID PRN (Reason: dizziness) Qty: 20 0RF No Action aspirin [Adult Low Dose Aspirin] 81 mg tablet,delayed release (DR/EC) 81 mg PO DAILY loratadine [Claritin] 10 mg tablet 10 mg PO DAILY PRN (Reason: Allergy Symptoms) citalopram 10 mg tablet 10 mg PO DAILY Qty: 90 1RF acetaminophen [Tylenol Arthritis Pain] 650 mg tablet extended release 650 mg PO Q8H furosemide 20 mg tablet 20 mg PO DAILY Qty: 90 1RF Hold Instructions: Holding monitor potassium chloride 8 mEq capsule, extended release 8 meq PO DAILY Qty: 30 2RF Hold Instructions: Holding monitor BP and edema Rx Instructions: Take with Lasix cyanocobalamin (vitamin B-12) 1,000 mcg/mL solution 1,000 mcg SUBCUT .monthly Qty: 10 0RF Discharge Orders: Discharge ED (Routine); Ordered 04/01/22 Ordered By: Jose A Meredith Referrals: Alisa Garcia FNP-C [Primary Care Provider] - Patient Instructions: Opioid Safety, Pain Management Activity Restrictions/Additional Instructions: Follow-up with your primary care doctor if not improving. Coding Level of Care Code ED Field Operator for Sofi Wesley
[2022-04-01 10:24] LABS: Alanine Aminotransferase 18 U/L (0-33); Albumin Level 3.8 g/dL (3.5-5.2); Alkaline Phosphatase 113 U/L (35-105); Aspartate Amino Transferase 24 U/L (0-32); Blood Urea Nitrogen 18 mg/dL (8-23); Calcium 9.4 mg/dL (8.5-10.5); Carbon Dioxide 24 mmol/L (22-29); Chloride 103 mmol/L (98-107); Globulin 2.7 g/dL (1.3-4.6); Glucose 95 mg/dL (65-115); Osmolality Calculated 288 mOsm/kg (285-295); Sodium 138 mmol/L (136-145); Total Bilirubin 0.4 mg/dL (0.15-1.2); Total Protein 6.5 g/dL (6.6-8.7)
[2022-04-01 10:28] VITALS: BP 139/65; PULSE 68; RESP 20; O2SAT 94
[2022-04-01 11:24] VITALS: BP 139/90; BP 157/84; BP 172/107
[2022-04-01] MEDS: meclizine 25 mg tablet PO (11:52)
[2022-04-01 11:53] VITALS: BP 142/81
[2022-04-01 12:51] VITALS: BP 142/81
== END 2022-04-01 12:52 | disposition home or self-care (01) ==
PROVIDERS: Emergency Provider Family Medicine; PCP Nurse Practitioner Family
DX: H83.09 Labyrinthitis, unspecified ear (principal); G62.9 Polyneuropathy, unspecified; W06.XXXA Fall from bed, initial encounter; Z79.82 Long term (current) use of aspirin; Z85.038 Personal history of other malignant neoplasm of large intestine; Z85.72 Personal history of non-Hodgkin lymphomas; I10 Essential (primary) hypertension
CPT/HCPCS: 70450; 72125; 80053; 85025; 93005; 99285; J8597

== ENCOUNTER 2022-04-07 14:22 | Oncology outpatient (recurring) (ONCR) | payer MEDICARE, SELFPAY ==
[2022-04-07] MEDS: cyanocobalamin 1,000 mcg/mL SDV 1000 MCG IM (14:54)
== END 2022-04-11 23:59 | disposition home or self-care (01) ==
PROVIDERS: PCP Nurse Practitioner Family; Visit Provider Internal Medicine Hematology & Oncology
DX: Z79.899 Other long term (current) drug therapy (principal); C83.39 Diffuse large B-cell lymphoma, extranodal and solid organ sites
CPT/HCPCS: 96372; 96523; J3420

== ENCOUNTER 2022-05-09 13:54 | Oncology outpatient (recurring) (ONCR) | payer MEDICARE, SELFPAY ==
[2022-05-09 14:21] VITALS: BP 115/69; PULSE 71; RESP 18; TEMP 37; O2SAT 97
[2022-05-09] MEDS: alteplase 1 mg/mL SDV 2 mL 2 MG INTRACATH (14:32)
--- NOTE | 2022-05-09 15:33 | PC.NURSE ---
Patient refused B12 and states she is receiving at the [facility] tomorrow.
== END 2022-05-11 23:59 | disposition home or self-care (01) ==
PROVIDERS: PCP Nurse Practitioner Family; Visit Provider Internal Medicine Hematology & Oncology
DX: Z45.2 Encounter for adjustment and management of vascular access device (principal)
CPT/HCPCS: 36593; 96523; J2997

== ENCOUNTER 2022-06-09 09:49 | Oncology outpatient (recurring) (ONCR) | payer MEDICARE, SELFPAY ==
[2022-06-09 10:32] LABS: Basophils % 0.4 %; Eosinophils # 0.2 10^3/uL (0.0-0.8); Hematocrit 36.6 % (37.0-47.0); Lymphocytes # 1.6 10^3/uL (0.8-4.8); Lymphocytes % 27.2 %; Mean Corpuscular HGB Conc 32.8 g/dL (30.0-36.0); Mean Corpuscular Hemoglobin 30.7 pg (28.0-34.0); Mean Corpuscular Volume 93.6 fl (81-99); Mean Platelet Volume 8.9 fL (7.4-10.4); Monocytes # 0.5 10^3/uL (0.2-0.9); Monocytes % 8.8 %; Neutrophils # 3.44 10^3/uL (1.8-7.7); Neutrophils % 60.4 %; Nucleated Red Blood Cells % 0 %; Platelet Count 254 10^3/cmm (130-400); Red Blood Count 3.91 10^6/uL (4.1-5.3); Red Cell Distribution Width 13.4 % (12.1-15.1); White Blood Count 5.7 10^3/uL (4.0-10.0)
[2022-06-09 10:49] LABS: Alanine Aminotransferase 13 U/L (0-33); Albumin Level 3.6 g/dL (3.5-5.2); Alkaline Phosphatase 115 U/L (35-105); Anion Gap 11.5 (5-19); Aspartate Amino Transferase 20 U/L (0-32); Blood Urea Nitrogen 16 mg/dL (8-23); Calcium 9.5 mg/dL (8.5-10.5); Carbon Dioxide 27 mmol/L (22-29); Chloride 100 mmol/L (98-107); Globulin 2.7 g/dL (1.3-4.6); Glucose 74 mg/dL (65-115); Lactate Dehydrogenase 181 U/L (135-214); Osmolality Calculated 278 mOsm/kg (285-295); Potassium 4.5 mmol/L (3.5-5.1); Sodium 134 mmol/L (136-145); Total Bilirubin 0.2 mg/dL (0.15-1.2); Total Protein 6.3 g/dL (6.6-8.7)
[2022-06-09 11:27] LABS: Vitamin B12 > 2000 pg/mL (232-1245)
== END 2022-06-11 23:59 | disposition home or self-care (01) ==
PROVIDERS: PCP Nurse Practitioner Family; Visit Provider Internal Medicine Hematology & Oncology
DX: C83.39 Diffuse large B-cell lymphoma, extranodal and solid organ sites (principal); D64.9 Anemia, unspecified; E53.8 Deficiency of other specified B group vitamins; E80.6 Other disorders of bilirubin metabolism; G62.9 Polyneuropathy, unspecified
CPT/HCPCS: 36415; 80053; 82607; 83615; 85025; 96523; 99214

== ENCOUNTER 2022-06-12 06:00 | Outpatient (RCR) | payer MEDICARE, SELFPAY | END 2022-07-12 23:59 | disposition home or self-care (01) | LOC: SPT 06:00 | PROVIDERS: PCP Nurse Practitioner Family; Visit Provider Otolaryngology | DX: R42 Dizziness and giddiness (principal) | CPT/HCPCS: 97110; 97163 ==

== ENCOUNTER 2022-07-13 06:00 | Outpatient (RCR) | payer MEDICARE, SELFPAY | END 2022-08-09 23:59 | disposition home or self-care (01) | LOC: SPT 06:00 | PROVIDERS: PCP Nurse Practitioner Family; Visit Provider Otolaryngology | DX: R42 Dizziness and giddiness (principal) | CPT/HCPCS: 97110 ==

== ENCOUNTER 2022-08-10 06:00 | Outpatient (RCR) | payer MEDICARE, SELFPAY | END 2022-09-09 23:59 | disposition home or self-care (01) | LOC: SPT 06:00 | PROVIDERS: PCP Nurse Practitioner Family; Visit Provider Otolaryngology | DX: H81.10 Benign paroxysmal vertigo, unspecified ear (principal) | CPT/HCPCS: 97110; 97164 ==

== ENCOUNTER 2022-08-17 15:27 | Outpatient (CLI) | payer MEDICARE, SELFPAY ==
--- NOTE | 2022-08-17 17:00 | CT_ITS ---
WS: [id number] CT CHEST, ABDOMEN AND PELVIS WITH CONTRAST. HISTORY: Follow-up: Neoplasm and large B-cell lymphoma. TECHNIQUE: Contiguous 5 mm axial imaging performed through the chest, abdomen and pelvis with IV cont rast, oral contrast has been provided. Coronal and sagittal reformats chest. Coronal and sagittal ref ormats through the abdomen and pelvis. All CT scans at [facility] use at least one of these d ose optimization techniques: automated exposure control; mA and/or kV adjustment per patient size (in cludes targeted exams where dose is matched to clinical indication); or iterative reconstruction. CONTRAST: Omnipaque 350; 77 mL IV. DLP: 732.75 mGy.cm COMPARISON: 02/21/2021, PET/CT 07/10/[address]: Numerous bilateral, subcentimeter pulmonary nodules are identified. These nodules were not evident on the PET/CT of 07/10/2021. Majority of these nodules are pleural-based and subpleural. The l argest medial RIGHT lower lobe measures 9 mm. Mild atherosclerosis aorta. Normal size pulmonary arter y. Heart size is normal to slightly enlarged. No pericardial or pleural effusions. No mediastinal or hilar adenopathy. LEFT subclavian Port-A-Cath. Abdomen CT: No metastatic lesions identified within the liver. Prior cholecystectomy. Normal portal v ein. Common bile duct is dilated up to 15 mm but similar to the prior study from 02/21/2021. Normal si ze spleen. Normal renal enhancement. No adrenal mass. Heavy calcification within the aorta. No aneury sm. Heavy calcification at the origins of the celiac axis and SMA. Component of stenosis is likely es pecially involving the celiac axis. Stomach is mildly distended with oral contrast. No small bowel obstruction. Marked tortuosity of the colon. Numerous diverticula in the distal colon with constipation. No evidence for acute diverticulit is. Previously described rectal wall thickening has resolved. Urinary bladder prolapse. No adenopathy. Pelvic CT: Well-distended urinary bladder with prolapse. No adenopathy. Marked increase in the lumbar lordosis. L4 anterolisthesis by [address]/CT chest abdpel w/*[id number] IMPRESSION: 1. New multi lobar subcentimeter pulmonary nodules. The largest nodule measure s 9 mm in the medial RIGHT lower lobe. Metastatic nodules versus postinflammato ry nodules. 2. No adenopathy within the abdomen or pelvis identified. 3. Marked constipation and tortuous colon and sigmoid diverticulosis. 4. Previously described marked rectal wall thickening is no longer present. 5. Urinary bladder prolapse. 6. No ascites. 7. Prior cholecystectomy and physiologic common bile duct dilatation.
[2022-08-17 17:11] LABS: Blood Urea Nitrogen 14 mg/dL (8-23)
[2022-08-17] MEDS: iohexol 350 mg/mL 100 mL Btl PO (17:36)
[2022-08-17] MEDS: iohexol 350 mg/mL 100 mL Btl IV (17:36)
== END 2022-08-17 15:28 | disposition home or self-care (01) ==
PROVIDERS: PCP Nurse Practitioner Family; Visit Provider Internal Medicine Hematology & Oncology
DX: C18.9 Malignant neoplasm of colon, unspecified (principal); C83.39 Diffuse large B-cell lymphoma, extranodal and solid organ sites; R91.8 Other nonspecific abnormal finding of lung field; K59.00 Constipation, unspecified; K57.30 Diverticulosis of large intestine without perforation or abscess without bleeding; N81.10 Cystocele, unspecified; Z90.49 Acquired absence of other specified parts of digestive tract
CPT/HCPCS: 71260; 74177; 82565; 84520; Q9967

== ENCOUNTER 2022-08-30 07:46 | Oncology outpatient (recurring) (ONCR) | payer MEDICARE, SELFPAY ==
[2022-08-30 08:36] LABS: Basophils % 0.7 %; Eosinophils # 0.2 10^3/uL (0.0-0.8); Hematocrit 32.7 % (37.0-47.0); Hemoglobin 9.9 g/dL (11.5-15.3); Lymphocytes # 1.4 10^3/uL (0.8-4.8); Lymphocytes % 24.5 %; Mean Corpuscular HGB Conc 30.3 g/dL (30.0-36.0); Mean Corpuscular Hemoglobin 28.2 pg (28.0-34.0); Mean Corpuscular Volume 93.2 fl (81-99); Mean Platelet Volume 9.4 fL (7.4-10.4); Monocytes # 0.5 10^3/uL (0.2-0.9); Monocytes % 8.9 %; Neutrophils # 3.62 10^3/uL (1.8-7.7); Neutrophils % 62.7 %; Nucleated Red Blood Cells % 0 %; Platelet Count 211 10^3/cmm (130-400); Red Blood Count 3.51 10^6/uL (4.1-5.3); Red Cell Distribution Width 14.4 % (12.1-15.1); White Blood Count 5.8 10^3/uL (4.0-10.0)
[2022-08-30 08:59] LABS: Alanine Aminotransferase 11 U/L (0-33); Albumin Level 3.7 g/dL (3.5-5.2); Alkaline Phosphatase 107 U/L (35-105); Anion Gap 13.4 (5-19); Aspartate Amino Transferase 20 U/L (0-32); Blood Urea Nitrogen 13 mg/dL (8-23); Calcium 8.5 mg/dL (8.5-10.5); Carbon Dioxide 26 mmol/L (22-29); Chloride 104 mmol/L (98-107); Globulin 2.5 g/dL (1.3-4.6); Glucose 86 mg/dL (65-115); Lactate Dehydrogenase 230 U/L (135-214); Osmolality Calculated 287 mOsm/kg (285-295); Potassium 4.4 mmol/L (3.5-5.1); Sodium 139 mmol/L (136-145); Total Bilirubin 0.3 mg/dL (0.15-1.2); Total Protein 6.2 g/dL (6.6-8.7)
[2022-08-30 09:41] LABS: Vitamin B12 > 2000 pg/mL (232-1245)
[2022-08-30 11:25] LABS: Ferritin 23 ng/mL (15-150); Iron 51 ug/dL (37-145); Percent Saturation 14.4 % (20-50); Total Iron Binding Capacity 353 mcg/dl; Unsaturated Iron Binding 302 ug/dL (112-347)
== END 2022-09-09 23:59 | disposition home or self-care (01) ==
PROVIDERS: PCP Nurse Practitioner Family; Visit Provider Internal Medicine Hematology & Oncology
DX: C83.39 Diffuse large B-cell lymphoma, extranodal and solid organ sites (principal); M25.511 Pain in right shoulder; D64.9 Anemia, unspecified; Z95.828 Presence of other vascular implants and grafts; R91.1 Solitary pulmonary nodule
CPT/HCPCS: 80053; 82607; 82728; 83540; 83550; 83615; 85025; 99214

== ENCOUNTER 2022-09-10 06:00 | Outpatient (RCR) | payer MEDICARE, SELFPAY | END 2022-10-09 23:59 | disposition home or self-care (01) | LOC: SPT 06:00 | PROVIDERS: PCP Nurse Practitioner Family; Visit Provider Otolaryngology | DX: R42 Dizziness and giddiness (principal) | CPT/HCPCS: 97110; 97112 ==

== ENCOUNTER 2022-09-19 08:36 | Outpatient (CLI) | payer MEDICARE, SELFPAY ==
--- NOTE | 2022-09-19 08:39 | XR_ITS ---
WS: [id number] EXAMINATION: XR shoulder RT min 2V* [id number] REASON FOR EXAM: Pain/limited range of motion COMPARISON: None available. ORDER DATE: 09/19/2022 9:15 AM TECHNIQUE: 3 views of the right shoulder were obtained. X-RAY FINDINGS: No acute fractures or dislocations. There is old fracture deformity of the distal clavicle with numer ous small fragments some of which include the acromion process. There is complete obliteration of the subacromial compartment including remodeling of the humeral head which is displaced markedly cephala d. The glenohumeral joint is nearly obliterated with subchondral cysts in the glenoid process with th e humeral head only articulating with the upper half of the glenoid fossa.. Port-A-Cath tubing noted in the left brachiocephalic vein. XR/XR shoulder RT min 2V* [id number] IMPRESSION: Marked retraction of the humeral head with obliteration of the subacromial spac e and numerous old fracture deformities involving the AC joint and distal clavi woodrow as noted. Severe glenohumeral joint degenerative changes..
--- NOTE | 2022-09-19 09:11 | MM_ITS ---
WS: [id number] DIAGNOSTIC BILATERAL DIGITAL BREAST TOMOSYNTHESIS MAMMOGRAPHY WITH CAD HISTORY: RIGHT axillary pain. COMPARISON: 11/30/2018, 11/29/2017 TECHNIQUE: Bilateral craniocaudad, mediolateral oblique, and mediolateral views are submitted with to mosynthlila and SM. Computer aided detection utilized. Breast composition: There are scattered areas of fibroglandular density. Difficult obtaining the enti re RIGHT breast and pectoralis muscle due to shoulder pain and limited range of motion. There are luna ign scattered calcifications in each breast. MM/[place] [id number] IMPRESSION: BI-RADS: 2-Benign FOLLOW UP: 1 Year Follow-up
--- NOTE | 2022-09-19 10:45 | US_ITS ---
WS: [id number] ULTRASOUND SOFT TISSUES RIGHT axilla. HISTORY: Palpable area RIGHT axilla. COMPARISON: CT chest 09/06/2022 TECHNIQUE: 2-D and color Doppler imaging is submitted. Ultrasound is directed to the palpable area in the RIGHT axilla. No mass is identified. No significan t distortion of the soft tissues. No significant lymphadenopathy. I did review the prior chest CT from 08/27/2022. No abnormality is noted within the RIGHT axilla. Ther e is some mild soft tissue thickening surrounding the RIGHT shoulder. The entire shoulder is not incl uded but there are some cystic changes of the humeral head. US/US soft tissue/extremity [id number] IMPRESSION: 1. Negative ultrasound RIGHT axilla. 2. Review of the chest CT of 08/17/2022 demonstrates some fluid surrounding the RIGHT shoulder. This exam was not targeted to the RIGHT shoulder but partially included. This may be degenerative in etiology. If pain is localized to the samara ulder consider additional imaging such as MRI or CT shoulder to evaluate for ida ne destruction. Please note these findings were present on the prior PET/CT als o. Changes at the RIGHT shoulder may be chronic.
== END 2022-09-19 08:37 | disposition home or self-care (01) ==
LOC: RAD 08:37
PROVIDERS: PCP Nurse Practitioner Family; Visit Provider Internal Medicine Hematology & Oncology
DX: C83.39 Diffuse large B-cell lymphoma, extranodal and solid organ sites (principal); R59.0 Localized enlarged lymph nodes; M79.621 Pain in right upper arm; R92.1 Mammographic calcification found on diagnostic imaging of breast; M25.511 Pain in right shoulder
CPT/HCPCS: 73030; 76882; 77062; G0279

== ENCOUNTER → 2022-09-20 11:06 | Outpatient (BNVA) | payer MEDICARE, SELFPAY | PROVIDERS: PCP Nurse Practitioner Family; Visit Provider Nurse Practitioner Family | DX: D64.9 Anemia, unspecified (principal); C83.39 Diffuse large B-cell lymphoma, extranodal and solid organ sites; I10 Essential (primary) hypertension; Z13.6 Encounter for screening for cardiovascular disorders | CPT/HCPCS: 80053; 80061; 84443; 85025 ==

== ENCOUNTER 2022-10-10 06:00 | Outpatient (RCR) | payer MEDICARE, SELFPAY | END 2022-11-09 23:59 | disposition home or self-care (01) | LOC: SPT 06:00 | PROVIDERS: PCP Nurse Practitioner Family; Visit Provider Otolaryngology | DX: R42 Dizziness and giddiness (principal) | CPT/HCPCS: 97110; 97112; 97530 ==

== ENCOUNTER → 2022-10-17 14:35 | Outpatient (BNVA) | payer MEDICARE, SELFPAY | PROVIDERS: PCP Nurse Practitioner Family; Referring Provider Nurse Practitioner; Visit Provider Student in an Organized Health Care Education/Training Program | DX: M19.011 Primary osteoarthritis, right shoulder (principal) | CPT/HCPCS: 20610; 73030; 99204; J3301 ==

== ENCOUNTER 2022-11-04 09:32 | Oncology outpatient (recurring) (ONCR) | payer MEDICARE, SELFPAY ==
[2022-11-04 09:59] VITALS: BP 142/78; PULSE 67; RESP 16; TEMP 37.2; O2SAT 95
[2022-11-04 10:17] LABS: Basophils % 0.3 %; Eosinophils # 0.1 10^3/uL (0.0-0.8); Eosinophils % 1.6 %; Hematocrit 36.5 % (37.0-47.0); Hemoglobin 11.3 g/dL (11.5-15.3); Lymphocytes # 1.6 10^3/uL (0.8-4.8); Lymphocytes % 25.6 %; Mean Corpuscular Hemoglobin 28.8 pg (28.0-34.0); Mean Corpuscular Volume 93.1 fl (81-99); Mean Platelet Volume 9.3 fL (7.4-10.4); Monocytes # 0.6 10^3/uL (0.2-0.9); Monocytes % 9.8 %; Neutrophils # 3.89 10^3/uL (1.8-7.7); Neutrophils % 62.5 %; Nucleated Red Blood Cells % 0 %; Platelet Count 221 10^3/cmm (130-400); Red Blood Count 3.92 10^6/uL (4.1-5.3); Red Cell Distribution Width 16.1 % (12.1-15.1); White Blood Count 6.2 10^3/uL (4.0-10.0)
== END 2022-11-09 23:59 | disposition home or self-care (01) ==
PROVIDERS: PCP Nurse Practitioner Family; Visit Provider Internal Medicine Hematology & Oncology
DX: C83.39 Diffuse large B-cell lymphoma, extranodal and solid organ sites (principal); R91.1 Solitary pulmonary nodule; M25.511 Pain in right shoulder; D64.9 Anemia, unspecified; Z95.828 Presence of other vascular implants and grafts; Z45.2 Encounter for adjustment and management of vascular access device
CPT/HCPCS: 36415; 85025; 96523; 99213; J1642

== ENCOUNTER 2022-12-16 10:49 | Oncology outpatient (recurring) (ONCR) | payer MEDICARE, SELFPAY ==
[2022-12-16 12:25] VITALS: BP 146/79; PULSE 66; RESP 18; TEMP 36.7; O2SAT 99
== END 2023-01-09 23:59 | disposition home or self-care (01) ==
PROVIDERS: PCP Nurse Practitioner Family; Visit Provider Internal Medicine Hematology & Oncology
DX: Z45.2 Encounter for adjustment and management of vascular access device (principal)
CPT/HCPCS: 96523

== ENCOUNTER → 2023-01-23 14:48 | Outpatient (BNVA) | payer MEDICARE, SELFPAY | PROVIDERS: PCP Nurse Practitioner Family; Referring Provider Nurse Practitioner Family; Visit Provider Dermatology | DX: D36.11 Benign neoplasm of peripheral nerves and autonomic nervous system of face, head, and neck (principal); L82.1 Other seborrheic keratosis; L81.4 Other melanin hyperpigmentation; L72.0 Epidermal cyst; D23.5 Other benign neoplasm of skin of trunk; L57.0 Actinic keratosis | CPT/HCPCS: 17000; 17003; 99203 ==

== ENCOUNTER → 2023-01-24 12:50 | Outpatient (BNVA) | payer MEDICARE, SELFPAY | PROVIDERS: PCP Nurse Practitioner Family; Visit Provider Student in an Organized Health Care Education/Training Program | DX: M19.011 Primary osteoarthritis, right shoulder | CPT/HCPCS: 20610; 99213; J3301 ==

== ENCOUNTER 2023-01-27 10:43 | Oncology outpatient (recurring) (ONCR) | payer MEDICARE, SELFPAY ==
[2023-01-27 10:56] VITALS: BP 149/79; PULSE 71; RESP 17; TEMP 37; O2SAT 96
== END 2023-02-09 23:59 | disposition home or self-care (01) ==
LOC: ONCMED 10:44
PROVIDERS: PCP Nurse Practitioner Family; Visit Provider Internal Medicine Hematology & Oncology
DX: Z45.2 Encounter for adjustment and management of vascular access device
CPT/HCPCS: 96523; J1642

== ENCOUNTER 2023-02-06 09:16 | Outpatient (CLI) | payer MEDICARE, SELFPAY ==
[2023-02-06] MEDS: iohexol 350 mg/mL 500 mL Btl (per mL) PO (09:43)
--- NOTE | 2023-02-06 10:30 | CT_ITS ---
WS: [id number] CT CHEST, ABDOMEN, AND PELVIS TECHNIQUE: Contrast-enhanced CT of the chest, abdomen, and pelvis with coronal and sagittal reformatt ed images. CLINICAL INFORMATION: followup large b-cell lymphoma COMPARISON: 09/01 DLP: 720.[address] scans at [facility] use at least one of these dose optimization techniques: automated e xposure control; mA and/or kV adjustment per patient size (includes targeted exams where dose is matc hed to clinical indication); or iterative reconstruction. CT CHEST: Again seen are multiple subcentimeter pulmonary nodules within both lungs are unchanged from previous . There is a new pleural-based nodule LEFT lower lobe measuring 10 mm. Recommend 3-month chest CT fol low-up. This is new from previous. No other new suspicious pulmonary parenchymal abnormalities. No acute pulmonary infiltrates. Aortic c alcification. Coronary calcification. No mediastinal or hilar lymphadenopathy. No axillary lymphadeno jodi. Thoracic kyphosis. Osteopenia. CT ABDOMEN AND PELVIS: Diffuse fatty infiltration of the liver. Normal portal vein and splenic vein. Prior cholecystectomy. Physiologic dilatation of the common bile duct is unchanged. Normal spleen. Normal GE junction. Adren al glands are normal. Normal renal parenchyma enhancement. No hydronephrosis. Aortic calcification. N o lymphadenopathy in the abdomen or pelvis. Small bladder cystocele. Sigmoid diverticulosis. No evidence of acute diverticulitis. No pelvic or in guinal lymphadenopathy. Osteopenia. Postoperative changes lumbar spine are unchanged. Grade 2 anterol isthesis L4 on L5 is unchanged. IMPRESSION: 1. New pleural-based 10 mm pulmonary nodule LEFT lower lobe posteriorly. Recommend 3-month chest CT follow-up. 2. Additional previously described subcentimeter pulmonary nodules are stable. 3. No lymphadenopathy in the abdomen or pelvis. 4. Prior cholecystectomy with physiologic bile duct dilatation unchanged. 5. Sigmoid diverticulosis.
[2023-02-06 10:41] LABS: Blood Urea Nitrogen 10 mg/dL (8-23)
[2023-02-06] MEDS: iohexol 350 mg/mL 500 mL Btl (per mL) IV (10:47)
== END 2023-02-06 09:17 | disposition home or self-care (01) ==
PROVIDERS: PCP Nurse Practitioner Family; Visit Provider Nurse Practitioner Family
DX: C83.39 Diffuse large B-cell lymphoma, extranodal and solid organ sites (principal); R91.8 Other nonspecific abnormal finding of lung field; Z90.49 Acquired absence of other specified parts of digestive tract; K57.30 Diverticulosis of large intestine without perforation or abscess without bleeding
CPT/HCPCS: 71260; 74177; 82565; 84520; Q9967

== ENCOUNTER 2023-02-14 10:29 | Oncology outpatient (recurring) (ONCR) | payer MEDICARE, SELFPAY ==
[2023-02-14 11:20] LABS: Basophils % 0.6 %; Eosinophils # 0.1 10^3/uL (0.0-0.8); Eosinophils % 2.3 %; Hematocrit 37.8 % (36-47); Lymphocytes # 1.7 10^3/uL (0.8-4.8); Mean Corpuscular HGB Conc 31.5 g/dL (30-55); Mean Corpuscular Hemoglobin 30.2 pg (27-33); Mean Corpuscular Volume 95.9 fl (85-98); Monocytes # 0.5 10^3/uL (0.2-0.9); Monocytes % 9.5 %; Neutrophils # 2.86 10^3/uL (1.8-7.7); Neutrophils % 55.4 %; Nucleated Red Blood Cells % 0 %; Platelet Count 238 10^3/cmm (157-399); Red Blood Count 3.94 10^6/uL (3.85-5.65); Red Cell Distribution Width 13.8 % (12.1-15.1); White Blood Count 5.16 10^3/uL (3.29-11.43)
[2023-02-14 11:43] LABS: Alanine Aminotransferase 14 U/L (0-33); Albumin Level 3.9 g/dL (3.5-5.2); Alkaline Phosphatase 91 U/L (35-105); Anion Gap 13.4 (5-19); Aspartate Amino Transferase 24 U/L (0-32); Blood Urea Nitrogen 12 mg/dL (8-23); Carbon Dioxide 26 mmol/L (22-29); Chloride 101 mmol/L (98-107); Globulin 2.5 g/dL (1.3-4.6); Glucose 74 mg/dL (65-115); Lactate Dehydrogenase 204 U/L (135-214); Osmolality Calculated 280 mOsm/kg (285-295); Potassium 4.4 mmol/L (3.5-5.1); Sodium 136 mmol/L (136-145); Total Bilirubin 0.4 mg/dL (0.15-1.2); Total Protein 6.4 g/dL (6.6-8.7)
== END 2023-03-11 23:59 | disposition home or self-care (01) ==
PROVIDERS: Nurse Practitioner Family; PCP Nurse Practitioner Family; Visit Provider Internal Medicine Hematology & Oncology
DX: C83.39 Diffuse large B-cell lymphoma, extranodal and solid organ sites (principal); R91.1 Solitary pulmonary nodule; M25.511 Pain in right shoulder; D64.9 Anemia, unspecified; Z95.828 Presence of other vascular implants and grafts; Z45.2 Encounter for adjustment and management of vascular access device
CPT/HCPCS: 36415; 80053; 83615; 85025; 99214; J1642

== ENCOUNTER 2023-03-28 16:13 | Outpatient (CLI) | payer MEDICARE, SELFPAY ==
--- NOTE | 2023-03-28 09:55 | PETR_ITS ---
PROCEDURE INFORMATION: Exam: PET/CT Whole Body Exam date and time: 03/28/2023 11:38 AM Age: 77 years old Clinical indication: Condition or disease; Primary cancer: Diffuse large b cell lymphoma; Follow-up oncological assessment; Prior surgery; Surgery date: 6+ months; Surgery type: Port, gb, hernia, hyst; Additional info: Follow up, hal LABS AND CLINICAL REPORTS: Glucose: 92 mg/dl Treatment strategy for malignancy (PET staging): Restaging (PS) TECHNIQUE: Imaging protocol: Following at least four-hour fasting and following the injection of radiopharmaceutical, low dose CT images were obtained. Then, PET images were obtained. Attenuation corrected images were constructed using the CT scan. Fused images of PET and CT were reviewed. The standardized uptake values (SUV) reported below are maximum values within a region of interest, expressed in gm/ml. Exam includes the whole body. Radiopharmaceutical: 10.86 mCi F-18 FDG (Fluorodeoxyglucose), IV. Time of imaging post radiopharmaceutical administration: 1 hour Injection site: Right AC COMPARISON: 1. PT PET Scan 07/10/2021 10:[address] chest abdomen pelvis from 02/06/[address] chest abdomen pelvis from 08/17/2022 4. PET scan from 03/27/2021 FINDINGS: Tubes, catheters and devices: Left-sided Port-A-Cath terminates in the left brachiocephalic vein. Brain: Visualized brain has normal physiologic uptake. Pharynx: No abnormal uptake. Larynx: No abnormal uptake. Lungs, pleura and trachea: Calcified granuloma in the lingula. Slightly decreased size of an 8 mm left lower lobe pulmonary nodule, previously 1 cm. This does not appear to have any associated FDG activity. Similar small nodules in the anti dependent lungs bilaterally without associated FDG uptake, though these may be below PET resolution. Heart: Normal physiologic uptake. Mediastinal space: No abnormal uptake. Liver: No abnormal uptake. Gallbladder and bile ducts: Cholecystectomy. Pancreas: No abnormal uptake. Spleen: No abnormal uptake. Adrenal glands: No abnormal uptake. Kidneys and ureters: Normal physiologic uptake. Stomach and bowel: Colonic diverticulosis without evidence of diverticulitis. No bowel obstruction. Duodenal diverticulum. Reproductive: Hysterectomy. Vasculature: No abnormal uptake. Lymph nodes: There is mild FDG uptake associated with a 1 cm right hilar lymph node with SUV max 2.6 on image 127. This appears unchanged since at least 03/27/2021. Bones/joints: Degenerative FDG uptake is seen about the shoulders, knees and left sternoclavicular joint. Cystic changes in the bilateral medial femoral condyles without associated FDG uptake may reflect degenerative change. Soft tissues: No abnormal uptake in the visualized head, neck, chest, abdomen, pelvis, and extremities. PET/PET WB melanoma SUBSEQ [id number] IMPRESSION: No definite FDG avid disease ([place] 1). Slightly decreased size of an 8 mm left lower lobe pulmonary nodule, previously 1 cm. This does not appear to have any associated FDG activity.
== END 2023-03-28 16:14 | disposition home or self-care (01) ==
LOC: RAD 16:13
PROVIDERS: PCP Nurse Practitioner Family; Visit Provider Internal Medicine Medical Oncology
DX: C83.39 Diffuse large B-cell lymphoma, extranodal and solid organ sites (principal); R91.1 Solitary pulmonary nodule
CPT/HCPCS: 78816; A9552

== ENCOUNTER 2023-04-10 14:49 | Oncology outpatient (recurring) (ONCR) | payer MEDICARE, BC, SELFPAY ==
[2023-04-10 15:10] VITALS: BP 142/81; PULSE 77; RESP 18; TEMP 36.3; O2SAT 97
== END 2023-04-11 23:59 | disposition home or self-care (01) ==
PROVIDERS: PCP Nurse Practitioner Family; Visit Provider Internal Medicine Hematology & Oncology
DX: Z45.2 Encounter for adjustment and management of vascular access device (principal)
CPT/HCPCS: 96523; J1642

== ENCOUNTER → 2023-04-25 12:49 | Outpatient (BNVA) | payer MEDICARE, SELFPAY | PROVIDERS: PCP Nurse Practitioner Family; Visit Provider Physician Assistant | DX: M19.011 Primary osteoarthritis, right shoulder (principal) | CPT/HCPCS: 20610; 99213; J3301 ==

== ENCOUNTER 2023-05-10 12:45 | Oncology outpatient (recurring) (ONCR) | payer MEDICARE, SELFPAY ==
[2023-05-10 13:04] VITALS: BP 151/80; PULSE 73; RESP 16; TEMP 36.9; O2SAT 94
== END 2023-05-11 23:59 | disposition home or self-care (01) ==
LOC: ONCMED 12:46
PROVIDERS: PCP Nurse Practitioner Family; Visit Provider Internal Medicine Hematology & Oncology
DX: Z45.2 Encounter for adjustment and management of vascular access device
CPT/HCPCS: 96523; J1642

== ENCOUNTER 2023-06-08 13:16 | Outpatient (CLI) | payer MEDICARE, SELFPAY ==
[2023-06-08] MEDS: iohexol 350 mg/mL 500 mL Btl (per mL) PO (14:27)
--- NOTE | 2023-06-08 14:30 | CTR_ITS ---
PROCEDURE INFORMATION: Exam: CT Chest With Contrast; Diagnostic Exam date and time: 06/08/2023 2:32 PM Age: 77 years old Clinical indication: Condition or disease; Other: Lymphoma; Prior surgery; Surgery date: 6+ months; Surgery type: Port, gb, hyst, hernia; Additional info: Follow up TECHNIQUE: Imaging protocol: Diagnostic computed tomography of the chest with contrast. Radiation optimization: All CT scans at this facility use at least one of these dose optimization techniques: automated exposure control; mA and/or kV adjustment per patient size (includes targeted exams where dose is matched to clinical indication); or iterative reconstruction. Contrast material: OMNI 350; Contrast volume: 95 ml; Contrast route: INTRAVENOUS (IV); REPORTING DATA: Count of CT and Cardiac NM exams in prior 12 months: This patient has received 3 known CTs and 0 known cardiac nuclear medicine studies in the 12 months prior to the current study. COMPARISON: CT chest abdomen pelvis of 02/06/2023. RADIATION DOSE METRICS: Total DLP (mGy-cm): 787.77 FINDINGS: Lungs: imaged portions of the distal trachea, as well as right and left mainstem bronchi are patent. A peripheral pleural-based left lower lobe nodule of 10 mm size noted on prior study, is no longer apparent. A 2 mm left lingular nodule (series 4, image 24) is newly demonstrated from previous of 02/06/2023 and 03/28/2023.. However multiple other peripheral nodules within the upper lobes residing anteromedially, appear stable. There is a stable calcified nodule in the left lung. Stable medial right lower lobe nodule (0442.1 Pleural spaces: No pleural effusion. Heart: The heart is not enlarged. There is no pericardial effusion demonstrated. Lymph nodes: No mediastinal or hilar adenopathy identified. No axillary adenopathy identified. Vasculature: The ascending aorta is not significantly dilated measuring 3.8 cm diameter the proximal descending aorta is dilated at 3.2 cm diameter. atherosclerosis present in the thoracic aorta. There is enlargement of the main pulmonary artery, a finding which may be associated with pulmonary hypertension. Bones/joints: Findings suggest left subclavian venous stenosis external to the ribcage. Skeletal windows demonstrate multifocal degenerative changes. This is particularly prominent in the right glenohumeral joint. No acute osseous abnormality evident. Soft tissues: No acute abnormality identified. Partial atrophy of the right shoulder musculature. PROCEDURE INFORMATION: Exam: CT Abdomen And Pelvis With Contrast Exam date and time: 06/08/2023 2:32 PM Age: 77 years old Clinical indication: Condition or disease; Other: Lymphoma; Prior surgery; Surgery date: 6+ months; Surgery type: Port, gb, hyst, hernia; Additional info: Follow up TECHNIQUE: Imaging protocol: Computed tomography of the abdomen and pelvis with contrast. Radiation optimization: All CT scans at this facility use at least one of these dose optimization techniques: automated exposure control; mA and/or kV adjustment per patient size (includes targeted exams where dose is matched to clinical indication); or iterative reconstruction. Contrast material: OMNI 350; Contrast volume: 95 ml; Contrast route: INTRAVENOUS (IV); REPORTING DATA: Count of CT and Cardiac NM exams in prior 12 months: This patient has received 3 known CTs and 0 known cardiac nuclear medicine studies in the 12 months prior to the current study. COMPARISON: PT PET WB melanoma SUBSEQ [id number] 03/28/2023 11:38 AM RADIATION DOSE METRICS: Total DLP (mGy-cm): 787.77 FINDINGS: Lungs: Imaged portions of the lung bases demonstrate minimal scarring and/or atelectasis. Liver: A subcentimeter hypodensity is present posteriorly in the right hepatic lobe (0522) unchanged, too small to fully characterize but most likely a cyst. Gallbladder and bile ducts: The patient is status post cholecystectomy. The extrahepatic bile duct measures 15 mm diameter. Although this may reflect reservoir effect, prominence of the intrahepatic bile ducts is noted, please correlate for evidence of biliary obstruction. However the appearance is stable from prior and therefore favored nonobstructive. Pancreas: Mild pancreatic atrophy without pancreatic ductal dilatation is identified. Spleen: Unremarkable. Adrenal glands: Not enlarged. Kidneys and ureters: No hydronephrosis of either kidney. There is a right renal hypodensity, too small to fully characterize, but statistically most likely a small cyst. . Otherwise the kidneys appear unremarkable as visualized. Stomach and bowel: No bowel obstruction identified. No bowel wall thickening noted, within the limits of the examination. Colonic diverticulosis is demonstrated, without secondary evidence of acute diverticulitis. Appendix: No acute inflammatory change of the appendix identified. Intraperitoneal space: No significant volume of free fluid identified. No ascites. Vasculature: No abdominal aortic aneurysm identified. Lymph nodes: No adenopathy identified. Urinary bladder: Deformity of the floor of the urinary bladder consistent with a cystocele is present. A 2 mm calcification is demonstrated immediately adjacent to the posterior wall of the inferior urinary bladder which may represent a small bladder calculus, although the possibility of dystrophic calcification as could occur in a neoplasm is not completely excluded. Follow-up evaluation with cystoscopy could be considered. Reproductive: Patient is status post hysterectomy. Bones/joints: Hardware related to a posterior fusion at L3-L4-L5 is present. . Skeletal windows demonstrate multilevel degenerative changes. Grade 2 anterolisthesis of L4 on L5 is similar to previous. The vertebra at the fused levels appear osteopenic as do the remainder of the skeletal structures. Soft tissues: No acute subcutaneous abnormality identified. CT/CT chest abdpel w/*[id number] IMPRESSION: 1. A pleural-based left lower lobe 10 mm nodule previously noted 02/06/2023, appears to have resolved. 2. A 2 mm left lingular nodule is newly demonstrated, however multiple other peripheral nodules residing anteriorly within the bilateral upper lobes appear stable. Stable medial right lower lobe nodule. 3. No thoracic adenopathy identified 4. 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 No obvious obstructive mass. IMPRESSION: 1. No abdominopelvic adenopathy identified. 2. Bladder cystocele. Approximately 2 mm dependent calcification in the bladder, favored to represent a small bladder calculus, although dystrophic calcification as could occur in the neoplasm is not completely excluded. If clinically indicated, a noncontrast CT of the pelvis with the patient in prone positioning could be obtained to assess for mobility of the calcification, in order to differentiate between calculus and dystrophic calcification. Otherwise cystoscopy could be considered. 3. Diverticulosis without secondary evidence of acute diverticulitis. 4. Stable biliary ductal dilatation, favored related to reservoir effect in the setting of prior cholecystectomy but please correlate for any evidence of obstruction. Please see above additional comments. COMMENTS: Consistent with the [employer]'s Incidental Findings Committee white paper (J Am Benny Radiol 2018): Any incidental renal lesion less than 1 cm or classified as too small to characterize, or any incidental cystic renal lesion characterized as simple-appearing, is likely benign. No follow-up imaging is recommended for these lesions per consensus recommendations based on imaging criteria.
[2023-06-08 14:41] LABS: Blood Urea Nitrogen 11 mg/dL (8-23)
[2023-06-08] MEDS: iohexol 350 mg/mL 500 mL Btl (per mL) IV (14:42)
== END 2023-06-08 13:17 | disposition home or self-care (01) ==
LOC: RAD 13:16
PROVIDERS: PCP Nurse Practitioner Family; Visit Provider Nurse Practitioner Family
DX: C83.39 Diffuse large B-cell lymphoma, extranodal and solid organ sites (principal); R91.8 Other nonspecific abnormal finding of lung field; N81.10 Cystocele, unspecified; K57.90 Diverticulosis of intestine, part unspecified, without perforation or abscess without bleeding; Z45.2 Encounter for adjustment and management of vascular access device
CPT/HCPCS: 71260; 74177; 82565; 84520; Q9967

== ENCOUNTER 2023-06-08 14:45 | Oncology outpatient (recurring) (ONCR) | payer MEDICARE, SELFPAY | END 2023-06-11 23:59 | disposition home or self-care (01) | LOC: ONCMED 14:45 | PROVIDERS: PCP Nurse Practitioner Family; Visit Provider Internal Medicine Hematology & Oncology | DX: Z45.2 Encounter for adjustment and management of vascular access device | CPT/HCPCS: 71260; 74177; 82565; 84520; J1642; Q9967 ==

== ENCOUNTER 2023-06-14 08:03 | Oncology outpatient (recurring) (ONCR) | payer MEDICARE, SELFPAY ==
[2023-06-14 10:00] LABS: Basophils % 0.4 %; Eosinophils # 0.1 10^3/uL (0.0-0.8); Eosinophils % 2.4 %; Hematocrit 39.4 % (36-47); Lymphocytes # 1.5 10^3/uL (0.8-4.8); Lymphocytes % 27.4 %; Mean Corpuscular HGB Conc 32.2 g/dL (30-55); Mean Corpuscular Hemoglobin 30.8 pg (27-33); Mean Corpuscular Volume 95.6 fl (85-98); Mean Platelet Volume 9.3 fL (7.4-10.4); Monocytes # 0.5 10^3/uL (0.2-0.9); Neutrophils # 3.24 10^3/uL (1.8-7.7); Neutrophils % 60.4 %; Nucleated Red Blood Cells % 0 %; Platelet Count 240 10^3/cmm (157-399); Red Blood Count 4.12 10^6/uL (3.85-5.65); Red Cell Distribution Width 13.5 % (12.1-15.1); White Blood Count 5.36 10^3/uL (3.29-11.43)
[2023-06-14 10:20] LABS: Alanine Aminotransferase 15 U/L (0-33); Albumin Level 3.9 g/dL (3.5-5.2); Alkaline Phosphatase 111 U/L (35-105); Aspartate Amino Transferase 26 U/L (0-32); Blood Urea Nitrogen 12 mg/dL (8-23); Calcium 9.2 mg/dL (8.5-10.5); Carbon Dioxide 28 mmol/L (22-29); Chloride 101 mmol/L (98-107); Globulin 3.1 g/dL (1.3-4.6); Glucose 91 mg/dL (65-115); Lactate Dehydrogenase 231 U/L (135-214); Osmolality Calculated 283 mOsm/kg (285-295); Sodium 137 mmol/L (136-145); Total Bilirubin 0.3 mg/dL (0.15-1.2)
== END 2023-07-12 23:59 | disposition home or self-care (01) ==
PROVIDERS: Internal Medicine; PCP Nurse Practitioner Family; Visit Provider Internal Medicine Medical Oncology
DX: C83.39 Diffuse large B-cell lymphoma, extranodal and solid organ sites (principal); R91.1 Solitary pulmonary nodule; M25.511 Pain in right shoulder; D64.9 Anemia, unspecified; Z95.828 Presence of other vascular implants and grafts; Z45.2 Encounter for adjustment and management of vascular access device
CPT/HCPCS: 36415; 80053; 83615; 85025; 99214

== ENCOUNTER → 2023-07-20 12:14 | Outpatient (BNVA) | payer MEDICARE, SELFPAY | PROVIDERS: PCP Nurse Practitioner Family; Visit Provider Surgery | DX: Z95.828 Presence of other vascular implants and grafts (principal); C83.39 Diffuse large B-cell lymphoma, extranodal and solid organ sites; D64.9 Anemia, unspecified | CPT/HCPCS: 99204 ==

== ENCOUNTER → 2023-07-28 09:50 | Outpatient (BNVA) | payer MEDICARE, SELFPAY | PROVIDERS: PCP Nurse Practitioner Family; Visit Provider Surgery | DX: Z95.828 Presence of other vascular implants and grafts (principal) | CPT/HCPCS: 36590; 99214 ==

== ENCOUNTER → 2023-08-22 10:58 | Outpatient (BNVA) | payer MEDICARE, SELFPAY | PROVIDERS: PCP Nurse Practitioner Family; Visit Provider Nurse Practitioner Family | DX: I10 Essential (primary) hypertension (principal); D64.9 Anemia, unspecified; E53.8 Deficiency of other specified B group vitamins; E55.9 Vitamin D deficiency, unspecified | CPT/HCPCS: 80053; 80061; 82306; 82607; 84443; 85025 ==

== ENCOUNTER → 2023-09-08 08:20 | Outpatient (BNVA) | payer MEDICARE, SELFPAY | PROVIDERS: PCP Nurse Practitioner Family; Visit Provider Student in an Organized Health Care Education/Training Program | DX: M19.011 Primary osteoarthritis, right shoulder | CPT/HCPCS: 20610; 77002; 99213; J3301 ==

== ENCOUNTER 2023-12-29 11:27 | Oncology outpatient (recurring) (ONCR) | payer MEDICARE, SELFPAY ==
[2023-12-19 11:09] LABS: Basophils % 0.3 %; Eosinophils # 0.1 10^3/uL (0.0-0.8); Eosinophils % 1.5 %; Hematocrit 40.7 % (36-47); Lymphocytes % 30.2 %; Mean Corpuscular HGB Conc 32.7 g/dL (30-55); Mean Corpuscular Hemoglobin 30.9 pg (27-33); Mean Corpuscular Volume 94.4 fl (85-98); Mean Platelet Volume 9.2 fL (7.4-10.4); Monocytes # 0.6 10^3/uL (0.2-0.9); Monocytes % 8.6 %; Neutrophils # 3.83 10^3/uL (1.8-7.7); Neutrophils % 59.1 %; Nucleated Red Blood Cells % 0 %; Platelet Count 230 10^3/cmm (157-399); Red Blood Count 4.31 10^6/uL (3.85-5.65); Red Cell Distribution Width 13.3 % (12.1-15.1); White Blood Count 6.49 10^3/uL (3.29-11.43)
[2023-12-19 11:28] LABS: Alanine Aminotransferase 13 U/L (0-33); Albumin Level 4.1 g/dL (3.5-5.2); Alkaline Phosphatase 104 U/L (35-105); Aspartate Amino Transferase 23 U/L (0-32); Blood Urea Nitrogen 12 mg/dL (8-23); Calcium 9.3 mg/dL (8.5-10.5); Carbon Dioxide 25 mmol/L (22-29); Chloride 106 mmol/L (98-107); Globulin 2.8 g/dL (1.3-4.6); Glucose 94 mg/dL (65-115); Lactate Dehydrogenase 235 U/L (135-214); Osmolality Calculated 298 mOsm/kg (285-295); Sodium 144 mmol/L (136-145); Total Bilirubin 0.4 mg/dL (0.15-1.2); Total Protein 6.9 g/dL (6.6-8.7)
--- NOTE | 2023-12-29 12:30 | CTR_ITS ---
PROCEDURE INFORMATION: Exam: CT Chest With Contrast; Diagnostic Exam date and time: 12/29/2023 12:43 PM Age: 78 years old Clinical indication: Condition or disease; Other: Lymphoma; Prior surgery; Surgery date: 6+ months; Surgery type: Gb, hernia, lumbar; Additional info: History of lymphoma, left lung nodule TECHNIQUE: Imaging protocol: Diagnostic computed tomography of the chest with contrast. Radiation optimization: All CT scans at this facility use at least one of these dose optimization techniques: automated exposure control; mA and/or kV adjustment per patient size (includes targeted exams where dose is matched to clinical indication); or iterative reconstruction. Contrast material: OMNI 350; Contrast volume: 100 ml; Contrast route: INTRAVENOUS (IV); COMPARISON: CT chest abdpel w/*[id number] 06/08/2023 2:32 PM RADIATION DOSE METRICS: Total DLP (mGy-cm): 762.18 FINDINGS: Lungs: There are several tiny pleural-based nodules involving the upper lobes bilaterally. The largest nodule measures about 8 mm in diameter. A calcified granuloma is noted in the left upper lobe. No other lung nodule or infiltrate noted. Pleural spaces: Unremarkable. No pneumothorax. No pleural effusion. Heart: Unremarkable. No cardiomegaly. No pericardial effusion. Lymph nodes: Unremarkable. No enlarged lymph nodes. Vasculature: Unremarkable. No aortic aneurysm. Bones/joints: Unremarkable. No acute fracture. Soft tissues: Unremarkable. PROCEDURE INFORMATION: Exam: CT Abdomen And Pelvis With Contrast Exam date and time: 12/29/2023 12:43 PM Age: 78 years old Clinical indication: Condition or disease; Other: Lymphoma; Prior surgery; Surgery date: 6+ months; Surgery type: Gb, hernia, lumbar; Additional info: History of lymphoma, left lung nodule TECHNIQUE: Imaging protocol: Computed tomography of the abdomen and pelvis with contrast. Radiation optimization: All CT scans at this facility use at least one of these dose optimization techniques: automated exposure control; mA and/or kV adjustment per patient size (includes targeted exams where dose is matched to clinical indication); or iterative reconstruction. Contrast material: OMNI 350; Contrast volume: 100 ml; Contrast route: INTRAVENOUS (IV); COMPARISON: CT chest abdpel w/*[id number] 06/08/2023 2:32 PM RADIATION DOSE METRICS: Total DLP (mGy-cm): 762.18 FINDINGS: Lungs: Lung bases are clear. No pleural effusion. Liver: Normal. No mass. Gallbladder and biliary ducts: The gallbladder has been resected. Pancreas: Normal. No ductal dilation. Spleen: Normal. No splenomegaly. Adrenal glands: Normal. No mass. Kidneys and ureters: Normal. No hydronephrosis. Stomach and bowel: Multiple diverticula involve the sigmoid colon. There is no sign of diverticulitis. Appendix: No evidence of appendicitis. Intraperitoneal space: Unremarkable. No free air. No significant fluid collection. Vasculature: Unremarkable. No abdominal aortic aneurysm. Lymph nodes: Unremarkable. No enlarged lymph nodes. Urinary bladder: Unremarkable as visualized. Reproductive: Unremarkable as visualized. Bones/joints: Metallic surgical hardware can be seen in the lumbar spine. Soft tissues: Unremarkable. CT/CT chest abdpel w/*[id number] IMPRESSION: 1. There is no evidence of active neoplastic disease. 2. Stable lung nodules IMPRESSION: 1. There is no evidence of active neoplastic disease. 2. Sigmoid diverticulosis
[2023-12-29] MEDS: iohexol 350 mg/mL 500 mL Btl (per mL) IV (13:01)
[2023-12-29] MEDS: iohexol 350 mg/mL 500 mL Btl (per mL) PO (13:02)
== END 2024-01-10 23:59 | disposition home or self-care (01) ==
LOC: RAD 11:27 → ONCMED 01-08 11:27
PROVIDERS: Internal Medicine; PCP Nurse Practitioner Family; Visit Provider Nurse Practitioner Family
DX: C83.39 Diffuse large B-cell lymphoma, extranodal and solid organ sites; Z79.899 Other long term (current) drug therapy
CPT/HCPCS: 36415; 71260; 74177; 80053; 83615; 85025; 99214; Q9967

== ENCOUNTER → 2024-08-05 11:07 | Outpatient (BNVA) | payer MEDICARE, SELFPAY | PROVIDERS: PCP Nurse Practitioner Family; Visit Provider Nurse Practitioner | DX: I10 Essential (primary) hypertension (principal); J40 Bronchitis, not specified as acute or chronic; J32.9 Chronic sinusitis, unspecified | CPT/HCPCS: 71046; 80053; 80061; 85025; 87400; 87426 ==

== ENCOUNTER 2024-08-09 05:56 | Emergency (ER) | payer MEDICARE, SELFPAY ==
[2024-08-09 05:57] VITALS: BP 156/83; PULSE 76; RESP 18; TEMP 36.8; O2SAT 99; BMI 24.7
--- NOTE | 2024-08-09 06:02 | XRR_ITS ---
PROCEDURE INFORMATION: Exam: XR Chest Exam date and time: 08/09/2024 6:15 AM Age: 79 years old Clinical indication: Cough and dyspnea; Additional info: Dyspnea/cough TECHNIQUE: Imaging protocol: Radiologic exam of the chest. Views: 1 view. COMPARISON: CR XR chest 2V* [id number] 08/05/2024 11:06 AM FINDINGS: Lungs: Calcified granuloma in the left lower lung zone. No consolidation. Pleural spaces: Unremarkable. No pleural effusion. No pneumothorax. Heart/Mediastinum: Unremarkable. No cardiomegaly. Bones/joints: Unremarkable. XR/XR chest 1V portable [id number] IMPRESSION: No acute cardiopulmonary process.
--- NOTE | 2024-08-09 06:17 | ED_ITS ---
HPI - SOB/Dyspnea 2 General: Chief Complaint: Shortness of Breath/Dyspnea Stated Complaint: SOB Time Seen by Provider: 08/09/24 06:02 History of Present Illness: HPI Narrative: 71-year-old female presents plaint of sh ortness of breath. She is hyperventilating on arrival is extremely anxious. She acknowledges the fact that she is hyperventilating. She was seen earlier in the week thought to have a sinusitis and bronchitis started on antibiotics and budesonide nebulizers. She denies any fever sweats chills no hemoptysis no chest or abdominal pain Associated symptoms: Deny abdominal pain, chest pain or fever(s) Related Data Home Medications ?Medication ?Instructions ?Recorded ?Confirmed acetaminophen 650 mg 650 mg PO DAILY PRN Pain 08/09/24 tablet,extended release (Tylenol Arthritis Pain) Previous Rx's ?Medication ?Instructions ?Recorded albuterol sulfate 2.5 mg/3 mL 2.5 mg (3 mL) inhalation Q4H PRN 08/05/24 (0.083 %) solution for nebulization shortness of breat h or wheezing #75 mL nebulizers #1 ea 08/05/24 hydroxyzine HCl 10 mg tablet 10 mg PO Q6H PRN itching #10 tabs 08/09/24 Allergies Allergy/AdvReac Type Severity Reaction Status Date / Time cat dander Allergy Mild ADR-Itching Verified 08/09/24 05:58 grass pollen Allergy Mild ALGY-Sneezi Verified 08/09/24 05:58 ng Review of Systems 2 Const: Denies: fever(s) or chills Card: Denies: chest pain Resp: Denies: dyspnea GI: Denies: abdominal pain : Denies: dysuria, urinary frequency or urinary urgency Musc: Denies: neck pain or back pain Skin/Breast: Denies: rash Psych: Reports: anxiety PFSH ED 2 PFSH: Medical History Anemia Scoliosis (and kyphoscoliosis), idiopathic Diffuse large b-cell lymphoma, extranodal and solid organ sites Colon cancer Arthritis Environmental and seasonal allergies Anxiety Essential hypertension Surgical History Hx of cholecystectomy Hx of hernia repair Hx of total hysterectomy 1996 Family History Mother Diabetes Cancer ovarian, breast, Breast cancer Uterine cancer Grandmother Diabetes Father Congestive heart failure (CHF) Denies family history of Colon cancer Ovarian cancer Heart disease Hyperlipidemia Hypertension Thyroid disease Stroke Social History Smoking and tobacco/nicotine status: unknown if used tobacco/nicotine Second hand smoke exposure: No Alcohol intake: never Substance/Drug Use: never Adopted: No Caregiver/support person: No Lives independently: Yes Household members: none Housing: House Marital status: / service: No Current occupational status: retired Do you think of yourself as: Straight/Heterosexual Current gender identity: Female Physical Exam 2 Const: COMMON NORMALS: no acute distress GENERAL APPEARANCE: cooperative and comfortable ORIENTATION/CONSCIOUSNESS: Yes awake, Yes oriented to person, Yes oriented to place and Yes oriented to time HENMT: COMMON NORMALS: normocephalic, atraumatic and hearing grossly normal bilaterally HEAD & SCALP: normocephalic and atraumatic Resp: COMMON NORMALS: normal respiratory effort, No retractions, No use of accessory muscles and clear to auscultation bilaterally AUSCULTATION: clear to auscultation bilaterally Cardio: COMMON NORMALS: regular rate, regular rhythm and No murmurs present (Cardio) RATE: regular rate RHYTHM: regular rhythm GI: COMMON NORMALS: Soft to palpation and No hepatosplenomegaly present A USCULTATION: Yes normoactive bowel sounds PALPATION: Yes Soft to palpation, No Tenderness to palpation present (GI), No Guarding due to palpation present (GI) and Yes No hepatosplenomegaly present Extremity: COMMON NORMALS: normal to inspection, capillary refill normal, no clubbing, cyanosis or edema, no calf tenderness and no pedal edema Neuro: SENSORIUM/ORIENTATION: Yes oriented to person, Yes oriented to place and Yes oriented to time Skin: COMMON NORMALS: no rashes or lesions noted GENERAL SKIN EXAM: no rashes or lesions noted Course 2 Vital Signs: Vital signs: Vital Signs Temperature 98.3 F 08/09/24 05:57 Pulse Rate 76 08/09/24 06:44 Respiratory Rate 20 H 08/09/24 06:44 Blood Pressure 141/74 08/09/24 06:44 Pulse Oximetry 96 08/09/24 06:44 Oxygen Delivery Me thod Room Air 08/09/24 05:57 MDM - SOB/Dyspnea Medical Decision Making Patient presents Ipravent pain. She is resolved now her symptoms have all completely improved. Blood gas showed acute respiratory Kaia cysts. Chest x- ray is normal she did test positive for influenza. She has been using albuterol regularly. She also had some hypokalemia I think her hypokalemia and her anxiety are exacerbated by the albuterol. She was given potassium supplement here she is not wheezing at all today I think she could probably minimize the use of her albuterol to just when she has coughing fits or wheezing I would stop the budesonide and the antibiotic her chest x-ray was normal. additionally stopped the probiotic. Gave her hydroxyzine to use as needed 10 mg every 6 hours. Follow-up with her primary care doctor. Medical Records I reviewed the patient's medical records. Lab Data I reviewed the patient's lab results. 08/09/24 07:19 08/09/24 07:19 Labs/Radiology: Radiology Impressions Chest X-Ray 08/09/24 06:02 IMPRESSION: No acute cardiopulmonary process. Laboratory Results WBC 5.05 10^3/uL (3.29-11.43) 08/09/24 07:19 RBC 4.06 10^6/uL (3.85-5.65) 08/09/24 07:19 Hgb 12.30 g/dL (11.27-16.99) 08/09/24 07:19 Hct 36.3 % (36-47) 08/09/24 07:19 MCV 89.4 fl (85-98) 08/09/24 07:19 MCH 30.3 pg (27-33) 08/09/24 07:19 MCHC 33.9 g/dL (30-55) 08/09/24 07:19 RDW 13.1 % (12.1-15.1) 08/09/24 07:19 Plt Count 243 10^3/cmm (157-399) 08/09/24 07:19 MPV 8.5 fL (7.4-10.4) 08/09/24 07:19 Neut % (Auto) 75.4 % 08/09/24 07:19 Lymph % (Auto) 13.3 % 08/09/24 07:19 Kaufman % (Auto) 10.5 % 08/09/24 07:19 Eos % (Auto) 0.2 % 08/09/24 07:19 Baso % (Auto) 0.2 % 08/09/24 07:19 Neut # (Auto) 3.81 10^3/uL (1.8-7.7) 08/09/24 07:19 Lymph # (Auto) 0.7 10^3/uL (0.8-4.8) L 08/09/24 07:19 Kaufman # (Auto) 0.5 10^3/uL (0.2-0.9) 08/09/24 07:19 Eos # (Auto) 0.0 10^3/uL (0.0-0.8) 08/09/24 07:19 Baso # (Auto) 0.0 10^3/uL (0.0-0.1) 08/09/24 07:19 Nucleated RBC % (auto) 0 % 08/09/24 07:19 Nucleated RBCs # 0.0 /100WBC 08/09/24 07:19 Specimen Type Arterial 08/09/24 06:08 Sample Site Radial, left 08/09/24 06:08 ABG pH 7.69 (7.35-7.45) H* 08/09/24 06:08 ABG pCO2 16.8 mmHg (35-45) L* 08/09/24 06:08 ABG pO2 75.3 mmHg (80.0-100.0) L 08/09/24 06:08 ABG PO2/FiO2 Ratio 358 08/09/24 06:08 ABG HCO3 20.4 mmol/L (22-26) L 08/09/24 06:08 ABG O2 Saturation 98.4 08/09/24 06:08 ABG Base Excess 2.8 mmol/L (-2.0-2.0) H 08/09/24 06:08 Hans Test Pos 08/09/24 06:08 A-a O2 Gradient 6.7 mmHg (5-10) 08/09/24 06:08 Hematocrit 40.1 % (37-47) 08/09/24 06:08 Hgb O2 Saturation 96.8 % (95-100) 08/09/24 06:08 Carboxyhemoglobin 0.7 %THgb (0.4-20.1) 08/09/24 06:08 Methemoglobin 0.9 % (0.4-1.5) 08/09/24 06:08 Total Hemoglobin 13.1 g/dL (12-16) 08/09/24 06:08 Sodium 135.0 mmol/L (131-143) 08/09/24 06:08 Potassium 2.8 mmol/L (3.5-5.0) L 08/09/24 06:08 Glucose 106.0 mg/dL (70-115) 08/09/24 06:08 Ionized Calcium 1.1 mmol/L (1.1-1.4) 08/09/24 06:08 O2 Delivery Device Room air 08/09/24 06:08 FiO2 21.0 % 08/09/24 06:08 Field Marketing Director ID [email or web address] 08/09/24 06:08 Sodium 134 mmol/L (136-145) L 08/09/24 07:19 Potassium 2.9 mmol/L (3.5-5.1) L 08/09/24 07:19 Chloride 97 mmol/L (98-107) L 08/09/24 07:19 Carbon Dioxide 25 mmol/L (22-29) 08/09/24 07:19 Anion Gap 14.9 (5-19) 08/09/24 07:19 BUN 5 mg/dL (8-23) L 08/09/24 07:19 Creatinine 0.4 mg/dL (0.5-0.9) L 08/09/24 07:19 GFR Calculation Not Reportable 08/09/24 07:19 Glucose 98 mg/dL (65-115) 08/09/24 07:19 Calculated Osmolality 275 mOsm/kg (285-295) L 08/09/24 07:19 Calcium 9.1 mg/dL (8.5-10.5) 08/09/24 07:19 Magnesium 1.7 mg/dL (1.7-2.3) 08/09/24 07:19 Total Bilirubin 0.8 mg/dL (0.15-1.2) 08/09/24 07:19 AST 26 U/L (0-32) 08/09/24 07:19 ALT 17 U/L (0-33) 08/09/24 07:19 Alkaline Phosphatase 68 U/L (35-105) 08/09/24 07:19 Total Protein 6.6 g/dL (6.6-8.7) 08/09/24 07:19 Albumin 3.7 g/dL (3.5-5.2) 08/09/24 07:19 Globulin 2.9 g/dL (1.3-4.6) 08/09/24 07:19 Influenza A (PCR) Positive (Negative) 08/09/24 07:44 Influenza Type B (PCR) Negative (Negative) 08/09/24 07:44 RSV (PCR) Negative (Negative) 08/09/24 07:44 SARS-CoV-2 (PCR) Negative (Negative) 08/09/24 07:44 All radiology interpretation(s) finalized by discharge Discharge Plan Discharge Patient Disposition: Home Clinical Impression: Influenza A, Anxiety, Medication side effect, Hypokalemia Condition: Stable Prescriptions: New hydroxyzine HCl 10 mg tablet 10 mg PO Q6H PRN (Reason: itching) Qty: 10 0RF Discontinued cefuroxime axetil 500 mg tablet 500 mg PO BID Qty: 20 0RF budesonide [Pulmicort] 0.5 mg/2 mL suspension for nebulization 0.5 mg inhalation BID Qty: 60 2RF Probiotic Digestive Care 20 billion cell capsule See Rx Instructions .ROUTE .COMPLEX Rx Instructions: Take 1 capsule by mouth twice daily. No Action acetaminophen [Tylenol Arthritis Pain] 650 mg tablet extended release 650 mg PO DAILY PRN (Reason: Pain) albuterol sulfate 2.5 mg /3 mL (0.083 %) solution for nebulization 2.5 mg inhalation Q4H PRN (Reason: shortness of breath or wheezing) Qty: 75 2RF (DME) nebulizers Misc See Rx Instructions .ROUTE .MEDSUPPLY Qty: 1 0RF Rx Instructions: use every 4 hours as needed Discharge Orders: Discharge ED (Routine); Ordered 08/09/24 Ordered By: Jose A Meredith Referrals: Jonathan Pearl, SPORTS PHYSICIAN-C [Primary Care Provider] - Discharge Diet: Usual diet Discharge Activity: Resume usual activity Patient Instructions: Influenza (ED), Opioid Safety, Pain Management Activity Restrictions/Additional Instructions: Thank you for choosing [facility] for your healthcare needs today. It is very important that you follow up as instructed or that you return to the Emergency Department should you have concerns or if your condition changes or worsens in any way. You are seen in the emergency room this morning with an episode of hyperventilation. Some of this may have been brought about as a side effect of the albuterol. Your potassium was also slightly low this is also likely a side effect of the albuterol. You are given a potassium supplement as a one-time dose which should correct the deficit recommend holding off on the albuterol and only using when you feel like you are coughing significantly or wheezing. Would stop the budesonide cefuroxime and a probiotic. You did pass test positive for influenza. Given the length of time you have been ill do not recommend antivirals at this time. Print Language: Latvian Coding Level of Care Code ED [address] Magistrate for Sofi Wesley
[2024-08-09 06:22] LABS: Alveolar-Arterial Oxygen Gradi 6.7 mmHg (5-10); Arterial Blood Gas Hematocrit 40.1 % (37-47); Base Excess ABG 2.8 mmol/L (-2.0-2.0); Blood Gas Allen Test Pos; Blood Gas Operator Identificat gerca; Blood Gas Sample Site Radial, left; Blood Gas Sample Type Arterial; Carboxyhemoglobin 0.7 %THgb (0.4-20.1); HCO3 ABG 20.4 mmol/L (22-26); HGB O2 Sat 96.8 % (95-100); Ionized Calcium Level - ABG 1.1 mmol/L (1.1-1.4); Methemoglobin 0.9 % (0.4-1.5); Oxygen Device ROOM AIR; Oxygen Saturation ABG 98.4; PO2 ABG 75.3 mmHg (80.0-100.0); PO2 FiO2 Ratio Arterial Blood 358; Potassium Level - ABG 2.8 mmol/L (3.5-5.0); Total Hemoglobin 13.1 g/dL (12-16)
[2024-08-09 06:24] LABS: ABG PCO2 16.8 mmHg (35-45); ABG PH Result 7.69 (7.35-7.45)
[2024-08-09] MEDS: LORazepam 2 mg/mL INJ 1 mL 1 MG IVP (06:26)
[2024-08-09 06:44] VITALS: BP 141/74; PULSE 76; RESP 20; O2SAT 96
[2024-08-09 07:24] LABS: Basophils % 0.2 %; Eosinophils % 0.2 %; Hematocrit 36.3 % (36-47); Lymphocytes # 0.7 10^3/uL (0.8-4.8); Lymphocytes % 13.3 %; Mean Corpuscular HGB Conc 33.9 g/dL (30-55); Mean Corpuscular Hemoglobin 30.3 pg (27-33); Mean Corpuscular Volume 89.4 fl (85-98); Mean Platelet Volume 8.5 fL (7.4-10.4); Monocytes # 0.5 10^3/uL (0.2-0.9); Monocytes % 10.5 %; Neutrophils # 3.81 10^3/uL (1.8-7.7); Neutrophils % 75.4 %; Nucleated Red Blood Cells % 0 %; Platelet Count 243 10^3/cmm (157-399); Red Blood Count 4.06 10^6/uL (3.85-5.65); Red Cell Distribution Width 13.1 % (12.1-15.1); White Blood Count 5.05 10^3/uL (3.29-11.43)
[2024-08-09 07:41] LABS: Alanine Aminotransferase 17 U/L (0-33); Albumin Level 3.7 g/dL (3.5-5.2); Alkaline Phosphatase 68 U/L (35-105); Anion Gap 14.9 (5-19); Aspartate Amino Transferase 26 U/L (0-32); Blood Urea Nitrogen 5 mg/dL (8-23); Calcium 9.1 mg/dL (8.5-10.5); Carbon Dioxide 25 mmol/L (22-29); Chloride 97 mmol/L (98-107); Creatinine Clr Calc Pharmacy 52.0058; Globulin 2.9 g/dL (1.3-4.6); Glucose 98 mg/dL (65-115); Osmolality Calculated 275 mOsm/kg (285-295); Sodium 134 mmol/L (136-145); Total Bilirubin 0.8 mg/dL (0.15-1.2); Total Protein 6.6 g/dL (6.6-8.7)
[2024-08-09 07:49] LABS: Potassium 2.9 mmol/L (3.5-5.1)
[2024-08-09] MEDS: potassium chloride oral liq 20 mEq/15 mL UDC 60 MEQ PO (07:58)
[2024-08-09 08:00] VITALS: BP 128/77; PULSE 79; O2SAT 97
--- NOTE | 2024-08-09 08:17 | PC.PHAR ---
Pt states all but Tylenol are temporary medications and normally takes no medications at all.
[2024-08-09 08:27] LABS: Influenza A POSITIVE (Negative); Influenza B NEGATIVE (Negative); Respiratory Syncytial Virus Ce NEGATIVE (Negative); SARS-CoV-2 PCR NEGATIVE (Negative)
--- NOTE | 2024-08-09 08:39 | ECG_ITS ---
[facility] Test Date: 2024-08-09 Pat Name: Deyanira Yoon Department: Room: Gender: Female Engineer Process: : 1945 Requested By: Jose A Lockwood Order Number: [id number] Carlyle MD: Jacobo Greenberg M.D. Measurements Intervals Chama Rate: 76 P: 54 MD: 162 QRS: 0 QRSD: 88 T: 5 QT: 386 QTc: 435 Interpretive Statements SINUS RHYTHM Compared to ECG 04/01/2022 09:38:42 No significant changes Electronically Signed On 08-10-2024 07:45:37 RIPSHEAR OPERATOR by Jacobo Greenberg M.D. [email or web address]
[2024-08-09 08:58] LABS: Magnesium 1.7 mg/dL (1.7-2.3)
[2024-08-09 09:46] VITALS: BP 128/80; PULSE 81; O2SAT 96
== END 2024-08-09 09:48 | disposition home or self-care (01) ==
PROVIDERS: Emergency Provider Family Medicine; PCP Nurse Practitioner
DX: J10.1 Influenza due to other identified influenza virus with other respiratory manifestations (principal); F41.9 Anxiety disorder, unspecified; T50.905A Adverse effect of unspecified drugs, medicaments and biological substances, initial encounter; E87.6 Hypokalemia; X58.XXXA Exposure to other specified factors, initial encounter; Z11.52 Encounter for screening for COVID-19; Z85.038 Personal history of other malignant neoplasm of large intestine; I10 Essential (primary) hypertension
CPT/HCPCS: 36415; 36600; 71045; 80051; 80053; 82330; 82805; 83735; 85025; 87637; 93005; 96374; 99285; J2060

== ENCOUNTER → 2024-08-21 10:56 | Outpatient (BNVA) | payer MEDICARE, SELFPAY | PROVIDERS: PCP Nurse Practitioner; Visit Provider Nurse Practitioner | DX: F41.9 Anxiety disorder, unspecified (principal) | CPT/HCPCS: 80048 ==

== ENCOUNTER 2024-09-10 11:58 | Oncology outpatient (recurring) (ONCR) | payer MEDICARE, SELFPAY ==
[2024-09-10 12:22] LABS: Basophils % 0.6 %; Eosinophils # 0.2 10^3/uL (0.0-0.8); Eosinophils % 2.8 %; Hematocrit 40.4 % (36-47); Lymphocytes # 1.6 10^3/uL (0.8-4.8); Lymphocytes % 29.3 %; Mean Corpuscular HGB Conc 31.4 g/dL (30-55); Mean Corpuscular Hemoglobin 30.5 pg (27-33); Mean Corpuscular Volume 97.1 fl (85-98); Mean Platelet Volume 9.3 fL (7.4-10.4); Monocytes # 0.6 10^3/uL (0.2-0.9); Monocytes % 10.3 %; Neutrophils # 3.09 10^3/uL (1.8-7.7); Neutrophils % 56.8 %; Nucleated Red Blood Cells % 0 %; Platelet Count 276 10^3/cmm (157-399); Red Blood Count 4.16 10^6/uL (3.85-5.65); Red Cell Distribution Width 14.6 % (12.1-15.1); White Blood Count 5.43 10^3/uL (3.29-11.43)
[2024-09-10 12:39] LABS: Alanine Aminotransferase 15 U/L (0-33); Albumin Level 4.2 g/dL (3.5-5.2); Alkaline Phosphatase 100 U/L (35-105); Anion Gap 14.4 (5-19); Aspartate Amino Transferase 25 U/L (0-32); Blood Urea Nitrogen 12 mg/dL (8-23); Calcium 9.4 mg/dL (8.5-10.5); Carbon Dioxide 27 mmol/L (22-29); Chloride 105 mmol/L (98-107); Globulin 2.9 g/dL (1.3-4.6); Glucose 84 mg/dL (65-115); Lactate Dehydrogenase 216 U/L (135-214); Osmolality Calculated 293 mOsm/kg (285-295); Potassium 4.4 mmol/L (3.5-5.1); Sodium 142 mmol/L (136-145); Total Bilirubin 0.4 mg/dL (0.15-1.2); Total Protein 7.1 g/dL (6.6-8.7)
== END 2024-10-09 23:59 | disposition home or self-care (01) ==
PROVIDERS: Nurse Practitioner; PCP Nurse Practitioner; Visit Provider Internal Medicine Medical Oncology
DX: Z08 Encounter for follow-up examination after completed treatment for malignant neoplasm (principal); Z85.72 Personal history of non-Hodgkin lymphomas; N81.10 Cystocele, unspecified
CPT/HCPCS: 36415; 80053; 83615; 85025; 99214

== ENCOUNTER 2024-12-31 11:32 | Oncology outpatient (recurring) (ONCR) | payer MEDICARE, SELFPAY ==
--- NOTE | 2024-12-27 11:00 | PETR_ITS ---
PROCEDURE INFORMATION: Exam: PET/CT Skull Base to Mid-thigh Exam date and time: 12/27/2024 12:02 PM Age: 79 years old Clinical indication: Condition or disease; Condition/disease: Nodule of left lung LABS AND CLINICAL REPORTS: Glucose: 81 mg/dl Treatment strategy for malignancy (PET staging): Initial Staging (PI) TECHNIQUE: Imaging protocol: Following at least four-hour fasting and following the injection of radiopharmaceutical, low dose CT images were obtained. Then, PET images were obtained. Attenuation corrected images were constructed using the CT scan. Fused images of PET and CT were reviewed. The standardized uptake values (SUV) reported below are maximum values within a region of interest, expressed in gm/ml. Exam includes orbital meatal line to mid-thigh. SUV normalization method: BodyWeight Radiopharmaceutical: 10.34 mCi F-18 FDG (Fluorodeoxyglucose), IV. Time of imaging post radiopharmaceutical administration: 46 minutes Injection site: R FOREARM COMPARISON: PT PET WB melanoma SUBSEQ [id number] 03/28/2023 11:38 AM FINDINGS: Brain: Visualized brain has normal physiologic uptake. Pharynx: No abnormal uptake. Larynx: No abnormal uptake. Lungs, pleura and trachea: No abnormal uptake. Scattered subpleural nodules along the anterior bilateral upper lobes, unchanged. Calcified lingula granuloma. No new pulmonary nodule. Previously noted 8 mm left lower lobe pulmonary nodule has since resolved. Heart: Normal physiologic uptake. Mediastinal space: No abnormal uptake. Liver: No abnormal uptake. Gallbladder and biliary ducts: No abnormal uptake. Pancreas: No abnormal uptake. Spleen: No abnormal uptake. Adrenal glands: No abnormal uptake. Kidneys and ureters: Normal physiologic uptake. Stomach and bowel: No abnormal uptake. 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 Lymph nodes: No abnormal uptake. No lymphadenopathy in the head, neck, chest, abdomen, pelvis, and extremities. 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 Associated degenerative increased FDG uptake and inflammatory changes. Otherwise, no abnormal uptake in the visualized axial and appendicular skeleton. Posterior lumbosacral fusion. Soft tissues: No abnormal uptake in the visualized head, neck, chest, abdomen, pelvis, and extremities. METRICS: Mediastinal blood pool: Mean SUV of 2.2 Liver uptake: Mean SUV of 2.5 PET/PET skull to thigh INIT [id number] IMPRESSION: 1. No abnormal radiotracer uptake ([place]ville 1). 2. Previously noted 8 mm left lower lobe pulmonary nodule has resolved. No new pulmonary nodule. 3. Stable subpleural nodules along the anterior aspect of bilateral upper lobes.
[2024-12-31 11:57] LABS: Hematocrit 39.4 % (36-47); Hemoglobin 12.80 g/dL (11.27-16.99); Mean Corpuscular HGB Conc 32.5 g/dL (30-55); Mean Corpuscular Hemoglobin 30.1 pg (27-33); Mean Corpuscular Volume 92.7 fl (85-98); Nucleated Red Blood Cells % 0 %; Platelet Count 192 10^3/cmm (157-399); Red Blood Count 4.25 10^6/uL (3.85-5.65); White Blood Count 4.81 10^3/uL (3.29-11.43)
[2024-12-31 12:12] LABS: Alanine Aminotransferase 11 U/L (0-33); Albumin Level 4.0 g/dL (3.5-5.2); Alkaline Phosphatase 82 U/L (35-105); Anion Gap 16.4 (5-19); Aspartate Amino Transferase 22 U/L (0-32); Blood Urea Nitrogen 9 mg/dL (8-23); Calcium 9.2 mg/dL (8.5-10.5); Carbon Dioxide 24 mmol/L (22-29); Chloride 100 mmol/L (98-107); Creatinine Clr Calc Pharmacy 49.5157; Globulin 2.8 g/dL (1.3-4.6); Glucose 84 mg/dL (65-115); Osmolality Calculated 280 mOsm/kg (285-295); Potassium 4.4 mmol/L (3.5-5.1); Sodium 136 mmol/L (136-145); Total Protein 6.8 g/dL (6.6-8.7)
== END 2025-01-09 23:59 | disposition home or self-care (01) ==
PROVIDERS: PCP Nurse Practitioner; Visit Provider Internal Medicine Medical Oncology
DX: Z53.9 Procedure and treatment not carried out, unspecified reason; Z08 Encounter for follow-up examination after completed treatment for malignant neoplasm; Z85.72 Personal history of non-Hodgkin lymphomas; R91.1 Solitary pulmonary nodule; M79.2 Neuralgia and neuritis, unspecified; Z92.21 Personal history of antineoplastic chemotherapy
CPT/HCPCS: 36415; 78815; 80053; 83615; 85025; 99215; A9552

== ENCOUNTER 2025-04-01 11:30 | Oncology outpatient (recurring) (ONCR) | payer MEDICARE, SELFPAY ==
[2025-04-01 11:50] LABS: Hematocrit 38.6 % (36-47); Hemoglobin 12.70 g/dL (11.27-16.99); Mean Corpuscular HGB Conc 32.9 g/dL (30-55); Mean Corpuscular Hemoglobin 31.1 pg (27-33); Mean Corpuscular Volume 94.6 fl (85-98); Nucleated Red Blood Cells % 0 %; Platelet Count 232 10^3/cmm (157-399); Red Blood Count 4.08 10^6/uL (3.85-5.65); White Blood Count 6.21 10^3/uL (3.29-11.43)
[2025-04-01 12:05] LABS: Alanine Aminotransferase 15 U/L (0-33); Albumin Level 4.2 g/dL (3.5-5.2); Alkaline Phosphatase 105 U/L (35-105); Anion Gap 15.5 (5-19); Aspartate Amino Transferase 22 U/L (0-32); Blood Urea Nitrogen 10 mg/dL (8-23); Calcium 9.6 mg/dL (8.5-10.5); Carbon Dioxide 26 mmol/L (22-29); Chloride 102 mmol/L (98-107); Globulin 2.7 g/dL (1.3-4.6); Glucose 82 mg/dL (65-115); Osmolality Calculated 286 mOsm/kg (285-295); Potassium 4.5 mmol/L (3.5-5.1); Sodium 139 mmol/L (136-145); Total Protein 6.9 g/dL (6.6-8.7)
== END 2025-04-11 23:59 | disposition home or self-care (01) ==
PROVIDERS: Nurse Practitioner; PCP Nurse Practitioner; Visit Provider Internal Medicine Medical Oncology
DX: Z08 Encounter for follow-up examination after completed treatment for malignant neoplasm (principal); Z85.72 Personal history of non-Hodgkin lymphomas; Z92.21 Personal history of antineoplastic chemotherapy; Z92.25 Personal history of immunosuppression therapy; Z79.899 Other long term (current) drug therapy; C18.9 Malignant neoplasm of colon, unspecified
CPT/HCPCS: 36415; 80053; 83615; 85025; 99214

== ENCOUNTER 2025-06-11 13:10 | Outpatient (CLI) | payer MEDICARE, SELFPAY ==
--- NOTE | 2025-06-11 13:30 | XR_ITS ---
WS: [id number] DEXA (DUAL ENERGY X-RAY ABSORPTIOMETRY) Bone mineral density was performed using a [employer] machine. HISTORY: Z78.0 - Asymptomatic menopausal state COMPARISON: None available. Left forearm BMD: 0.588 g/cm2. T score: -3.3 Z score: -0.7 Total hip BMD: Left: 0.581 g/cm2. T score: -3.4 Z score: -1.3 Right: 0.527 g/cm2. T score: -3.8 Z score: -1.8 10 year probability of a major osteoporotic fracture is 58.1%. XR/XR DEXA axial skeleton* [id number] IMPRESSION: OSTEOPOROSIS based upon the WHO classification for females.
== END 2025-06-11 13:11 | disposition home or self-care (01) ==
LOC: RAD 13:11
PROVIDERS: PCP Nurse Practitioner; Visit Provider Nurse Practitioner
DX: Z13.820 Encounter for screening for osteoporosis (principal); Z78.0 Asymptomatic menopausal state; M81.0 Age-related osteoporosis without current pathological fracture
CPT/HCPCS: 77080